=== PATIENT | female | born 1960 | race Caucasian/White ===

== ENCOUNTER → 2016-10-01 | Outpatient (CLI) | payer OTHER ==
[~2016-10-01] MED LIST: ACET500T13 PO; ADVI200T PO; ALPR-138 PO; ALPR0.25 PO; BACT800T5 PO; BUPR150CR PO; CHOL50008 PO; CLIN1CAP6 PO; COLL30T TOPICAL; EASY1MIS7; GLIP10TA6 PO; GLUC10TA3 PO; GLUCOSE METER; GLUCTAB PO; GLUCTES27; Glucometer; HYDR-3516 PO; HYDR1CRE TOP; IBUP200C PO; INSU100V2 SQ; LEVA750T9 PO; LEVEMIR SQ; LEVO100T4 PO; LEVO100T5 PO; LISI-363 PO; LISI-515 PO; LOVA20TA PO; METR-1 PO; MULTCAP3 PO; MULTTAB67 PO; NOVOLOGP2 SQ; NOVORP2 SQ; SENN1TAB PO; VITA500015 PO; WALKER; WELL150T PO; ZOFR4TAB PO; [UNRECOGNIZED DRUG - OTHER]; [UNRECOGNIZED DRUG - SUPPLY]; [UNRECOGNIZED DRUG - SUPPLY]; glucose test strips
[2016-10-01 13:38] LABS: ANION GAP 10 MEQ/L (5-15); BICARBONATE 26.1 MEQ/L (21.0-32.0); BLOOD UREA NITROGEN 23 MG/DL (7-18); CHLORIDE 100 MEQ/L (98-107); GLOMERULAR FILTRATION RATE 73 ML/MIN (>89); HDL CHOLESTEROL 51.3 MG/DL (40.0-60.0); LDL CHOLESTEROL 117 MG/DL (0-99); POTASSIUM 4.9 MEQ/L (3.5-5.1); SODIUM (NA) 136 MEQ/L (136-145)
[2016-10-01 16:03] LABS: HEMOGLOBIN A1a 1.1 %
[2016-10-01 17:20] LABS: HEMOGLOBIN A1b 3.7 %; HEMOGLOBIN P3 5.2 %
[2016-10-01 17:21] LABS: HEMOGLOBIN LA1C 3.2 %
== END ==
LOC: PLAB 11:06
PROVIDERS: ATTEND Family Medicine
DX: E78.5 Hyperlipidemia, unspecified (principal); I10 Essential (primary) hypertension; Z11.9 Encounter for screening for infectious and parasitic diseases, unspecified
CPT/HCPCS: 80048; 80061; 83036

== ENCOUNTER 2017-01-21 20:21 | Inpatient (IN) | payer OTHER ==
[~2017-01-21] VITALS: Ht 167.6 cm; Wt 98.6 kg
[~2017-01-21 20:21] MED LIST changes: -ACET500T13 PO; -ADVI200T PO; -ALPR-138 PO; -ALPR0.25 PO; -BACT800T5 PO; -BUPR150CR PO; -COLL30T TOPICAL; -EASY1MIS7; -GLUC10TA3 PO; -HYDR-3516 PO; -HYDR1CRE TOP; -INSU100V2 SQ; -LEVA750T9 PO; -LEVEMIR SQ; -LEVO100T4 PO; -LISI-363 PO; -METR-1 PO; -MULTCAP3 PO; -NOVOLOGP2 SQ; -NOVORP2 SQ; -SENN1TAB PO; -VITA500015 PO; -WALKER; -WELL150T PO; -ZOFR4TAB PO; -[UNRECOGNIZED DRUG - OTHER]
[2017-01-21 20:25] VITALS: BP 199/93; PULSE 113; RESP 16; TEMP 99.5; O2SAT 97
[2017-01-21] MEDS ORDERED: MORPHINE SULFATE 8 MG/ML INJ IV PUSH ONE (21:30)
[2017-01-21] MEDS ORDERED: CLINDAMYCIN INJ 900 MG in SODIUM CHLORIDE 0.9% INJ 100 ML IV ONE (21:30)
[2017-01-21] MEDS ORDERED: TETANUS/DIPHTHERIA TOXOID ADULT 0.5 ML VIAL IM ONE (21:30)
[2017-01-21] MEDS ORDERED: ONDANSETRON HCL 4 MG/2 ML VIAL IV PUSH ONE (21:30)
[2017-01-21] MEDS ORDERED: SODIUM CHLORIDE 0.9% FLUSH 10 ML FLUSH IVF PRN (21:30)
[2017-01-21] MEDS ORDERED: LIDOCAINE 1%/EPINEPHrine 1:100,000 SOLN 20 ML VIAL INFIL ONE (21:30)
--- NOTE | 2017-01-21 21:40 | PD ---
HPI . Right foot sore Chief Complaint: Laceration/Skin Injury Time Seen by Provider: 21:20 Travel History International Travel<30 days: No Contact w/Intl Traveler<30days: No Traveled to known affect area: No History of Present Illness HPI This is a diabetic patient who presents with the chief complaint of a sore on her right foot. She reports she's had a callus on her foot for a while and it came off yesterday. It is now painful and red and is draining some purulent material. She rates her pain as 6/10. She states that she has had a poor appetite as well as myalgias and nausea. There has been no known fever. No exacerbating or relieving factors. PFSH Social History Tobacco Use: No Allergies-Medications (Allergen,Severity, Reaction): Coded Allergies: No Known Allergies (Unverified , 01/21/17) Reported Meds & Prescriptions Reported Meds & Active Scripts Active Lisinopril 20 Mg Tab 20 Mg PO DAILY Jeffry Contour Next Blood Test Strips (Blood Glucose Test Strips) 1 Katelyn Katelyn 1 Strip BID Clindamycin (Clindamycin HCl) 300 Mg Cap 300 Mg PO QID Lovastatin 20 Mg Tab 20 Mg PO DAILY Levothyroxine (Levothyroxine Sodium) 100 Mcg Tab 100 Mcg PO DAILY Glipizide 10 Mg Tab 10 Mg PO BIDAC Take 30 minutes before a meal [contour next test] Strips BID [glucose test strips] 1 Strips BID [contour next lancets] 1 QID [glucose meter] QID Contour Next Blood Glucose Meter [Glucometer] 1 QID check glucose qid ac and hs, keep log. Include lancets, wipes. Reported Multiple Vitamin 1 Tab 1 Tab PO DAILY Ibuprofen 200 Mg Cap 200 Mg PO Q6H PRN Glucophage XR (Metformin HCl) 500 Mg Crissy 1,000 Mg PO TWICE A DAY With evening meal Vitamin D3 (Cholecalciferol) 5,000 Unit Tab 5,000 Units PO DAILY Review of Systems Except as stated in HPI: all other systems reviewed are Neg General / Constitutional: Positive: Other (malaise), No: Fever, Chills Gastrointestinal: Positive: Nausea, Loss of Appetite Musculoskeletal: Positive: Myalgias Skin: Positive Change in Pigmentation, Positive Lesions Physical Exam Narrative GENERAL: Awake and alert and in no acute distress. SKIN: Warm and dry. Erythema of the right foot at the first MTP joint. She has an ulcer on the plantar aspect with purulent drainage. HEAD: Atraumatic. Normocephalic. EYES: Pupils equal and round. NECK: Trachea midline. CARDIOVASCULAR: Regular rate and rhythm. RESPIRATORY: No accessory muscle use. MUSCULOSKELETAL: No obvious deformities. No edema. NEUROLOGICAL: Awake and alert. No obvious cranial nerve deficits. Motor grossly within normal limits. Normal speech. PSYCHIATRIC: Appropriate mood and affect; insight and judgment normal. Data Data Last Documented VS Vital Signs Date Time Temp Pulse Resp B/P Pulse Ox O2 Delivery O2 Flow Rate FiO2 01/21/17 20:25 99.5 113 16 199/93 97 Room Air Orders Basic Metabolic Panel (Bmp) (01/21/17 21:24) Complete Blood Count With Diff (01/21/17 21:24) Blood Culture (01/21/17 21:24) Wound Culture And Gram Stain (01/21/17 21:24) Iv Access Insert/Monitor (01/21/17 21:24) Sodium Chloride 0.9% Flush (Ns Flush) (01/21/17 21:30) Clindamycin Inj (Cleocin Inj) (01/21/17 21:30) Tetanus/Diphtheria Tox Adult (Tetanus/Di (01/21/17 21:30) Morphine Inj (Morphine Inj) (01/21/17 21:30) Ondansetron Inj (Zofran Inj) (01/21/17 21:30) Foot, Limited (2vws) (01/21/17 21:24) C-Reactive Protein (Crp) (01/21/17 21:24) Lidoca-Epi Pf 1%-1:200,000 Inj (Xylocain (01/21/17 22:45) Non-Formulary Drug (01/21/17 22:30) Labs Laboratory Tests Test 01/21/17 22:05 White Blood Count 17.9 TH/MM3 Red Blood Count 4.45 MIL/MM3 Hemoglobin 12.8 GM/DL Hematocrit 38.1 % Mean Corpuscular Volume 85.6 FL Mean Corpuscular Hemoglobin 28.7 PG Mean Corpuscular Hemoglobin 33.6 % Concent Red Cell Distribution Width 13.0 % Platelet Count 292 TH/MM3 Mean Platelet Volume 7.7 FL Neutrophils (%) (Auto) 79.2 % Lymphocytes (%) (Auto) 13.0 % Monocytes (%) (Auto) 6.6 % Eosinophils (%) (Auto) 0.4 % Basophils (%) (Auto) 0.8 % Neutrophils # (Auto) 14.2 TH/MM3 Lymphocytes # (Auto) 2.3 TH/MM3 Monocytes # (Auto) 1.2 TH/MM3 Eosinophils # (Auto) 0.1 TH/MM3 Basophils # (Auto) 0.1 TH/MM3 CBC Comment DIFF FINAL Differential Comment Sodium Level 131 MEQ/L Potassium Level 4.1 MEQ/L Chloride Level 95 MEQ/L Carbon Dioxide Level 27.6 MEQ/L Anion Gap 8 MEQ/L Blood Urea Nitrogen 14 MG/DL Creatinine 0.92 MG/DL Estimat Glomerular Filtration 63 ML/MIN Rate Random Glucose 345 MG/DL Calcium Level 8.9 MG/DL C-Reactive Protein 15.60 MG/DL MDM Medical Decision Making Medical Screen Exam Complete: Yes Emergency Medical Condition: Yes Medical Record Reviewed: Yes (patient was seen in urgent care on 11/05/16 for a wound on her left fifth toe. It was treated with clindamycin.) Differential Diagnosis Differential diagnosis of diabetic foot ulcer includes superficial wound, cellulitis, abscess, osteomyelitis, sepsis Narrative Course Patient presents with a diabetic foot ulcer on the right foot. She will be evaluated for possible osteomyelitis. I plan to debride the wound. Vital Signs Date Time Temp Pulse Resp B/P Pulse Ox O2 Delivery O2 Flow Rate FiO2 01/21/17 20:25 99.5 113 16 199/93 97 Room Air Last Impressions Foot X-Ray 01/21/172123 Signed Impressions: Service Date/Time: Saturday, January 21, 2017 21:37 - CONCLUSION: No radiographic evidence to suggest osteomyelitis. Kurt Geiger Jr., MD The x-ray was independently viewed by me. CBC Diagram 01/21/17 22:05 BMP Diagram 01/21/17 22:05 C-reactive protein is 15.6 The plan is to admit this patient for IV antibiotics. She will probably need to have an MRI of her foot and referral to podiatry. Procedures Procedure Narrative Her foot was prepped with Betadine. It was then anesthetized with about 6 cc of 1% lidocaine with epi. Necrotic tissue was then debrided from the area. I debrided it until I got to tissue that bled. I did get cultures from the wound. She tolerated the procedure well without complication. She had very little sensation. She didn't feel the lidocaine much at all. The ulceration extends into the muscular tissue but not to the bone. Sepsis Criteria SIRS Criteria (2 or more): Heart rate over 90, WBC > 97201, < 4000 or > 10% bands Sepsis Criteria (SIRS+source): Infect source susp/known Criteria Outcome: Meets SIRS criteria, Meets sepsis criteria Diagnosis Primary Impression: Diabetic foot ulcer Qualified Code: E11.621 - Diabetic ulcer of toe of right foot associated with type 2 diabetes mellitus, with necrosis of muscle Additional Impression: Sepsis affecting skin Admitting Information Admitting Physician Requests: Admit Patient Instructions: Diabetic Foot Ulcers (DC), General Instructions Condition: Stable Cecille Robison MD Jan 21, 2017 21:40
--- NOTE | 2017-01-21 21:51 | RADRPT ---
EXAM DATE/TIME: 01/21/2017 21:37 [facility] COMPARISON: No previous studies available for comparison. INDICATIONS : Pain and inflammation on pedal surface under first digit. MEDICAL HISTORY : None. SURGICAL HISTORY : None. ENCOUNTER: Initial ACUITY: 1 day PAIN SCORE: 5/10 LOCATION: Right pedal surface under first digit. FINDINGS: Two view examination of the right foot demonstrates no soft tissue swelling, dislocation, or fracture . No cortical destruction or lucency. Spurring of the calcaneus. Degenerative changes involving the m idfoot. The calcaneus is intact. Bony mineralization is normal. CONCLUSION: No radiographic evidence to suggest osteomyelitis. Kurt Geiger Jr., MD on January 21, 2017 at 21:48 Board Certified Radiologist. This report was verified electronically.
[2017-01-21] MEDS ORDERED: LIDOCAINE 1%/EPINEPHrine 1:100,000 SOLN 30 ML VIAL INFIL ONE (22:00)
[2017-01-21 22:22] LABS: AUTOMATED NEUTROPHIL # 14.2 TH/MM3 (1.8-7.7); BASOPHIL # 0.1 TH/MM3 (0-0.2); BASOPHIL % 0.8 % (0.0-2.0); EOSINOPHIL # 0.1 TH/MM3 (0-0.4); EOSINOPHIL % 0.4 % (0.0-4.0); HEMATOCRIT 38.1 % (35.0-46.0); HEMO FLAGS DIFF FINAL; LYMPHOCYTE # 2.3 TH/MM3 (1.0-4.8); MEAN CELL VOLUME 85.6 FL (80.0-100.0); MEAN CORPUSCULAR HEMOGLOBIN 28.7 PG (27.0-34.0); MEAN CORPUSCULAR HGB CONC 33.6 % (32.0-36.0); MONO % 6.6 % (0.0-8.0); NEUT % 79.2 % (16.0-70.0); PLATELET COUNT 292 TH/MM3 (150-450); RED BLOOD COUNT 4.45 MIL/MM3 (4.00-5.30); WHITE BLOOD COUNT 17.9 TH/MM3 (4.0-11.0)
[2017-01-21] MEDS ORDERED: NON-FORMULARY DRUG ONE (22:30)
[2017-01-21] MEDS ORDERED: LIDOCAINE 1%/EPINEPHrine 1:200,000 PF SOLN 10 ML VIAL INFIL ONE (22:45)
[2017-01-21 22:47] LABS: BICARBONATE 27.6 MEQ/L (21.0-32.0); POTASSIUM 4.1 MEQ/L (3.5-5.1)
--- NOTE | 2017-01-21 23:15 | HHI.HP ---
[facility] Service Family Medicine Primary Care Physician Steph Bowman MD Admission Diagnosis diabetic foot ulcer Diagnoses: International Travel<30 Days: No Contact w/Intl Traveler<30days: No Known Affected Area: No History of Present Illness Ms. Rosales is a 56 y/o F with a PMHx of T2DM, HTN, and depression/anxiety presenting with a R foot ulceration. She reports that this ulceration started 3 weeks ago under a callus formation on the ball of her foot. Last night she states that the wound "exploded" and changed colors from white to purple with the callus coming off. She has also noticed swelling of her R foot over the last 24 hours with some serosanguineous drainage prior to presenting to the ER. Her pain prior to presenting was an 8/10 on the plantar aspect of her R foot without radiation. She endorses anorexia, nausea, fevers, myalgias, and diaphoresis over the last 24 hours. She has neuropathy from her DM, but states that her overall felling in the RLE has not changed. Of note earlier this year she had large callus on her L foot, but also became ulcerated. She was seen by an urgent care for debridement and was prescribed Clindamycin. She was seen by her PCP, Dr. Milagros Bowman of the [facility], and was referred to ID for further management and Endocrinology for further management of DM. Her only other complaint is thigh cramps for which she is concerned about her statin medication. She is able to ambulate and rates the cramps as very mild. On ROS she reports multiple semi-formed yellow stools over the last 24 hours without any blood. She is unable to report any dietary changes or other precipitating factors that could be causing these changes in BMs. Otherwise she has no complaints and denies any SOB, chest pain, V/D, ABD pain, or calf tenderness. ( Hector Rodríguez MD R1) Review of Systems Constitutional: COMPLAINS OF: Fever, Chills Endocrine: COMPLAINS OF: Polydipsia, DENIES: Polyuria Eyes: DENIES: Blurred vision Ears, nose, mouth, throat: DENIES: Throat pain Respiratory: DENIES: Cough, Shortness of breath Cardiovascular: DENIES: Chest pain, Palpitations Gastrointestinal: COMPLAINS OF: Diarrhea (Yellow, partially formed stool over last 24 hours ), Nausea, DENIES: Abdominal pain, Vomiting Genitourinary: DENIES: Dysuria Musculoskeletal: DENIES: Joint pain, Back pain Integumentary: DENIES: Rash Hematologic/lymphatic: DENIES: Lymphadenopathy Neurologic: COMPLAINS OF: Headache Psychiatric: DENIES: Mood changes (Hector Rodríguez MD R1) Past Family Social History Past Medical History Hypertension Type 2 diabetes Hypothyroidism - has not been taking her medication HPLD Overdose in a suicide attempt at age 11 because of incest Left wrist fracture age 9 Frozen shoulder on the left resolved with physical therapy and swimming Past Surgical History Bilateral cataracts 2010 Cosmetic surgery left cheek. (Hector Rodríguez MD R1) Allergies: Coded Allergies: No Known Allergies (Unverified , 01/21/17) Family History Father at age 83 of emphysema, he also had type 2 diabetes and multiple cardiac caths. He was on hospice Mother living at 85 with elevated cholesterol and depression Brother age 57 with bipolar disorder from whom she is estranged Brother age 51 with hypertension, probably alcoholic Family history is positive for diabetes in her paternal grandmother, heart disease in her paternal aunt and uncle, paternal aunt of sudden CT. Hypertension in her mother, paternal great-grandfather committed suicide. Alcohol is in her brother, depression on both sides of the family. Paternal grandmother had colon cancer and paternal aunt had breast cancer bilaterally. Denies TB or kidney disease Social History She is . 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 She travels annually overseas, usually to [place]. Occasional alcohol Smoked socially in college over 30 years ago Denies illicit drug use 2-3 caffeine drinks daily Exercise walking and swimming which she has suspended since she experienced these symptoms. (Hector Rodríguez MD R1) Physical Exam Vital Signs Vital Signs Date Time Temp Pulse Resp B/P Pulse Ox O2 Delivery O2 Flow Rate FiO2 01/21/17 20:25 99.5 113 16 199/93 97 Room Air Physical Exam GENERAL: Well-nourished, well-developed 56-year-old female lying in bed in no acute distress SKIN: Warm and dry. No rash. HEENT: Atraumatic, normocephalic with EOMI. Pupils myotic s/p morphine administration. MMM with clear oropharynx. No LAD. No rhinorrhea. CARDIOVASCULAR: Regular rate and rhythm without obvious murmurs, gallops, or rubs. RESPIRATORY: Clear to auscultation bilaterally with no CRW. No increased work of breathing. GASTROINTESTINAL: Abdomen soft, non-tender, nondistended with positive bowel sounds. No masses or hepatosplenomegaly appreciated. MUSCULOSKELETAL: No cyanosis or edema. Strength grossly WNL. RLE: 3.5-4.5 cm circular ulceration of the plantar aspect of the right foot near the head of the first metatarsal. Granulation tissue oozing serosanguineous fluid S/P debridement by ER physician. No purulence or schuyler hemorrhage appreciated. Range of motion of the ankle and all digits intact. Sensation throughout the right lower extremity intact. Mild edema of the right foot to the ankle. 2+ DP/PT and popliteal pulses intact. No lymphadenopathy appreciated. NEURO/PSYCH: Afocal. Awake, alert, and oriented x3. Mildly anxious, but has appropriate interactions with examiners with normal insight and speech. Laboratory Laboratory Tests Test 01/21/17 22:05 White Blood Count 17.9 Red Blood Count 4.45 Hemoglobin 12.8 Hematocrit 38.1 Mean Corpuscular Volume 85.6 Mean Corpuscular Hemoglobin 28.7 Mean Corpuscular Hemoglobin 33.6 Concent Red Cell Distribution Width 13.0 Platelet Count 292 Mean Platelet Volume 7.7 Neutrophils (%) (Auto) 79.2 Lymphocytes (%) (Auto) 13.0 Monocytes (%) (Auto) 6.6 Eosinophils (%) (Auto) 0.4 Basophils (%) (Auto) 0.8 Neutrophils # (Auto) 14.2 Lymphocytes # (Auto) 2.3 Monocytes # (Auto) 1.2 Eosinophils # (Auto) 0.1 Basophils # (Auto) 0.1 CBC Comment DIFF FINAL Differential Comment Sodium Level 131 Potassium Level 4.1 Chloride Level 95 Carbon Dioxide Level 27.6 Anion Gap 8 Blood Urea Nitrogen 14 Creatinine 0.92 Estimat Glomerular Filtration 63 Rate Random Glucose 345 Calcium Level 8.9 C-Reactive Protein 15.60 Date/Time Procedure Status Source Growth 01/21/17 22:05 Aerobic Blood Culture Received Blood Peripheral Pending 01/21/17 22:05 Anaerobic Blood Culture Received Blood Peripheral Pending (Hector Rodríguez MD R1) Result Diagram: 01/21/17220401/21/172204 Assessment and Plan Assessment and Plan Ms. Rosales is a 56 y/o F with a PMHx of T2DM, HTN, and depression/anxiety presenting with a R foot ulceration to be admitted for antibiotic treatment and wound care. Code Status Full Discussed Condition With Dr. Robison, ER Physician Dr. Gabe Tanner (Hector Rodríguez MD R1) Attending Attestation Patient seen and examined. Case reviewed and discussed with the resident team. Agree with plan of care as discussed with me and documented in the resident note. (Steph Bowman MD) Problem List: (1) Diabetic foot ulcer Status: Acute Plan: Patient presenting with right foot ulceration at the head of the first metatarsal. ER physician, Dr. Robison, has debrided the wound of necrotic tissue down to good granulation tissue including the muscle, but not into the bone. Wound cultures were sent. She will be admitted for IV ABX and further wound management. Foot x-ray: No radiographic evidence of osteomyelitis CBC: WBC 17.9 with 79.2% neutrophils BMP: Sodium 131, glucose 345 CRP 15.6 ESR: 64 Lactic acid: 1.1 Blood cultures 2: Pending Consult podiatry, appreciate recommendations Procedures: Bedside wound debridement performed by Dr. Robison, ER physician, on 01/21/17 ( lidocaine and morphine used during procedure) Wound culture: Pending Medications: Clindamycin 600 mg IV every 8 hours Levofloxacin 750 mg by mouth daily Hydrocodone 5 mg for pain 1-5 every 4 hours, hydrocodone 7.5 mg for pain 6-10 every 4 hours, Toradol 30 mg every 6 hours when necessary for breakthrough pain Acetaminophen 500 mg every 4 hours when necessary for fever Tetanus/Diphtheria Booster Shot (2) Sepsis affecting skin Status: Acute Plan: Patient presenting with right foot ulceration meeting sepsis criteria with tachycardia and leukocytosis. Please see plan as above (3) Diabetes mellitus type 2 in obese Status: Acute Plan: Patient with uncontrolled type 2 diabetes and unsure of home glucose log. Currently on glipizide 10 mg twice a day and metformin 1000 mg twice a day. Hold home glipizide and metformin Sliding scale insulin per protocol Consult diabetic education (4) Hypertension Status: Acute Plan: Patient with history hypertension currently controlled on lisinopril. Continue lisinopril 20 mg daily Clonidine 0.1 mg every 6 hours when necessary for SBP greater than 180 or DBP greater than 100 (5) Hypothyroidism (acquired) Status: Chronic Plan: Patient with reported hypothyroidism. Currently on 100 g of levothyroxine daily, however does report noncompliance. TSH: Pending Continue levothyroxine 100 g daily (6) Dyslipidemia Status: Chronic Plan: Patient with history of dyslipidemia. Reports that she is currently on lovastatin 20 mg daily, however has recently had cramping episodes which she believes could be related to her medication. Hold lovastatin Lipid panel: Pending CK: Pending (7) Depression Status: Chronic Plan: Patient with reported depression. Currently on bupropion 150 mg twice a day. Continue bupropion 150 mg twice a day. (8) Vitamin D insufficiency Status: Chronic Plan: Continue home with vitamin D supplementation (9) Nutrition, metabolism, and development symptoms Status: Chronic Plan: Fluids: None as patient is tolerating fluids by mouth Diet: Diabetic diet as tolerated Electrolytes: WNL, continue to monitor Pain: Hydrocodone 5 mg for pain 1-5 every 4 hours, hydrocodone 7.5 mg for pain 6-10 every 4 hours, Toradol 30 mg every 6 hours when necessary for breakthrough pain Prophylaxis: Zofran 4 mg every 6 hours when necessary for nausea or vomiting, Acetaminophen 500 mg every 4 hours when necessary for fever (10) Surgical contraindication to deep vein thrombosis (DVT) prophylaxis Status: Acute Plan: Medical team will hold pharmacological DVT prophylaxis as patient may require further debridement of right foot ulcer SCD/TEDs ordered (Hector Rodríguez MD R1) Physician Certification 2 Midnight Certification Type: Admission for Inpatient Services Order for Inpatient Services The services are ordered in accordance with Medicare regulations or non- Medicare payer requirements, as applicable. In the case of services not specified as inpatient-only, they are appropriately provided as inpatient services in accordance with the 2-midnight benchmark. Estimated LOS (days): 3 3 days is the estimated time the patient will need to remain in the hospital, assuming treatment plan goals are met and no additional complications. Post-Hospital Plan: Home (Hector Rodríguez MD R1) Problem Qualifiers (1) Diabetic foot ulcer: Qualified Code: E11.621 - Diabetic ulcer of toe of right foot associated with type 2 diabetes mellitus, with necrosis of muscle (2) Hypertension: Qualified Code: I10 - Essential hypertension Hector Rodríguez MD R1 Jan 21, 2017 23:15 Steph Bowman MD Jan 22, 2017 09:54
[2017-01-21 23:44] VITALS: BP 165/72; PULSE 88; RESP 18; O2SAT 97
[2017-01-22] VITALS (7 sets, daily range): BP systolic 116–162; BP diastolic 65–87; PULSE 82–99; RESP 16–19; TEMP 96.5–99; O2SAT 95–100
[2017-01-22] MEDS ORDERED: ACETAMINOPHEN 500 MG CPLT PO PRN
[2017-01-22] MEDS ORDERED: ACETAMINOPHEN/HYDROcodone 325 MG/5 MG TAB PO PRN
[2017-01-22] MEDS ORDERED: KETOROLAC TROMETHAMINE 30 MG/ML (IVP) VIAL IVP PRN
[2017-01-22] MEDS ORDERED: SODIUM CHLORIDE 0.9% FLUSH 10 ML FLUSH IV FLUSH PRN
[2017-01-22] MEDS ORDERED: cloNIDine HCL 0.1 MG TAB PO PRN (00:30)
[2017-01-22] MEDS ORDERED: GLUCAGON 1 MG/ML VIAL OTHER PRN (00:30)
[2017-01-22] MEDS ORDERED: DEXTROSE 50% IN WATER 50 ML VIAL(D50) IV PRN (00:30)
[2017-01-22] MEDS ORDERED: ONDANSETRON HCL 4 MG/2 ML VIAL IV PUSH PRN (02:15)
[2017-01-22] MEDS: ACETAMINOPHEN/HYDROcodone 325 MG/7.5 MG TAB PO PRN (03:55)
[2017-01-22] MEDS: LEVOTHYROXINE SODIUM 100 MCG TAB PO SCH (06:28)
[2017-01-22] MEDS: CLINDAMYCIN INJ 600 MG in SODIUM CHLORIDE 0.9% INJ 100 ML IV SCH ×3 (06:28→22:53)
[2017-01-22] MEDS: INSULIN ASPART SUPPLEMENTAL SCALE SQ SCH ×4 (06:36→21:00)
[2017-01-22] MEDS: buPROPion HCL 150 MG SUSTAINED RELEASE TAB PO SCH ×2 (08:12→22:52)
[2017-01-22] MEDS: LISINOPRIL 20 MG TAB PO SCH (08:13)
[2017-01-22] MEDS: LEVOFLOXACIN 750 MG TAB PO SCH (08:13)
[2017-01-22] MEDS: MULTIVITAMIN TAB PO SCH (08:13)
[2017-01-22] MEDS: SODIUM CHLORIDE 0.9% FLUSH 10 ML FLUSH IV FLUSH SCH ×2 (08:13→22:52)
--- NOTE | 2017-01-22 09:12 | HHI.FPPN ---
Subjective Remarks Pt. seen, examined and discussed with Drs. Valverde and Zach. This is a 56 yo female known to me with poorly controlled diabetes, hypothyroidism, who noted approximately 2 weeks ago three calluses on her right foot distally, at the base of the great toe and also on the 5th toe side. These calluses developed blisters beneath them and when the callus came off, pt. noted tunneling of the wound deeper into the foot. She has been soaking her feet to try to resolve this. Yesterday she noted swelling of the distal right foot as well as a bruised appearance at the medial base of the great toe, associated with fever. She came to the emergency department for care. She has not taken her levothyroxine for 1-2 weeks. Also reports bilateral thigh discomfort which she attributed to her statin, which she has been taking for several years. Thus, she stopped the statin. See H&P for this admission for additional historical detail as well as past, family and social history. Objective Vitals Vital Signs Date Time Temp Pulse Resp B/P Pulse Ox O2 Delivery O2 Flow Rate FiO2 01/22/17 04:00 97.1 95 18 136/70 96 01/22/17 00:40 97.9 96 19 116/69 97 01/22/17 00:02 125/70 01/21/17 23:44 88 18 165/72 97 Room Air 01/21/17 20:25 99.5 113 16 199/93 97 Room Air I/O 01/21/17 01/21/17 01/21/17 01/22/17 01/22/17 01/22/17 07:00 15:00 23:00 07:00 15:00 23:00 Intake Total 480 ml Balance 480 ml Intake Oral 480 ml # Voids 1 Result Diagram: 01/21/17220401/21/175 Other Results Microbiology Date/Time Procedure Status Source Growth 01/21/17 22:05 Gram Stain - Final Resulted Wound Foot 01/21/17 22:05 Wound Culture Resulted Wound Foot Pending 01/21/17 22:05 Aerobic Blood Culture Received Blood Peripheral Pending 01/21/17 22:05 Anaerobic Blood Culture Received Blood Peripheral Pending Imaging Last Impressions Foot X-Ray 01/21/172123 Signed Impressions: Service Date/Time: Saturday, January 21, 2017 21:37 - CONCLUSION: No radiographic evidence to suggest osteomyelitis. Kurt Geiger Jr., MD Objective Remarks O. CONSTITUTIONAL/GEN: normally nourished, in NAD. EYES: conjunctiva normal, PERRLA, EOMI. NECK: supple LUNGS: clear A-P, respiratory effort is normal. CARDIOVASCULAR: RR without murmur or gallop. No significant edema. GI/ABD: soft without masses, without organomegaly. BS + NEURO: No focal deficits. SKIN: color normal, no rashes noted. HEME/LYMPH: no bruising, petechia or significant adenopathy MUSC: back is normal in appearance. Extremities are normal in appearance with the exception of swelling, erythema distal right foot with a large ulcer draining on the plantar surface of the base of the great toe with an area of bruising over the medial MP joint of the great toe which is fluctuant. Also noted some erythema and eschar formation at the lateral base of the left 5th toe. PSYCH/MENTAL STATUS: Alert and oriented x 3. A/P Assessment and Plan Ms. Rosales is a 56 y/o F with a PMHx of T2DM, HTN, and depression/anxiety presenting with a R foot ulceration to be admitted for antibiotic treatment and wound care. Problem List: (1) Diabetic foot ulcer Status: Acute Plan: Patient presenting with right foot ulceration at the head of the first metatarsal. ER physician, Dr. Robison, has debrided the wound of necrotic tissue down to good granulation tissue including the muscle, but not into the bone. Wound cultures were sent. She will be admitted for IV ABX and further wound management. Foot x-ray: No radiographic evidence of osteomyelitis CBC: WBC 17.9 with 79.2% neutrophils BMP: Sodium 131, glucose 345 CRP 15.6 ESR: 64 Lactic acid: 1.1 Blood cultures 2: Pending Consult podiatry, appreciate recommendations Procedures: Bedside wound debridement performed by Dr. Robison, ER physician, on 01/21/17 ( lidocaine and morphine used during procedure) Wound culture: Pending Medications: Clindamycin 600 mg IV every 8 hours Levofloxacin 750 mg by mouth daily Hydrocodone 5 mg for pain 1-5 every 4 hours, hydrocodone 7.5 mg for pain 6-10 every 4 hours, Toradol 30 mg every 6 hours when necessary for breakthrough pain Acetaminophen 500 mg every 4 hours when necessary for fever Tetanus/Diphtheria Booster Shot (2) Sepsis affecting skin Status: Acute Plan: Patient presenting with right foot ulceration meeting sepsis criteria with tachycardia and leukocytosis. Please see plan as above (3) Diabetes mellitus type 2 in obese Status: Acute Plan: Patient with uncontrolled type 2 diabetes and unsure of home glucose log. Currently on glipizide 10 mg twice a day and metformin 1000 mg twice a day. Hold home glipizide and metformin Sliding scale insulin per protocol Consult diabetic education (4) Hypertension Status: Acute Plan: Patient with history hypertension currently controlled on lisinopril. Continue lisinopril 20 mg daily Clonidine 0.1 mg every 6 hours when necessary for SBP greater than 180 or DBP greater than 100 (5) Hypothyroidism (acquired) Status: Chronic Plan: Patient with reported hypothyroidism. Currently on 100 g of levothyroxine daily, however does report noncompliance. TSH: Pending Continue levothyroxine 100 g daily (6) Dyslipidemia Status: Chronic Plan: Patient with history of dyslipidemia. Reports that she is currently on lovastatin 20 mg daily, however has recently had cramping episodes which she believes could be related to her medication. Hold lovastatin Lipid panel: Pending CK: Pending (7) Depression Status: Chronic Plan: Patient with reported depression. Currently on bupropion 150 mg twice a day. Continue bupropion 150 mg twice a day. (8) Vitamin D insufficiency Status: Chronic Plan: Continue home with vitamin D supplementation (9) Nutrition, metabolism, and development symptoms Status: Chronic Plan: Fluids: None as patient is tolerating fluids by mouth Diet: Diabetic diet as tolerated Electrolytes: WNL, continue to monitor Pain: Hydrocodone 5 mg for pain 1-5 every 4 hours, hydrocodone 7.5 mg for pain 6-10 every 4 hours, Toradol 30 mg every 6 hours when necessary for breakthrough pain Prophylaxis: Zofran 4 mg every 6 hours when necessary for nausea or vomiting, Acetaminophen 500 mg every 4 hours when necessary for fever (10) Surgical contraindication to deep vein thrombosis (DVT) prophylaxis Status: Acute Plan: Medical team will hold pharmacological DVT prophylaxis as patient may require further debridement of right foot ulcer SCD/TEDs ordered Problem Qualifiers (1) Diabetic foot ulcer: Qualified Code: E11.621 - Diabetic ulcer of toe of right foot associated with type 2 diabetes mellitus, with necrosis of muscle (2) Hypertension: Qualified Code: I10 - Essential hypertension Steph Bowman MD Jan 22, 2017 09:12
[2017-01-22 10:09] LABS: AUTOMATED NEUTROPHIL # 9.1 TH/MM3 (1.8-7.7); BASOPHIL # 0.1 TH/MM3 (0-0.2); BASOPHIL % 0.5 % (0.0-2.0); EOSINOPHIL # 0.1 TH/MM3 (0-0.4); EOSINOPHIL % 0.6 % (0.0-4.0); HEMATOCRIT 35.3 % (35.0-46.0); HEMO FLAGS DIFF FINAL; LYMPH % 14.9 % (9.0-44.0); LYMPHOCYTE # 1.8 TH/MM3 (1.0-4.8); MEAN CELL VOLUME 84.5 FL (80.0-100.0); MEAN CORPUSCULAR HEMOGLOBIN 28.8 PG (27.0-34.0); MEAN CORPUSCULAR HGB CONC 34.1 % (32.0-36.0); MONO % 8.2 % (0.0-8.0); NEUT % 75.8 % (16.0-70.0); PLATELET COUNT 282 TH/MM3 (150-450); RED BLOOD COUNT 4.18 MIL/MM3 (4.00-5.30); RED CELL DISTRIBUTION WIDTH 13.1 % (11.6-17.2)
[2017-01-22 10:28] LABS: WESTERGREN SEDIMENTATION RATE 51 mm/hr (0-30)
[2017-01-22 10:34] LABS: ANION GAP 7 MEQ/L (5-15); AST (GOT) 7 U/L (15-37); BICARBONATE 29.1 MEQ/L (21.0-32.0); BLOOD UREA NITROGEN 12 MG/DL (7-18); CHLORIDE 99 MEQ/L (98-107); GLOMERULAR FILTRATION RATE 89 ML/MIN (>89); POTASSIUM 4.2 MEQ/L (3.5-5.1); SODIUM (NA) 135 MEQ/L (136-145)
[2017-01-22 10:38] LABS: ALKALINE PHOSPHATASE 64 U/L (45-117); ALT (GPT) 22 U/L (10-53); TOTAL BILIRUBIN ADULT 0.3 MG/DL (0.2-1.0)
[2017-01-22] MEDS ORDERED: GADODIAMIDE PF 287 MG/ML 20 ML VIAL (for RAD MRI) IV ONE (12:52)
[2017-01-22] MEDS ORDERED: LORazepam 0.5 MG TAB PO ONE (13:00)
--- NOTE | 2017-01-22 14:01 | RADRPT ---
EXAM DATE/TIME: 01/22/2017 12:25 [facility] COMPARISON: No previous studies available for comparison. INDICATIONS : Osteomyelitis. CONTRAST: 20 cc Omniscan (gadodiamide) IV MEDICAL HISTORY : Hypertension. Diabetes mellitus type 2. SURGICAL HISTORY : None. ENCOUNTER: Initial ACUITY: 1 day PAIN SCORE: 2/10 LOCATION: Right foot. TECHNIQUE: Multiplanar, multisequence MRI examination was performed without contrast and after the intravenous a dministration of gadolinium. FINDINGS: Cutaneous ulceration at the medial and plantar aspects of the great toe. Subcutaneous sinus tract/non enhancing devitalized tissue extends between the areas of ulceration. Severe surrounding ill-defined edema and enhancement indicating cellulitis. No defined drainable abscess in the soft tissues. The ab normal soft tissue enhancement extends to the medial and plantar margins of the great toe metatarsoph alangeal joint and to the plantar surface of the medial sesamoid. Bipartite medial sesamoid. Bone mar row signal in this region is otherwise within normal limits. No bone erosion. No evidence of osteomye litis. All of the visualized tendons are intact. Plantar neurosis intact. CONCLUSION: 1. Cutaneous ulceration of the great toe with severe surrounding cellulitis and central sinus tract o r devitalized tissue. 2. No evidence of defined abscess or osteomyelitis. Favian Shabazz MD on January 22, 2017 at 13:44 Board Certified Radiologist. This report was verified electronically.
[2017-01-22] MEDS: CHOLECALCIFEROL (VIT D3) 5000 UNIT CAP PO SCH (17:42)
--- NOTE | 2017-01-22 21:55 | PD.CONS ---
History of Present Illness Service Podiatry Consult Requested By Reason for Consult R foot infection Primary Care Physician Steph Bowman MD Diagnoses: History of Present Illness 56 y/o F with a PMHx of T2DM, HTN, and depression/anxiety presented to ED with a R foot ulceration. She states it started as a callus that ulcerated, then began to change colors a few days ago and had drainage and redness that concerned her enough to come to ED. Past Family Social History Allergies: Coded Allergies: No Known Allergies (Unverified , 01/21/17) Past Medical History Hypertension Type 2 diabetes Hypothyroidism Hyperlipidemia Overdose in a suicide attempt at age 11 because of incest Left wrist fracture age 9 Frozen shoulder Past Surgical History Bilateral cataracts 2010 Cosmetic surgery left cheek Active Ordered Medications Current Medications Medications (Trade) Dose Ordered Sig/Agry Route Start Time Stop Time Status Last Admin (Vitamin D3) 5,000 units DAILY PO 01/22/17 09:00 01/22/17 17:42 (Synthroid) 100 mcg DAILY@0600 PO 01/22/17 06:00 01/22/17 06:28 (Prinivil) 20 mg DAILY PO 01/22/17 09:00 01/22/17 08:13 (Theragran) 1 tab DAILY PO 01/22/17 09:00 01/22/17 08:13 (NS Flush) 2 ml BID IV FLUSH 01/22/17 09:00 (NS Flush) 2 ml UNSCH PRN IV FLUSH 01/22/17 00:00 (Tylenol) 500 mg Q4H PRN PO 01/22/17 00:00 (Eakly 5-325 Mg) 1 tab Q4H PRN PO 01/22/17 00:00 (Eakly 7.5-325 Mg) 1 tab Q4H PRN PO 01/22/17 00:00 01/22/17 03:55 Ketorolac Tromethamine 30 mg 30 mg Q6H PRN IVP 01/22/17 00:00 01/27/17 00:00 (Cleocin Inj/NS Inj) 104 ml @ 208 mls/hr Q8H IV 01/22/17 06:00 01/22/17 14:00 (Levaquin) 750 mg DAILY PO 01/22/17 09:00 01/22/17 08:13 (Wellbutrin Sr) 150 mg BID PO 01/22/17 09:00 01/22/17 08:12 (D50w (Vial) Inj) 50 ml UNSCH PRN IV 01/22/17 00:30 (Glucagon Inj) 1 mg UNSCH PRN OTHER 01/22/17 00:30 (Catapres) 0.1 mg Q6H PRN PO 01/22/17 00:30 (Zofran Inj) 4 mg Q6HR PRN IV PUSH 01/22/17 02:15 01/22/17 09:50 Family History Father: emphysema, type 2 diabetes, heart issues Mother: elevated cholesterol, depression Brother: bipolar disorder Brother: hypertension, alcoholism Colon cancer, breast cancer Social History She is . 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 Occasional alcohol Smoked socially in college over 30 years ago Denies illicit drug use 2-3 caffeine drinks daily Physical Exam Vital Signs Vital Signs Date Time Temp Pulse Resp B/P Pulse Ox O2 Delivery O2 Flow Rate FiO2 01/22/17 20:00 99.0 99 18 161/74 98 01/22/17 16:00 96.8 97 16 162/87 100 01/22/17 12:00 97.0 90 16 137/68 97 01/22/17 08:00 96.5 82 16 126/65 95 01/22/17 04:00 97.1 95 18 136/70 96 01/22/17 00:40 97.9 96 19 116/69 97 01/22/17 00:02 125/70 01/21/17 23:44 88 18 165/72 97 Room Air Physical Exam Neurovascularly intact. Palpable pulses. Plantar R hallux/1st MTP area with necrotic bullous area, fluctuant, with erythema extending dorsally to midshaft 1st metatarsal area. Purulence expressed. Not painful. Suspect degree of neuropathy. Laboratory Laboratory Tests Test 01/21/17 01/22/17 01/22/17 22:05 01:30 09:52 White Blood Count 17.9 12.0 Red Blood Count 4.45 4.18 Hemoglobin 12.8 12.0 Hematocrit 38.1 35.3 Mean Corpuscular Volume 85.6 84.5 Mean Corpuscular Hemoglobin 28.7 28.8 Mean Corpuscular Hemoglobin 33.6 34.1 Concent Red Cell Distribution Width 13.0 13.1 Platelet Count 292 282 Mean Platelet Volume 7.7 7.3 Neutrophils (%) (Auto) 79.2 75.8 Lymphocytes (%) (Auto) 13.0 14.9 Monocytes (%) (Auto) 6.6 8.2 Eosinophils (%) (Auto) 0.4 0.6 Basophils (%) (Auto) 0.8 0.5 Neutrophils # (Auto) 14.2 9.1 Lymphocytes # (Auto) 2.3 1.8 Monocytes # (Auto) 1.2 1.0 Eosinophils # (Auto) 0.1 0.1 Basophils # (Auto) 0.1 0.1 CBC Comment DIFF FINAL DIFF FINAL Differential Comment Sodium Level 131 135 Potassium Level 4.1 4.2 Chloride Level 95 99 Carbon Dioxide Level 27.6 29.1 Anion Gap 8 7 Blood Urea Nitrogen 14 12 Creatinine 0.92 0.68 Estimat Glomerular Filtration 63 89 Rate Random Glucose 345 261 Calcium Level 8.9 8.9 C-Reactive Protein 15.60 Erythrocyte Sedimentation Rate 64 51 Total Creatine Kinase 68 Lactic Acid Level 1.1 Total Bilirubin 0.3 Aspartate Amino Transf 7 (AST/SGOT) Alanine Aminotransferase 22 (ALT/SGPT) Alkaline Phosphatase 64 Total Protein 7.7 Albumin 3.0 Triglycerides Level 141 Cholesterol Level 170 LDL Cholesterol 95 HDL Cholesterol 47.0 Cholesterol/HDL Ratio 3.61 Thyroid Stimulating Hormone 1.230 3rd Gen Date/Time Procedure Status Source Growth 01/21/17 22:05 Gram Stain - Final Resulted Wound Foot 01/21/17 22:05 Wound Culture - Preliminary Resulted Wound Foot HEAVY GROWTH NORMAL SKIN JANETH AT 24HRS 01/21/17 22:05 Aerobic Blood Culture - Preliminary Resulted Blood Peripheral NO GROWTH IN 1 DAY 01/21/17 22:05 Anaerobic Blood Culture - Preliminary Resulted Blood Peripheral NO GROWTH IN 1 DAY Result Diagram: 01/22/17 0952 01/22/17 0952 Imaging Last Impressions Foot MRI 01/22/17 0000 Signed Impressions: Service Date/Time: Sunday, January 22, 2017 12:25 - CONCLUSION: 1. Cutaneous ulceration of the great toe with severe surrounding cellulitis and central sinus tract or devitalized tissue. 2. No evidence of defined abscess or osteomyelitis. Favian Shabazz MD Foot X-Ray 01/21/172123 Signed Impressions: Service Date/Time: Saturday, January 21, 2017 21:37 - CONCLUSION: No radiographic evidence to suggest osteomyelitis. Kurt Geiger Jr., MD Assessment and Plan Assessment and Plan Abscess R foot To OR for I&D abscess R foot tomorrow morning NPO after midnight Likely will have wound vac postoperatively Susu Sahu DPM Jan 22, 2017 21:55
[2017-01-23] VITALS (7 sets, daily range): BP systolic 100–158; BP diastolic 58–75; PULSE 83–107; RESP 16–19; TEMP 97.6–100.4; O2SAT 94–98
[2017-01-23] MEDS: ACETAMINOPHEN/HYDROcodone 325 MG/7.5 MG TAB PO PRN ×2 (00:31→23:01)
[2017-01-23] MEDS: LEVOTHYROXINE SODIUM 100 MCG TAB PO SCH (05:56)
[2017-01-23] MEDS: CLINDAMYCIN INJ 600 MG in SODIUM CHLORIDE 0.9% INJ 100 ML IV SCH ×3 (05:57→23:00)
[2017-01-23] MEDS: INSULIN ASPART SUPPLEMENTAL SCALE SQ SCH ×4 (06:50→20:12)
[2017-01-23 07:01] LABS: BICARBONATE 25.5 MEQ/L (21.0-32.0); POTASSIUM 4.1 MEQ/L (3.5-5.1)
[2017-01-23] MEDS ORDERED: NEOMYCIN/POLYMYXIN 1 ML G.U. IRRIGANT IR ONE (08:07)
[2017-01-23] MEDS ORDERED: BUPIVACAINE HCL PF 0.5% 30 ML VIAL ONE (08:21)
[2017-01-23] MEDS ORDERED: MIDAZOLAM HCL 2 MG/2 ML VIAL ONE (08:53)
--- NOTE | 2017-01-23 08:56 | HHI.PR ---
Immediate Post Op Note Procedure Date: Jan 23, 2017 Pre Op Diagnosis: Abscess R foot Post Op Diagnosis: Same Surgeon: Susu Sahu DPM Toy Assembler(s): Staff Procedure: I&D abscess R foot, with wound vac Findings: Consistent with diagnosis. Necrotic tissue noted to plantar hallux/1st MTP joint area communicating to medial aspect of 1st MTP joint necrotic area. Culture taken of drainage. Once necrotic tissue removed, healthy bleeding base noted to residual wound. Wound approx. 6cm x 4cm x 0.7cm depth to plantar and medial 1st MTP joint area R foot. Wound vac applied and set at 125 mmHg medium continuous setting. Tues/Thurs/Sat vac changes ordered per nursing while in-house. Will need vac changes set up for home upon dc and recommend 4 weeks IV antibiotics Additional Information: n/a Complications: none Specimen(s) removed: culture R foot Estimated blood loss: 15mL Anesthesia: General, Local (20mL 0.5% marcaine plain) Drains: None IVF Tourniquet time (min at mmHg) n/a Patient to: PACU Patient Condition: Good Date/Time of Procedure: SEE SURGICAL CARE RECORD Susu Sahu DPM Jan 23, 2017 08:56
[2017-01-23] MEDS ORDERED: *morphine SULFATE 8 MG/ML PERIprocedure ONLY ONE (08:58)
[2017-01-23] MEDS: SODIUM CHLORIDE 0.9% FLUSH 10 ML FLUSH IV FLUSH SCH ×2 (09:00→19:57)
[2017-01-23] MEDS: buPROPion HCL 150 MG SUSTAINED RELEASE TAB PO SCH ×2 (09:39→19:55)
[2017-01-23] MEDS: LEVOFLOXACIN 750 MG TAB PO SCH (09:39)
[2017-01-23] MEDS: MULTIVITAMIN TAB PO SCH (09:39)
[2017-01-23] MEDS: LISINOPRIL 20 MG TAB PO SCH (09:39)
[2017-01-23] MEDS: CHOLECALCIFEROL (VIT D3) 5000 UNIT CAP PO SCH (09:45)
[2017-01-23] MEDS ORDERED: DO NOT ADM ANY ANTICOAGULANT DRUGS PRN (09:45)
--- NOTE | 2017-01-23 10:41 | HHI.FPPN ---
Subjective Remarks Patient seen and examined. Has just returned from OR with Podiatry this am. She is in good spirits. Glucose has been ranging 250-300 over last 24 hours per nursing. Has been afebrile Patient has just had morphine in OR and says pain is controlled currently. Denies chest pain, shortness of breath or nausea or vomiting. (Pooja Jalloh MD) Objective Vitals Vital Signs Date Time Temp Pulse Resp B/P Pulse Ox O2 Delivery O2 Flow Rate FiO2 01/23/17 09:48 97.7 83 16 110/69 95 01/23/17 09:15 80 14 101/62 98 Room Air 01/23/17 09:00 82 14 104/57 98 Room Air 01/23/17 08:47 98.0 86 14 96/51 96 01/23/17 07:05 98.6 87 16 158/69 97 01/23/17 04:00 98.7 97 19 142/67 98 01/23/17 01:33 18 01/23/17 00:00 98.8 98 18 140/75 97 01/22/17 20:00 99.0 99 18 161/74 98 01/22/17 16:00 96.8 97 16 162/87 100 01/22/17 12:00 97.0 90 16 137/68 97 I/O 01/22/17 01/22/17 01/22/17 01/23/17 01/23/17 01/23/17 07:00 15:00 23:00 07:00 15:00 23:00 Intake Total 480 ml 120 ml 240 ml 0 ml 450 ml Output Total 20 ml Balance 480 ml 120 ml 240 ml 0 ml 430 ml Intake Oral 480 ml 120 ml 240 ml 0 ml IV Total 150 ml Other 300 ml Output Estimated Blood Loss 20 ml # Voids 1 2 2 2 # Bowel Movements 0 0 0 (Pooja Jalloh MD) Result Diagram: 01/22/17 0952 01/23/17 0558 Imaging Last Impressions Foot MRI 01/22/17 0000 Signed Impressions: Service Date/Time: Sunday, January 22, 2017 12:25 - CONCLUSION: 1. Cutaneous ulceration of the great toe with severe surrounding cellulitis and central sinus tract or devitalized tissue. 2. No evidence of defined abscess or osteomyelitis. Favian Shabazz MD Foot X-Ray 01/21/172123 Signed Impressions: Service Date/Time: Saturday, January 21, 2017 21:37 - CONCLUSION: No radiographic evidence to suggest osteomyelitis. Kurt Geiger Jr., MD Objective Remarks GENERAL: Well-nourished, well-developed lying in bed in no acute distress SKIN: Warm and dry. CARDIOVASCULAR: Regular rate and rhythm without obvious murmurs, gallops, or rubs. RESPIRATORY: Clear to auscultation bilaterally with no wheezing, rhonchi or crackles. No increased work of breathing. GASTROINTESTINAL: Abdomen soft, non-tender, nondistended with positive bowel sounds. MUSCULOSKELETAL: No cyanosis or edema. Right foot is wrapped completely and with wound vac in place. NEURO/PSYCH: Awake and alert. Pleasant mood and affect. Does not appear anxious. (Pooja Jalloh MD) A/P Assessment and Plan Ms. Rosales is a 56 y/o F with a PMHx of T2DM, HTN, and depression/anxiety presenting with a R foot ulceration now s/p I & D abscess of foot with wound vac by with Podiatry on 01/23/17. Discharge Planning Unclear at this time. Per podiatry, will require arrangement for terminologist IV antibiotics for 4 weeks and wound vac changes (Pooja Jalloh MD) Attending Attestation Patient seen and examined. Case reviewed and discussed with the resident team. Agree with plan of care as discussed with me and documented in the resident note. (Steph Bowman MD) Problem List: (1) Diabetic foot ulcer Status: Acute Plan: Right foot ulceration at the head of the first metatarsal. CBC: WBC 17.9 with 79.2% neutrophils on admission, now resolved with white blood cell count of 10.3 CRP 15.6. ESR: 64. Lactic acid: 1.1 Osteomyelitis not present on x-ray ordered during podiatry evaluation during surgery today. Has been afebrile over past 24hrs Plan: * Podiatry consulted, appreciate assistance * Drainage of abscess with wound VAC placement on 01/23/17 by podiatry. Patient will require long-term antibiotics IV for 4 weeks, as well as wound VAC changes. * Wound cultures growing MRSA, gram-negative rods and anaerobic gram-negative rods * Consulted infectious disease, appreciate assistance * Currently with wound VAC. Per podiatry: Set at 125 mmHg medium continuous setting and Tues/Thurs/Sat vac changes ordered per nursing while in-house * Consulted case management, appreciate assistance. Patient will likely require home health care. * Blood cultures 2: No growth in 2 days * Tetanus/Diphtheria Booster given on 01/21 Antibiotics: * Clindamycin 600 mg IV every 8 hours (01/21- ) * Levofloxacin 750 mg by mouth daily (01/22- ) Pain control * Hydrocodone 5 mg for pain 1-5 every 4 hours, hydrocodone 7.5 mg for pain 6-10 every 4 hours, Toradol 30 mg every 6 hours when necessary for breakthrough pain * Acetaminophen 500 mg every 4 hours when necessary for fever * Mckenna-Colace 2 tabs daily at bedtime scheduled to prevent constipation (2) Diabetes mellitus type 2 in obese Status: Acute Plan: Patient with uncontrolled type 2 diabetes and without good control of glucose at home. Currently on glipizide 10 mg twice a day and metformin 1000 mg twice a day. Blood glucose running to [id number] overnight despite despite being nothing by mouth for procedure today. Required 15 units of sliding scale insulin over the last 24 hours. Plan: * Held home glipizide and metformin * Low dose Sliding scale insulin * Started Levemir 10 units daily at bedtime on 01/23. Anticipate increasing to Levemir 10 units twice a day tomorrow, and adding prandial insulin as well within the next 1-2 days * Consulted diabetic education (3) Hypertension Status: Acute Plan: Blood pressure 101/62 this a.m. Patient with history hypertension currently controlled on lisinopril. Plan: * Continue lisinopril 20 mg daily * Clonidine 0.1 mg every 6 hours when necessary for SBP greater than 180 or DBP greater than 100 (4) Hypothyroidism (acquired) Status: Chronic Plan: Currently on 100 g of levothyroxine daily. TSH normal at 1.23 Plan: * Continue levothyroxine 100 g daily (5) Dyslipidemia Status: Chronic Plan: Patient with history of dyslipidemia. Currently on lovastatin 20 mg daily, however has recently had cramping episodes which she believes could be related to her medication. Lipid panel normal: Triglycerides 141, cholesterol 170, LDL 95, HDL 47. Creatinine kinase normal at 68 Plan: * Holding home lovastatin (6) Depression Status: Chronic Plan: Patient with reported depression. Currently on bupropion 150 mg twice a day. Plan: * Continue bupropion 150 mg twice a day (7) Vitamin D insufficiency Status: Chronic Plan: Plan: * Continue home with vitamin D supplementation 5000 units daily (8) Nutrition, metabolism, and development symptoms Status: Acute Plan: * Fluids: SLIV, tolerating PO well * Diet: Diabetic heart healthy diet * Electrolytes: WNL, continue to monitor * Prophylaxis: (9) Surgical contraindication to deep vein thrombosis (DVT) prophylaxis Status: Acute Plan: * Held pharmacological therapy as patient was going to OR * Will start Lovenox 40 mg subcutaneous tomorrow, 24 hours after surgery * SCDs for now (Pooja Jalloh MD) Problem List: (1) Diabetic foot ulcer Status: Acute Plan: Right foot ulceration at the head of the first metatarsal. CBC: WBC 17.9 with 79.2% neutrophils on admission, now resolved with white blood cell count of 10.3 CRP 15.6. ESR: 64. Lactic acid: 1.1 Osteomyelitis not present on x-ray ordered during podiatry evaluation during surgery today. Has been afebrile over past 24hrs Plan: * Podiatry consulted, appreciate assistance * Drainage of abscess with wound VAC placement on 01/23/17 by podiatry. Patient will require long-term antibiotics IV for 4 weeks, as well as wound VAC changes. * Wound cultures growing MRSA, gram-negative rods and anaerobic gram-negative rods * Consulted infectious disease, appreciate assistance * Currently with wound VAC. Per podiatry: Set at 125 mmHg medium continuous setting and Tues/Thurs/Sat vac changes ordered per nursing while in-house * Consulted case management, appreciate assistance. Patient will likely require home health care. * Blood cultures 2: No growth in 2 days * Tetanus/Diphtheria Booster given on 01/21 Antibiotics: * Clindamycin 600 mg IV every 8 hours (01/21- ) * Levofloxacin 750 mg by mouth daily (01/22- ) Pain control * Hydrocodone 5 mg for pain 1-5 every 4 hours, hydrocodone 7.5 mg for pain 6-10 every 4 hours, Toradol 30 mg every 6 hours when necessary for breakthrough pain * Acetaminophen 500 mg every 4 hours when necessary for fever * Mckenna-Colace 2 tabs daily at bedtime scheduled to prevent constipation (2) Diabetes mellitus type 2 in obese Status: Acute Plan: Patient with uncontrolled type 2 diabetes and without good control of glucose at home. Currently on glipizide 10 mg twice a day and metformin 1000 mg twice a day. Blood glucose running to [id number] overnight despite despite being nothing by mouth for procedure today. Required 15 units of sliding scale insulin over the last 24 hours. Plan: * Held home glipizide and metformin * Low dose Sliding scale insulin * Started Levemir 10 units daily at bedtime on 01/23. Anticipate increasing to Levemir 10 units twice a day tomorrow, and adding prandial insulin as well within the next 1-2 days * Consulted diabetic education (3) Hypertension Status: Acute Plan: Blood pressure 101/62 this a.m. Patient with history hypertension currently controlled on lisinopril. Plan: * Continue lisinopril 20 mg daily * Clonidine 0.1 mg every 6 hours when necessary for SBP greater than 180 or DBP greater than 100 (4) Hypothyroidism (acquired) Status: Chronic Plan: Currently on 100 g of levothyroxine daily. TSH normal at 1.23 Plan: * Continue levothyroxine 100 g daily (5) Dyslipidemia Status: Chronic Plan: Patient with history of dyslipidemia. Currently on lovastatin 20 mg daily, however has recently had cramping episodes which she believes could be related to her medication. Lipid panel normal: Triglycerides 141, cholesterol 170, LDL 95, HDL 47. Creatinine kinase normal at 68 Plan: * Holding home lovastatin (6) Depression Status: Chronic Plan: Patient with reported depression. Currently on bupropion 150 mg twice a day. Plan: * Continue bupropion 150 mg twice a day (7) Vitamin D insufficiency Status: Chronic Plan: Plan: * Continue home with vitamin D supplementation 5000 units daily (8) Nutrition, metabolism, and development symptoms Status: Acute Plan: * Fluids: SLIV, tolerating PO well * Diet: Diabetic heart healthy diet * Electrolytes: WNL, continue to monitor * Prophylaxis: (9) Surgical contraindication to deep vein thrombosis (DVT) prophylaxis Status: Acute Plan: * Held pharmacological therapy as patient was going to OR * Will start Lovenox 40 mg subcutaneous tomorrow, 24 hours after surgery * SCDs for now (Steph Bowman MD) Problem Qualifiers (1) Diabetic foot ulcer: Qualified Code: E11.621 - Diabetic ulcer of toe of right foot associated with type 2 diabetes mellitus, with necrosis of muscle (2) Hypertension: Qualified Code: I10 - Essential hypertension (3) Depression: Qualified Code: F32.9 - Depression, unspecified depression type Pooja Jalloh MD Jan 23, 2017 10:41 Steph Bowmna MD Jan 23, 2017 15:19
[2017-01-23 11:12] LABS: AUTOMATED NEUTROPHIL # 7.5 TH/MM3 (1.8-7.7); BASOPHIL % 0.3 % (0.0-2.0); EOSINOPHIL # 0.1 TH/MM3 (0-0.4); EOSINOPHIL % 1.1 % (0.0-4.0); HEMATOCRIT 35.5 % (35.0-46.0); HEMO FLAGS DIFF FINAL; LYMPH % 19.1 % (9.0-44.0); MEAN CORPUSCULAR HEMOGLOBIN 28.9 PG (27.0-34.0); MEAN CORPUSCULAR HGB CONC 33.6 % (32.0-36.0); MONO % 6.5 % (0.0-8.0); PLATELET COUNT 281 TH/MM3 (150-450); RED BLOOD COUNT 4.13 MIL/MM3 (4.00-5.30); RED CELL DISTRIBUTION WIDTH 13.3 % (11.6-17.2); WHITE BLOOD COUNT 10.3 TH/MM3 (4.0-11.0)
[2017-01-23] MEDS ORDERED: ONDANSETRON HCL 4 MG/2 ML VIAL IV PUSH ONE (12:00)
[2017-01-23] MEDS ORDERED: PROPOFOL 200 MG/20 ML AMP IV ONE (12:00)
[2017-01-23] MEDS ORDERED: LACTATED RINGER'S 1000 ML INJ 1,000 ML IV ONE (12:00)
[2017-01-23] MEDS ORDERED: diphenhydrAMINE HCL 25 MG CAP PO PRN (15:00)
[2017-01-23] MEDS: DOCUSATE SODIUM 50 MG/SENNA 8.6 MG TAB PO SCH (19:55)
[2017-01-23] MEDS ORDERED: INSULIN DETEMIR 100 UNITS/ML VIAL SQ SCH (21:00)
[2017-01-24] VITALS: BP 139/64; PULSE 94; RESP 18; TEMP 97.6; O2SAT 96
[2017-01-24 06:00] VITALS: BP 127/72; PULSE 82; RESP 16; TEMP 97.2; O2SAT 100
[2017-01-24] MEDS: LEVOTHYROXINE SODIUM 100 MCG TAB PO SCH (06:10)
[2017-01-24] MEDS: CLINDAMYCIN INJ 600 MG in SODIUM CHLORIDE 0.9% INJ 100 ML IV SCH ×3 (06:10→21:52)
[2017-01-24] MEDS: INSULIN ASPART SUPPLEMENTAL SCALE SQ SCH ×4 (06:22→21:48)
[2017-01-24 06:50] LABS: HEMATOCRIT 37.7 % (35.0-46.0); MEAN CORPUSCULAR HEMOGLOBIN 29.1 PG (27.0-34.0); MEAN CORPUSCULAR HGB CONC 33.8 % (32.0-36.0); PLATELET COUNT 318 TH/MM3 (150-450); RED BLOOD COUNT 4.38 MIL/MM3 (4.00-5.30); RED CELL DISTRIBUTION WIDTH 13.2 % (11.6-17.2); REVIEW FLAG FINAL; WHITE BLOOD COUNT 10.3 TH/MM3 (4.0-11.0)
[2017-01-24 07:15] LABS: BICARBONATE 27.9 MEQ/L (21.0-32.0)
[2017-01-24 08:05] VITALS: BP 128/82; PULSE 84; RESP 18; TEMP 99.2; O2SAT 98
[2017-01-24] MEDS: buPROPion HCL 150 MG SUSTAINED RELEASE TAB PO SCH ×2 (08:42→21:51)
[2017-01-24] MEDS: CHOLECALCIFEROL (VIT D3) 5000 UNIT CAP PO SCH (08:42)
[2017-01-24] MEDS: LEVOFLOXACIN 750 MG TAB PO SCH (08:42)
[2017-01-24] MEDS: LISINOPRIL 20 MG TAB PO SCH (08:42)
[2017-01-24] MEDS: MULTIVITAMIN TAB PO SCH (08:42)
[2017-01-24] MEDS: SODIUM CHLORIDE 0.9% FLUSH 10 ML FLUSH IV FLUSH SCH ×2 (08:43→21:52)
[2017-01-24] MEDS: ACETAMINOPHEN/HYDROcodone 325 MG/7.5 MG TAB PO PRN ×3 (08:45→21:51)
--- NOTE | 2017-01-24 09:28 | PD.ID.CON ---
History of Present Illness Consult Requested By Primary Care Physician Stpeh Bowman MD Diagnoses: Past Family Social History Allergies: Coded Allergies: *MDRO Multi-Drug Resistant Organism (Verified Adverse Reaction, Unknown, MRSA, 01/24/17) MRSA (wound) - 01/21/17 Physical Exam Vital Signs Vital Signs Date Time Temp Pulse Resp B/P Pulse Ox O2 Delivery O2 Flow Rate FiO2 01/24/17 06:00 97.2 82 16 127/72 100 01/24/17 00:00 97.6 94 18 139/64 96 01/23/17 20:00 100.4 100 18 134/74 96 01/23/17 16:00 98.3 107 16 125/67 96 01/23/17 12:00 97.6 84 16 100/58 94 01/23/17 09:48 97.7 83 16 110/69 95 Physical Exam GENERAL: This is a well-nourished, well-developed patient, in no apparent distress. SKIN: No rashes, ecchymoses or lesions. Cool and dry. HEAD: Atraumatic. Normocephalic. No temporal or scalp tenderness. EYES: Pupils equal round and reactive. Extraocular motions intact. No scleral icterus. No injection or drainage. ENT: Nose without bleeding, purulent drainage or septal hematoma. Throat without erythema, tonsillar hypertrophy or exudate. Uvula midline. Airway patent. NECK: Trachea midline. No JVD or lymphadenopathy. Supple, nontender, no meningeal signs. CARDIOVASCULAR: Regular rate and rhythm without murmurs, gallops, or rubs. RESPIRATORY: Clear to auscultation. Breath sounds equal bilaterally. No wheezes , rales, or rhonchi. GASTROINTESTINAL: Abdomen soft, non-tender, nondistended. No hepato-splenomegaly , or palpable masses. No guarding. MUSCULOSKELETAL: Extremities without clubbing, cyanosis, or edema. No joint tenderness, effusion, or edema noted. No calf tenderness. Negative Homans sign bilaterally. NEUROLOGICAL: Awake and alert. Cranial nerves II through XII intact. Motor and sensory grossly within normal limits. Five out of 5 muscle strength in all muscle groups. Normal speech. Laboratory Laboratory Tests Test 01/23/17 01/24/17 10:52 05:40 White Blood Count 10.3 10.3 Red Blood Count 4.13 4.38 Hemoglobin 11.9 12.7 Hematocrit 35.5 37.7 Mean Corpuscular Volume 86.0 86.0 Mean Corpuscular Hemoglobin 28.9 29.1 Mean Corpuscular Hemoglobin 33.6 33.8 Concent Red Cell Distribution Width 13.3 13.2 Platelet Count 281 318 Mean Platelet Volume 7.3 7.9 Neutrophils (%) (Auto) 73.0 Lymphocytes (%) (Auto) 19.1 Monocytes (%) (Auto) 6.5 Eosinophils (%) (Auto) 1.1 Basophils (%) (Auto) 0.3 Neutrophils # (Auto) 7.5 Lymphocytes # (Auto) 2.0 Monocytes # (Auto) 0.7 Eosinophils # (Auto) 0.1 Basophils # (Auto) 0.0 CBC Comment DIFF FINAL Differential Comment Sodium Level 134 Potassium Level 4.0 Chloride Level 97 Carbon Dioxide Level 27.9 Anion Gap 9 Blood Urea Nitrogen 15 Creatinine 0.79 Estimat Glomerular Filtration 75 Rate Random Glucose 249 Calcium Level 9.1 Date/Time Procedure Status Source Growth 01/23/17 08:22 Gram Stain - Final Resulted Wound Foot 01/23/17 08:22 Wound Culture Resulted Wound Foot Pending 01/23/17 08:22 Fungal Smear - Final Resulted Wound Foot NO FUNGAL ELEMENTS SEEN. 01/23/17 08:22 Fungal Culture Resulted Wound Foot Pending 01/23/17 08:22 Acid Fast Stain Received Wound Foot Pending 01/23/17 08:22 Mycobacterial Culture Received Wound Foot Pending 01/21/17 22:05 Aerobic Blood Culture - Preliminary Resulted Blood Peripheral NO GROWTH IN 2 DAYS 01/21/17 22:05 Anaerobic Blood Culture - Preliminary Resulted Blood Peripheral NO GROWTH IN 2 DAYS Result Diagram: 01/24/17 0540 01/24/17 0540 Joseline Jimenez MD Jan 24, 2017 09:28
--- NOTE | 2017-01-24 09:45 | PD.ID.CON ---
History of Present Illness Service ID Consult Requested By residents/. Reason for Consult Evaluation and Mment of Infected diabetic foot abscess/ulcer. Primary Care Physician Steph Bowman MD Diagnoses: History of Present Illness Ms. Rosales is a 56 y/o F with a PMHx of DM2 uncontrolled with neuropathy (does not reports nephropathy or any visual problems), HTN, and depression/anxiety presenting with a R foot ulceration. Her PMhx is also significant for left foot 5th toe blister treated as MRSA with Clindamycin oral. She reports she has had calluses that she has been "nursing by herself" at home and has not seen any MD or propulsion systems engineer for any foot problems so far. She also reports having some skin eruptions on her face area and scalp and she thinks clinda has helped her with those issues as well. 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 She has been having pain at the callus site but has been toughing it out and working despite the pain. With this background patient She reports that this ulceration started 3 weeks ago under a callus formation on the ball of her foot. When the callus bust open and she could see a track she decided to come to ED. She endorses anorexia, nausea, fevers, myalgias, and diaphoresis over the last 24 hours. She now agrees to go to see a propulsion systems engineer on a regular basis. ID is consulted for evaluation and Mment of Infected Diabetic foot abscess/ ulcer. Review of Systems Constitutional: DENIES: Diaphoretic episodes, Fatigue, Fever, Weight gain, Weight loss, Chills, Dizziness, Change in appetite, Night Sweats Endocrine: DENIES: Abnorml menstrual pattern, Heat/cold intolerance, Polydipsia , Polyuria, Polyphagia Eyes: DENIES: Blurred vision, Diplopia, Eye inflammation, Eye pain, Vision loss , Photosensitivity, Double Vision Ears, nose, mouth, throat: DENIES: Tinnitus, Hearing loss, Vertigo, Nasal discharge, Oral lesions, Throat pain, Hoarseness, Ear Pain, Running Nose, Epistaxis, Sinus Pain, Toothache, Odynophagia Respiratory: DENIES: Apneas, Cough, Snoring, Wheezing, Hemoptysis, Sputum production, Shortness of breath Cardiovascular: DENIES: Chest pain, Palpitations, Syncope, Dyspnea on Exertion , PND, Lower Extremity Edema, Orthopnea, Claudication Gastrointestinal: DENIES: Abdominal pain, Black stools, Bloody stools, Constipation, Diarrhea, Nausea, Vomiting, Difficulty Swallowing, Anorexia Genitourinary: DENIES: Abnormal vaginal bleeding, Dysmenorrhea, Dyspareunia, Sexual dysfunction, Urinary frequency, Urinary incontinence, Urgency, Hematuria , Dysuria, Nocturia, Vaginal discharge Musculoskeletal: COMPLAINS OF: Joint pain, Joint Swelling, DENIES: Muscle aches, Stiffness, Back pain, Neck pain Integumentary: COMPLAINS OF: Abnormal pigmentation, DENIES: Pruritus, Rash, Nail changes, Breast masses, Breast skin changes, Nipple discharge Hematologic/lymphatic: DENIES: Bruising, Lymphadenopathy Immunologic/allergic: DENIES: Eczema, Urticaria Neurologic: COMPLAINS OF: Paresthesias, DENIES: Abnormal gait, Headache, Localized weakness, Seizures, Speech Problems, Tremor, Poor Balance Psychiatric: DENIES: Anxiety, Confusion, Mood changes, Depression, Hallucinations, Agitation, Suicidal Ideation, Homicidal Ideation, Delusions Except as stated in HPI: all other systems reviewed are Neg Past Family Social History Allergies: Coded Allergies: *MDRO Multi-Drug Resistant Organism (Verified Adverse Reaction, Unknown, MRSA, 01/24/17) MRSA (wound) - 01/21/17 Past Medical History Hypertension Type 2 diabetes Hypothyroidism - has not been taking her medication Hyperlipidemia. Overdose in a suicide attempt at age 11 because of incest Left wrist fracture age 9 Frozen shoulder on the left resolved with physical therapy and swimming Past Surgical History Bilateral cataracts 2010 Cosmetic surgery left cheek. I&D of abscess 01/23/2017. Reported Medications Reported Meds & Active Scripts Active Lisinopril 20 Mg Tab 20 Mg PO DAILY Jeffry Contour Next Blood Test Strips (Blood Glucose Test Strips) 1 Katelyn Katelyn 1 Strip BID Lovastatin 20 Mg Tab 20 Mg PO DAILY Levothyroxine (Levothyroxine Sodium) 100 Mcg Tab 100 Mcg PO DAILY Glipizide 10 Mg Tab 10 Mg PO BIDAC Take 30 minutes before a meal [contour next test] Strips BID [glucose test strips] 1 Strips BID [contour next lancets] 1 QID [glucose meter] QID Contour Next Blood Glucose Meter [Glucometer] 1 QID check glucose qid ac and hs, keep log. Include lancets, wipes. Reported Multiple Vitamin 1 Tab 1 Tab PO DAILY Ibuprofen 200 Mg Cap 200 Mg PO Q6H PRN Glucophage XR (Metformin HCl) 500 Mg Crissy 1,000 Mg PO TWICE A DAY With evening meal Vitamin D3 (Cholecalciferol) 5,000 Unit Tab 5,000 Units PO DAILY Active Ordered Medications Current Medications Medications (Trade) Dose Ordered Sig/Gary Route Start Time Stop Time Status Last Admin (Vitamin D3) 5,000 units DAILY PO 01/22/17 09:00 01/24/17 08:42 (Synthroid) 100 mcg DAILY@0600 PO 01/22/17 06:00 01/24/17 06:10 (Prinivil) 20 mg DAILY PO 01/22/17 09:00 01/24/17 08:42 (Theragran) 1 tab DAILY PO 01/22/17 09:00 01/24/17 08:42 (NS Flush) 2 ml BID IV FLUSH 01/22/17 09:00 01/24/17 08:43 (NS Flush) 2 ml UNSCH PRN IV FLUSH 01/22/17 00:00 (Tylenol) 500 mg Q4H PRN PO 01/22/17 00:00 (Alger 5-325 Mg) 1 tab Q4H PRN PO 01/22/17 00:00 (Alger 7.5-325 Mg) 1 tab Q4H PRN PO 01/22/17 00:00 01/24/17 08:45 Ketorolac Tromethamine 30 mg 30 mg Q6H PRN IVP 01/22/17 00:00 01/27/17 00:00 (Cleocin Inj/NS Inj) 104 ml @ 208 mls/hr Q8H IV 01/22/17 06:00 01/24/17 06:10 (Levaquin) 750 mg DAILY PO 01/22/17 09:00 01/24/17 08:42 (Wellbutrin Sr) 150 mg BID PO 01/22/17 09:00 01/24/17 08:42 (D50w (Vial) Inj) 50 ml UNSCH PRN IV 01/22/17 00:30 (Glucagon Inj) 1 mg UNSCH PRN OTHER 01/22/17 00:30 (Catapres) 0.1 mg Q6H PRN PO 01/22/17 00:30 (Zofran Inj) 4 mg Q6HR PRN IV PUSH 01/22/17 02:15 01/22/17 09:50 (Mckenna-Colace) 2 tab HS PO 01/23/17 21:00 01/23/17 19:55 (Levemir Inj) 10 units HS SQ 01/23/17 21:00 01/23/17 20:00 Miscellaneous Information ALL NURSING DEPARTME... UNSCH PRN .XX 01/23/17 09:45 01/24/17 09:44 (Lovenox Inj) 40 mg Q24H SQ 01/24/17 16:00 (Benadryl) 25 mg Q4H PRN PO 01/23/17 15:00 01/23/17 15:40 Family History Father at age 83 of emphysema, he also had type 2 diabetes and multiple cardiac caths. He was on hospice Mother living at 85 with elevated cholesterol and depression Brother age 57 with bipolar disorder from whom she is estranged Brother age 51 with hypertension, probably alcoholic Social History She is . 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 Occasional alcohol Smoked socially in college over 30 years ago Denies illicit drug use Physical Exam Vital Signs Vital Signs Date Time Temp Pulse Resp B/P Pulse Ox O2 Delivery O2 Flow Rate FiO2 01/24/17 06:00 97.2 82 16 127/72 100 01/24/17 00:00 97.6 94 18 139/64 96 01/23/17 20:00 100.4 100 18 134/74 96 01/23/17 16:00 98.3 107 16 125/67 96 01/23/17 12:00 97.6 84 16 100/58 94 01/23/17 09:48 97.7 83 16 110/69 95 Physical Exam GENERAL: Obese, well-developed patient, in no apparent distress. SKIN: No rashes, ecchymoses or lesions. Cool and dry. HEAD: Atraumatic. Normocephalic. No temporal or scalp tenderness. EYES: Pupils equal round and reactive. Extraocular motions intact. No scleral icterus. No injection or drainage. ENT: Nose without bleeding, purulent drainage or septal hematoma. Throat without erythema, tonsillar hypertrophy or exudate. Uvula midline. Airway patent. NECK: Trachea midline. Supple, nontender, no meningeal signs. CARDIOVASCULAR: RRR. RESPIRATORY: Clear to auscultation. Breath sounds equal bilaterally. No wheezes , rales, or rhonchi. GASTROINTESTINAL: Abdomen soft, non-tender, nondistended. MUSCULOSKELETAL: Right foot wound vac. NEUROLOGICAL: Awake and alert. Grossly non focal Psych: cooperative IV line sites with no e/o infection. Laboratory Laboratory Tests Test 01/23/17 01/24/17 10:52 05:40 White Blood Count 10.3 10.3 Red Blood Count 4.13 4.38 Hemoglobin 11.9 12.7 Hematocrit 35.5 37.7 Mean Corpuscular Volume 86.0 86.0 Mean Corpuscular Hemoglobin 28.9 29.1 Mean Corpuscular Hemoglobin 33.6 33.8 Concent Red Cell Distribution Width 13.3 13.2 Platelet Count 281 318 Mean Platelet Volume 7.3 7.9 Neutrophils (%) (Auto) 73.0 Lymphocytes (%) (Auto) 19.1 Monocytes (%) (Auto) 6.5 Eosinophils (%) (Auto) 1.1 Basophils (%) (Auto) 0.3 Neutrophils # (Auto) 7.5 Lymphocytes # (Auto) 2.0 Monocytes # (Auto) 0.7 Eosinophils # (Auto) 0.1 Basophils # (Auto) 0.0 CBC Comment DIFF FINAL Differential Comment Sodium Level 134 Potassium Level 4.0 Chloride Level 97 Carbon Dioxide Level 27.9 Anion Gap 9 Blood Urea Nitrogen 15 Creatinine 0.79 Estimat Glomerular Filtration 75 Rate Random Glucose 249 Calcium Level 9.1 Date/Time Procedure Status Source Growth 01/23/17 08:22 Gram Stain - Final Resulted Wound Foot 01/23/17 08:22 Wound Culture Resulted Wound Foot Pending 01/23/17 08:22 Fungal Smear - Final Resulted Wound Foot NO FUNGAL ELEMENTS SEEN. 01/23/17 08:22 Fungal Culture Resulted Wound Foot Pending 01/23/17 08:22 Acid Fast Stain Received Wound Foot Pending 01/23/17 08:22 Mycobacterial Culture Received Wound Foot Pending 01/21/17 22:05 Aerobic Blood Culture - Preliminary Resulted Blood Peripheral NO GROWTH IN 2 DAYS 01/21/17 22:05 Anaerobic Blood Culture - Preliminary Resulted Blood Peripheral NO GROWTH IN 2 DAYS Result Diagram: 01/24/17 0540 01/24/17 0540 Imaging Last Impressions Foot MRI 01/22/17 0000 Signed Impressions: Service Date/Time: Sunday, January 22, 2017 12:25 - CONCLUSION: 1. Cutaneous ulceration of the great toe with severe surrounding cellulitis and central sinus tract or devitalized tissue. 2. No evidence of defined abscess or osteomyelitis. Favian Shabazz MD Foot X-Ray 01/21/174 Signed Impressions: Service Date/Time: Saturday, January 21, 2017 21:37 - CONCLUSION: No radiographic evidence to suggest osteomyelitis. Kurt Geiger Jr., MD Assessment and Plan Assessment and Plan Sepsis present on admission (leucocytosis, tachycardia, source of infection: foot) Right foot abscess/ulcer s/p I&D MRSA, gram negative anaerobic bacteria infection (preop cultures) DM2 uncontrolled DM with neuropathy. Recs: Continue Clinda IV for now. Based on review of intraoperative note: this appears to be an abscess. Will solomon Walker extent/depth of infection Also will follow intraoperative cultures to help guide final choice of antibiotics. Prior Clinda use in recent past. At risk for Cdiff. Would like to construct a regimen without clindamycin if possible. Follow cultures Follow clinically. d/w pt and RN for pt. Joseline Jimenez MD Jan 24, 2017 09:45 Joseline Jimenez MD Jan 24, 2017 09:45
[2017-01-24 12:00] VITALS: BP 129/94; PULSE 82; RESP 18; TEMP 97.6; O2SAT 98
[2017-01-24] MEDS: INSULIN DETEMIR 100 UNITS/ML VIAL SQ SCH ×2 (14:20→21:49)
--- NOTE | 2017-01-24 15:00 | HHI.FPPN ---
Subjective Remarks No acute events. She is POD #1 after I&D and wound vac placement on right foot. The wound vac container has sanguineous fluid about 100-200 ml. Pain is well controlled with medications. No nausea or vomiting. No bowel movement. Getting 2 tabs mckenna-colace at night. No abdominal pain. (Félix Buenrostro MD R2) Objective Vitals Vital Signs Date Time Temp Pulse Resp B/P Pulse Ox O2 Delivery O2 Flow Rate FiO2 01/24/17 08:05 99.2 84 18 128/82 98 01/24/17 06:00 97.2 82 16 127/72 100 01/24/17 00:00 97.6 94 18 139/64 96 01/23/17 20:00 100.4 100 18 134/74 96 01/23/17 16:00 98.3 107 16 125/67 96 I/O 01/23/17 01/23/17 01/23/17 01/24/17 01/24/17 01/24/17 07:00 15:00 23:00 07:00 15:00 23:00 Intake Total 0 ml 1050 ml 150 ml 480 ml Output Total 20 ml Balance 0 ml 1030 ml 150 ml 480 ml Intake Oral 0 ml 600 ml 480 ml IV Total 150 ml 150 ml Other 300 ml Output Estimated Blood Loss 20 ml # Voids 2 2 3 # Bowel Movements 0 0 (Félix Buenrostro MD R2) Result Diagram: 01/24/17 0540 01/24/17 0540 Imaging Last 72 hours Impressions Foot MRI 01/22/17 0000 Signed Impressions: Service Date/Time: Sunday, January 22, 2017 12:25 - CONCLUSION: 1. Cutaneous ulceration of the great toe with severe surrounding cellulitis and central sinus tract or devitalized tissue. 2. No evidence of defined abscess or osteomyelitis. Favian Shabazz MD Foot X-Ray 01/21/172123 Signed Impressions: Service Date/Time: Saturday, January 21, 2017 21:37 - CONCLUSION: No radiographic evidence to suggest osteomyelitis. Kurt Geiger Jr., MD Objective Remarks GENERAL: No distress, lying in bed, wound vac in place SKIN: Affected area is wrapped with wound-vac in place, sanguineous fluid drainage small amount CARDIOVASCULAR: Regular rate and rhythm without obvious murmurs, gallops, or rubs. RESPIRATORY: Clear to auscultation bilaterally with no wheezing, rhonchi or crackles. No increased work of breathing. GASTROINTESTINAL: Abdomen soft, non-tender, nondistended with positive bowel sounds. MUSCULOSKELETAL: No cyanosis or edema. NEURO/PSYCH: Awake and alert. Pleasant mood and affect. Does not appear anxious. Normal sensation to light touch in toes. (Félix Buenrostro MD R2) A/P Assessment and Plan Ms. Rosales is a 56 y/o F with a PMHx of T2DM, HTN, and depression/anxiety presenting with a R foot ulceration now s/p I & D abscess of foot with wound vac by Podiatry on 01/23/17. Discharge Planning Unclear at this time. Per podiatry, will require arrangement for snf IV antibiotics for 4 weeks and wound vac changes (Félix Buenrostro MD R2) Attending Attestation Patient seen and examined. Case reviewed and discussed with the resident team. Agree with plan of care as discussed with me and documented in the resident note. (Steph Bowman MD) Problem List: (1) Diabetic foot ulcer Status: Acute Plan: Right foot ulceration at the head of the first metatarsal. Leukocytosis resolved. 100.4 temperature overnight, now normal temperatures. Osteomyelitis not present on MRI. * Podiatry consulted, appreciate assistance * Drainage of abscess with wound VAC placement on 01/23/17 by podiatry. Patient will require long-term antibiotics IV for 4 weeks, as well as wound VAC changes. * Wound cultures growing MRSA, gram-negative rods and anaerobic gram-negative rods. Definitive culture from surgical specimen pending. * Consulted infectious disease, appreciate assistance. * Currently with wound VAC. Per podiatry: Set at 125 mmHg medium continuous setting and Tues/Thurs/Sat vac changes ordered per nursing while in-house * Consulted case management, appreciate assistance. Patient will likely require home health care. * Blood cultures 2: No growth in 3 days * Tetanus/Diphtheria Booster given on 01/21 Antibiotics: * Clindamycin 600 mg IV every 8 hours (01/21- ) * Levofloxacin 750 mg by mouth daily (01/22- ) * Adjust according to surgical specimen and ID recs Pain control * Hydrocodone 5 mg for pain 1-5 every 4 hours, hydrocodone 7.5 mg for pain 6-10 every 4 hours, Toradol 30 mg every 6 hours when necessary for breakthrough pain * Acetaminophen 500 mg every 4 hours when necessary for fever * Mckenna-Colace 2 tabs daily at bedtime scheduled to prevent constipation (2) Diabetes mellitus type 2 in obese Status: Acute Plan: Elevated blood glucoses likely due to infectious process. * Held home glipizide and metformin * Low dose Sliding scale insulin * Increased Levemir to 10 units bid * Consulted diabetic education (3) Hypertension Status: Acute Plan: * Continue lisinopril 20 mg daily * Clonidine 0.1 mg every 6 hours when necessary for SBP greater than 180 or DBP greater than 100 (4) Hypothyroidism (acquired) Status: Chronic Plan: Currently on 100 g of levothyroxine daily. TSH normal at 1.23 Plan: * Continue levothyroxine 100 g daily (5) Dyslipidemia Status: Chronic Plan: Patient with history of dyslipidemia. Currently on lovastatin 20 mg daily, however has recently had cramping episodes which she believes could be related to her medication. Lipid panel normal: Triglycerides 141, cholesterol 170, LDL 95, HDL 47. Creatinine kinase normal at 68 Plan: * Holding home lovastatin (6) Depression Status: Chronic Plan: Patient with reported depression. Currently on bupropion 150 mg twice a day. Plan: * Continue bupropion 150 mg twice a day (7) Vitamin D insufficiency Status: Chronic Plan: Plan: * Continue home with vitamin D supplementation 5000 units daily (8) Nutrition, metabolism, and development symptoms Status: Acute Plan: * Fluids: SLIV, tolerating PO well * Diet: Diabetic heart healthy diet * Electrolytes: WNL, continue to monitor * Prophylaxis: (9) No contraindication to deep vein thrombosis (DVT) prophylaxis Status: Acute Plan: * Resumed Lovenox post-op (Félix Buenrostro MD R2) Problem Qualifiers (1) Diabetic foot ulcer: Qualified Code: E11.621 - Diabetic ulcer of toe of right foot associated with type 2 diabetes mellitus, with necrosis of muscle (2) Hypertension: Qualified Code: I10 - Essential hypertension (3) Depression: Qualified Code: F32.9 - Depression, unspecified depression type Félix Buenrostro MD R2 Jan 24, 2017 15:00 Steph Bowman MD Jan 24, 2017 15:10
[2017-01-24 16:00] VITALS: BP 133/82; PULSE 82; RESP 18; TEMP 98.2; O2SAT 98
[2017-01-24] MEDS: ENOXAPARIN SODIUM 40 MG/0.4 ML SYRINGE SQ SCH (16:06)
[2017-01-24 21:08] VITALS: BP 136/81; PULSE 82; RESP 20; TEMP 97.6; O2SAT 98
[2017-01-24] MEDS: DOCUSATE SODIUM 50 MG/SENNA 8.6 MG TAB PO SCH (21:51)
[2017-01-25 05:25] VITALS: BP 119/62; PULSE 78; RESP 18; TEMP 96.4; O2SAT 96
[2017-01-25] MEDS: CLINDAMYCIN INJ 600 MG in SODIUM CHLORIDE 0.9% INJ 100 ML IV SCH ×3 (05:41→21:15)
[2017-01-25] MEDS: LEVOTHYROXINE SODIUM 100 MCG TAB PO SCH (05:41)
[2017-01-25] MEDS: INSULIN ASPART SUPPLEMENTAL SCALE SQ SCH ×4 (05:44→21:13)
[2017-01-25 07:06] LABS: AUTOMATED NEUTROPHIL # 3.9 TH/MM3 (1.8-7.7); BASOPHIL # 0.1 TH/MM3 (0-0.2); EOSINOPHIL # 0.2 TH/MM3 (0-0.4); EOSINOPHIL % 2.5 % (0.0-4.0); HEMATOCRIT 36.7 % (35.0-46.0); HEMO FLAGS DIFF FINAL; LYMPHOCYTE # 2.8 TH/MM3 (1.0-4.8); MEAN CELL VOLUME 85.7 FL (80.0-100.0); MEAN CORPUSCULAR HEMOGLOBIN 28.3 PG (27.0-34.0); MONO % 9.4 % (0.0-8.0); NEUT % 51.1 % (16.0-70.0); PLATELET COUNT 327 TH/MM3 (150-450); RED BLOOD COUNT 4.28 MIL/MM3 (4.00-5.30); RED CELL DISTRIBUTION WIDTH 13.2 % (11.6-17.2); WHITE BLOOD COUNT 7.7 TH/MM3 (4.0-11.0)
[2017-01-25 07:35] LABS: BICARBONATE 28.7 MEQ/L (21.0-32.0); POTASSIUM 3.5 MEQ/L (3.5-5.1)
[2017-01-25 08:05] VITALS: BP 129/72; PULSE 89; RESP 16; TEMP 97; O2SAT 97
[2017-01-25] MEDS ORDERED: POTASSIUM CHLORIDE 20 MEQ CONTROLLED RELEASE TAB PO ONE (09:00)
--- NOTE | 2017-01-25 09:08 | HHI.FPPN ---
Subjective Remarks Patient seen and examined this morning. No acute events overnight with vital signs WNL. (Hector Rodríguez MD R1) Objective Vitals Vital Signs Date Time Temp Pulse Resp B/P Pulse Ox O2 Delivery O2 Flow Rate FiO2 01/25/17 08:05 97.0 89 16 129/72 97 01/25/17 05:25 96.4 78 18 119/62 96 01/24/17 23:07 16 01/24/17 21:08 97.6 82 20 136/81 98 01/24/17 16:00 98.2 82 18 133/82 98 01/24/17 12:00 97.6 82 18 129/94 98 I/O 01/24/17 01/24/17 01/24/17 01/25/17 01/25/17 01/25/17 07:00 15:00 23:00 07:00 15:00 23:00 Intake Total 480 ml 960 ml Balance 480 ml 960 ml Intake Oral 480 ml 960 ml # Voids 3 4 (Hector Rodríguez MD R1) Result Diagram: 01/25/17 0604 01/25/17 0604 Objective Remarks GENERAL: No distress, lying in bed, wound vac in place SKIN: Affected area is wrapped with wound-vac in place, sanguineous fluid drainage small amount CARDIOVASCULAR: Regular rate and rhythm without obvious murmurs, gallops, or rubs. RESPIRATORY: Clear to auscultation bilaterally with no wheezing, rhonchi or crackles. No increased work of breathing. GASTROINTESTINAL: Abdomen soft, non-tender, nondistended with positive bowel sounds. MUSCULOSKELETAL: No cyanosis or edema. NEURO/PSYCH: Awake and alert. Pleasant mood and affect. Does not appear anxious. Normal sensation to light touch in toes. (Hector Rodríguez MD R1) A/P Assessment and Plan Ms. Rosales is a 56 y/o F with a PMHx of T2DM, HTN, and depression/anxiety presenting with a R foot ulceration now s/p I & D abscess of foot with wound vac by Podiatry on 01/23/17. Discharge Planning Unclear at this time. Per podiatry, will require arrangement for tank terminal gauger IV antibiotics for 4 weeks and wound vac changes (Hector Rodríguez MD R1) Attending Attestation Patient seen and examined. Case reviewed and discussed with the resident team. Agree with plan of care as discussed with me and documented in the resident note. (Steph Bowman MD) Problem List: (1) Diabetic foot ulcer Status: Acute Plan: Right foot ulceration at the head of the first metatarsal. Leukocytosis resolved. 100.4 temperature overnight, now normal temperatures. Osteomyelitis not present on MRI. * Podiatry consulted, appreciate assistance * Drainage of abscess with wound VAC placement on 01/23/17 by podiatry. Patient will require long-term antibiotics IV for 4 weeks, as well as wound VAC changes. * Initial Wound cultures growing MRSA, gram-negative rods and anaerobic gram- negative rods. * Definitive culture from surgical specimen growing gram positive cocci with final culture pending. * Consulted infectious disease, appreciate assistance. * Currently with wound VAC. Per podiatry: Set at 125 mmHg medium continuous setting and Tues/Thurs/Sat vac changes ordered per nursing while in-house * Consulted case management, appreciate assistance. Patient will likely require home health care. * Blood cultures 2: No growth in 3 days * Tetanus/Diphtheria Booster given on 01/21 Antibiotics: * Clindamycin 600 mg IV every 8 hours (01/21- ) * Levofloxacin 750 mg by mouth daily (01/22- ) * Adjust according to surgical specimen and ID recs Pain control * Hydrocodone 5 mg for pain 1-5 every 4 hours, hydrocodone 7.5 mg for pain 6-10 every 4 hours, Toradol 30 mg every 6 hours when necessary for breakthrough pain * Acetaminophen 500 mg every 4 hours when necessary for fever * Mckenna-Colace 2 tabs daily at bedtime scheduled to prevent constipation (2) Diabetes mellitus type 2 in obese Status: Acute Plan: Elevated blood glucoses likely due to infectious process. * Held home glipizide and metformin * Low dose Sliding scale insulin * Increased Levemir to 10 units bid * Consulted diabetic education (3) Hypertension Status: Acute Plan: * Continue lisinopril 20 mg daily * Clonidine 0.1 mg every 6 hours when necessary for SBP greater than 180 or DBP greater than 100 (4) Hypothyroidism (acquired) Status: Chronic Plan: Currently on 100 g of levothyroxine daily. TSH normal at 1.23 Plan: * Continue levothyroxine 100 g daily (5) Dyslipidemia Status: Chronic Plan: Patient with history of dyslipidemia. Currently on lovastatin 20 mg daily, however has recently had cramping episodes which she believes could be related to her medication. Lipid panel normal: Triglycerides 141, cholesterol 170, LDL 95, HDL 47. Creatinine kinase normal at 68 Plan: * Holding home lovastatin (6) Depression Status: Chronic Plan: Patient with reported depression. Currently on bupropion 150 mg twice a day. Plan: * Continue bupropion 150 mg twice a day (7) Vitamin D insufficiency Status: Chronic Plan: Plan: * Continue home with vitamin D supplementation 5000 units daily (8) Nutrition, metabolism, and development symptoms Status: Acute Plan: * Fluids: SLIV, tolerating PO well * Diet: Diabetic heart healthy diet * Electrolytes: WNL, continue to monitor * Prophylaxis: (9) No contraindication to deep vein thrombosis (DVT) prophylaxis Status: Acute Plan: * Resumed Lovenox post-op (Hector Rodríguez MD R1) Problem Qualifiers (1) Diabetic foot ulcer: Qualified Code: E11.621 - Diabetic ulcer of toe of right foot associated with type 2 diabetes mellitus, with necrosis of muscle (2) Hypertension: Qualified Code: I10 - Essential hypertension (3) Depression: Qualified Code: F32.9 - Depression, unspecified depression type Hector Rodríguez MD R1 Jan 25, 2017 09:08 Steph Bowman MD Jan 25, 2017 15:53
[2017-01-25] MEDS: CHOLECALCIFEROL (VIT D3) 5000 UNIT CAP PO SCH (09:37)
[2017-01-25] MEDS: MULTIVITAMIN TAB PO SCH (09:37)
[2017-01-25] MEDS: LISINOPRIL 20 MG TAB PO SCH (09:37)
[2017-01-25] MEDS: buPROPion HCL 150 MG SUSTAINED RELEASE TAB PO SCH ×2 (09:37→21:09)
[2017-01-25] MEDS: LEVOFLOXACIN 750 MG TAB PO SCH (09:37)
[2017-01-25] MEDS: INSULIN DETEMIR 100 UNITS/ML VIAL SQ SCH ×2 (09:40→21:14)
[2017-01-25] MEDS: SODIUM CHLORIDE 0.9% FLUSH 10 ML FLUSH IV FLUSH SCH ×2 (09:42→21:10)
[2017-01-25] MEDS ORDERED: MAGNESIUM HYDROXIDE SUSP 30 ML CUP PO PRN (09:45)
[2017-01-25 12:05] VITALS: BP 133/83; PULSE 86; RESP 18; TEMP 97.7; O2SAT 98
[2017-01-25 16:05] VITALS: BP 117/70; PULSE 100; RESP 18; TEMP 96.6; O2SAT 98
--- NOTE | 2017-01-25 17:20 | PD.POD ---
Subjective Podiatric Problems Patient resting comfortably at bedside. S/P Right foot extensive wound debridement with 01/23/17. Patient states the foot is having less pain then days prior she denies any n/v/f/h/c/sob. She does have concerns about her elevated glucose levels though. Pain score: 3 Past Med/Surg/Social History Past Medical History Endocrine: REPORTS HX OF: Diabetes mellitus Cardiovascular: REPORTS HX OF: Hyperlipidemia, Hypertension Past Surgical History Gynecologic: DENIES HX OF: Hysterectomy Breast: DENIES HX OF: Mastectomy, bilateral, Mastectomy, left, Mastectomy, right Social History Smoking Status: Never Smoker Objective Vital Signs Vital Signs Date Time Temp Pulse Resp B/P Pulse Ox O2 Delivery O2 Flow Rate FiO2 01/25/17 16:05 96.6 100 18 117/70 98 01/25/17 12:05 97.7 86 18 133/83 98 01/25/17 08:05 97.0 89 16 129/72 97 01/25/17 05:25 96.4 78 18 119/62 96 01/24/17 23:07 16 01/24/17 21:08 97.6 82 20 136/81 98 Coded Allergies: *MDRO Multi-Drug Resistant Organism (Verified Adverse Reaction, Unknown, MRSA, 01/24/17) MRSA (wound) - 01/21/17 Physical Exam Remarks Right foot derm: medial first met head ulcer 5cm x 5cm x 0.8cm, small amount of exposed capsule, small amount of necrotic tissue proximally, majority of the tissue is granular, mild sanginous drainage, no malodor, no purulence, mild edema, slightl periwound erythema dorsally and plantar laterally 1cm no streaking Assessment & Plan A/P 1) right foot stage III ulcer s/p I&D with on 01/23/17 -pt is ok for d/c from podiatry standpoint once all outpt arrangment made -I have spoken with ID they are planning to d/c on oral abx -Pt will need wound VAC, walker, and HHC at d/c -Next VAC change on with wound care nurse (hopefully able to apply home VAC) -Keep WBing minimal, wear surgical shoe, favor the heel and use rolling walker -f/u with Dr.Milliron 5 days after d/c Lizzy Blevins DPM Jan 25, 2017 17:20
[2017-01-25] MEDS: ENOXAPARIN SODIUM 40 MG/0.4 ML SYRINGE SQ SCH (17:49)
[2017-01-25 20:00] VITALS: BP 131/63; PULSE 93; RESP 20; TEMP 97.1; O2SAT 96
[2017-01-25] MEDS: ACETAMINOPHEN/HYDROcodone 325 MG/7.5 MG TAB PO PRN (21:10)
--- NOTE | 2017-01-25 21:22 | HHI.FF ---
Face to Face Verification Diagnosis: (1) Diabetic foot ulcer Home Health Nursing Order: Wound care and dressing changes (Tues/Thurs/Sat VAC changes with santyl to necrotic portion) Home Health Aide Order: To Assist In: Bathing and personal care I have seen patient Isha Rosales on 01/25/17. My clinical findings support the need for the requested home health care services because: Limited ability to care for self High risk of falls Infection w/ risk of complications I certify that my clinical findings support that this patient is homebound because: Post-op weakness Unsteady gait/balance Lizzy Blevins DPM Jan 25, 2017 21:22
[2017-01-25] MEDS: DOCUSATE SODIUM 50 MG/SENNA 8.6 MG TAB PO PRN (21:23)
[2017-01-26] VITALS (7 sets, daily range): BP systolic 112–176; BP diastolic 61–87; PULSE 78–96; RESP 16–22; TEMP 96.5–97.9; O2SAT 97–99
[2017-01-26] MEDS: LEVOTHYROXINE SODIUM 100 MCG TAB PO SCH (06:00)
[2017-01-26] MEDS: CLINDAMYCIN INJ 600 MG in SODIUM CHLORIDE 0.9% INJ 100 ML IV SCH ×2 (06:27→13:52)
[2017-01-26] MEDS: INSULIN ASPART SUPPLEMENTAL SCALE SQ SCH ×4 (06:27→21:41)
[2017-01-26 07:03] LABS: HEMATOCRIT 35.7 % (35.0-46.0); MEAN CELL VOLUME 85.2 FL (80.0-100.0); MEAN CORPUSCULAR HEMOGLOBIN 28.8 PG (27.0-34.0); MEAN CORPUSCULAR HGB CONC 33.8 % (32.0-36.0); PLATELET COUNT 339 TH/MM3 (150-450); RED BLOOD COUNT 4.19 MIL/MM3 (4.00-5.30); RED CELL DISTRIBUTION WIDTH 13.2 % (11.6-17.2); REVIEW FLAG FINAL; WHITE BLOOD COUNT 7.4 TH/MM3 (4.0-11.0)
[2017-01-26 07:21] LABS: BICARBONATE 28.6 MEQ/L (21.0-32.0); POTASSIUM 3.8 MEQ/L (3.5-5.1)
[2017-01-26] MEDS: LISINOPRIL 20 MG TAB PO SCH (09:30)
[2017-01-26] MEDS: LEVOFLOXACIN 750 MG TAB PO SCH (09:30)
[2017-01-26] MEDS: buPROPion HCL 150 MG SUSTAINED RELEASE TAB PO SCH ×2 (09:30→21:28)
[2017-01-26] MEDS: MULTIVITAMIN TAB PO SCH (09:31)
[2017-01-26] MEDS: CHOLECALCIFEROL (VIT D3) 5000 UNIT CAP PO SCH (09:31)
[2017-01-26] MEDS: SODIUM CHLORIDE 0.9% FLUSH 10 ML FLUSH IV FLUSH SCH ×2 (09:31→21:44)
[2017-01-26] MEDS: COLLAGENASE OINT 30 GM TUBE TOPICAL SCH (09:31)
[2017-01-26] MEDS: INSULIN DETEMIR 100 UNITS/ML VIAL SQ SCH ×2 (09:36→21:31)
--- NOTE | 2017-01-26 14:30 | HHI.FPPN ---
Subjective Remarks Patient seen and examined this morning. No acute events overnight with vital signs WNL. She is encouraged this morning with her lowering WBC and BG levels. She has no complaints this morning and denies any fevers, chills, SOB, chest pain, NVD, or calf tenderness. (Hector Rodríguez MD R1) Objective Vitals Vital Signs Date Time Temp Pulse Resp B/P Pulse Ox O2 Delivery O2 Flow Rate FiO2 01/26/17 13:00 112/70 01/26/17 12:00 96.7 94 16 176/87 98 01/26/17 08:00 96.5 83 16 145/75 99 01/26/17 04:00 97.0 78 20 127/61 97 01/26/17 00:00 96.7 84 20 126/66 97 01/25/17 20:00 97.1 93 20 131/63 96 01/25/17 16:05 96.6 100 18 117/70 98 I/O 01/25/17 01/25/17 01/25/17 01/26/17 01/26/17 01/26/17 07:00 15:00 23:00 07:00 15:00 23:00 Intake Total 280 ml 720 ml Balance 280 ml 720 ml Intake Oral 280 ml 720 ml # Voids 3 0 2 # Bowel Movements 0 0 1 (Hector Rodríguez MD R1) Result Diagram: 01/26/17 0543 01/26/17 0543 Objective Remarks GENERAL: No distress, lying in bed. Wound vac in place with minimal drainage. SKIN: Affected area is KEEGAN wrapped with wound-vac in place and elevated, sanguineous fluid drainage small amount CARDIOVASCULAR: Regular rate and rhythm without obvious murmurs, gallops, or rubs. RESPIRATORY: Clear to auscultation bilaterally with no wheezing, rhonchi or crackles. No increased work of breathing. GASTROINTESTINAL: Abdomen soft, non-tender, nondistended with positive bowel sounds. MUSCULOSKELETAL: No cyanosis or edema. NEURO/PSYCH: Awake and alert. Pleasant mood and affect. Does not appear anxious. Normal sensation to light touch in toes. (Hector Rodríguez MD R1) A/P Assessment and Plan Ms. Rosales is a 56 y/o F with a PMHx of T2DM, HTN, and depression/anxiety presenting with a R foot ulceration now s/p I & D abscess of foot with wound vac by Podiatry on 01/23/17. Discharge Planning Cleared for discharge by Podiatry with wound vac changed planned for tomorrow, . Awaiting ID recommendations for outpatient ABX. Likely discharge tomorrow after wound vac change. (Hector Rodríguez MD R1) Discharge Planning Anticipate discharge home tomorrow with home health after wound vac change. Home health for PT and wound vac changes TTSa. Order for wheeled walker with a seat. Attending Attestation Patient seen and examined. Case reviewed and discussed with the resident team. Agree with plan of care as discussed with me and documented in the resident note. (Steph Bowman MD) Problem List: (1) Diabetic foot ulcer Status: Acute Plan: Right foot ulceration at the head of the first metatarsal. Leukocytosis resolved. 100.4 temperature overnight, now normal temperatures. Osteomyelitis not present on MRI. * Podiatry consulted, appreciate assistance * Drainage of abscess with wound VAC placement on 01/23/17 by podiatry. Patient will require long-term antibiotics IV for 4 weeks, as well as wound VAC changes. * Initial Wound cultures growing MRSA, gram-negative rods and anaerobic gram- negative rods. * Definitive culture from surgical specimen growing MRSA and gram negative mary. Identification and sensitivities to follow. * Consulted infectious disease, appreciate assistance. * Currently with wound VAC. Per podiatry: Set at 125 mmHg medium continuous setting and Tues/Thurs/Sat vac changes ordered per nursing while in-house * Consulted case management, appreciate assistance. Patient will require home health care. * Blood cultures 2: No growth in 3 days * Tetanus/Diphtheria Booster given on 01/21 Antibiotics: * Clindamycin 600 mg IV every 8 hours (01/21- ) * Levofloxacin 750 mg by mouth daily (01/22- ) * Adjust according to surgical specimen and ID recs Pain control * Hydrocodone 5 mg for pain 1-5 every 4 hours, hydrocodone 7.5 mg for pain 6-10 every 4 hours, Toradol 30 mg every 6 hours when necessary for breakthrough pain * Acetaminophen 500 mg every 4 hours when necessary for fever * Mckenna-Colace 2 tabs daily at bedtime scheduled to prevent constipation (2) Diabetes mellitus type 2 in obese Status: Acute Plan: Elevated blood glucoses likely due to infectious process. * Held home glipizide and metformin * Low dose Sliding scale insulin * Increased Levemir to 15 units bid * Started Metformin 500 BID * Consulted diabetic education * Team will plan on discharging patient home on Levemir 15 units BID, Metformin 500 BID, and Novolog 5 units before meals. She will also be discharged home with a glucometer to check her BG each morning and at approximately 1600. (3) Hypertension Status: Acute Plan: * Continue lisinopril 20 mg daily * Clonidine 0.1 mg every 6 hours when necessary for SBP greater than 180 or DBP greater than 100 (4) Hypothyroidism (acquired) Status: Chronic Plan: Currently on 100 g of levothyroxine daily. TSH normal at 1.23 Plan: * Continue levothyroxine 100 g daily (5) Dyslipidemia Status: Chronic Plan: Patient with history of dyslipidemia. Currently on lovastatin 20 mg daily, however has recently had cramping episodes which she believes could be related to her medication. Lipid panel normal: Triglycerides 141, cholesterol 170, LDL 95, HDL 47. Creatinine kinase normal at 68 Plan: * Holding home lovastatin (6) Depression Status: Chronic Plan: Patient with reported depression. Currently on bupropion 150 mg twice a day. Plan: * Continue bupropion 150 mg twice a day (7) Vitamin D insufficiency Status: Chronic Plan: Plan: * Continue home with vitamin D supplementation 5000 units daily (8) Nutrition, metabolism, and development symptoms Status: Acute Plan: * Fluids: SLIV, tolerating PO well * Diet: Diabetic heart healthy diet * Electrolytes: WNL, continue to monitor * Prophylaxis: (9) No contraindication to deep vein thrombosis (DVT) prophylaxis Status: Acute Plan: * Resumed Lovenox post-op (Hector Rodríguez MD R1) Problem Qualifiers (1) Diabetic foot ulcer: Qualified Code: E11.621 - Diabetic ulcer of toe of right foot associated with type 2 diabetes mellitus, with necrosis of muscle (2) Hypertension: Qualified Code: I10 - Essential hypertension (3) Depression: Qualified Code: F32.9 - Depression, unspecified depression type Hector Rodríguez MD R1 Jan 26, 2017 14:30 Steph Bowman MD Jan 26, 2017 15:54
--- NOTE | 2017-01-26 16:41 | HHI.IDPN ---
Subjective Subjective Remarks Ms. Rosales is a 56 y/o F with a PMHx of DM2 uncontrolled with neuropathy (does not reports nephropathy or any visual problems), HTN, and depression/anxiety presenting with a R foot ulceration. Her PMhx is also significant for left foot 5th toe blister treated as MRSA with Clindamycin oral. She reports she has had calluses that she has been "nursing by herself" at home and has not seen any MD or certified prosthetist for any foot problems so far. She also reports having some skin eruptions on her face area and scalp and she thinks clinda has helped her with those issues as well. 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 She has been having pain at the callus site but has been toughing it out and working despite the pain. With this background patient She reports that this ulceration started 3 weeks ago under a callus formation on the ball of her foot. When the callus bust open and she could see a track she decided to come to ED. She endorses anorexia, nausea, fevers, myalgias, and diaphoresis over the last 24 hours. She now agrees to go to see a certified prosthetist on a regular basis. ID is consulted for evaluation and Mment of Infected Diabetic foot abscess/ ulcer. Antibiotics Clinda IV Lines Line sites with no e.o infection Past Medical History reviewed Allergies: Coded Allergies: *MDRO Multi-Drug Resistant Organism (Verified Adverse Reaction, Unknown, MRSA, 01/24/17) MRSA (wound) - 01/21/17 Objective . Vital Signs Date Time Temp Pulse Resp B/P Pulse Ox O2 Delivery O2 Flow Rate FiO2 01/26/17 13:00 112/70 01/26/17 12:00 96.7 94 16 176/87 98 01/26/17 08:00 96.5 83 16 145/75 99 01/26/17 04:00 97.0 78 20 127/61 97 01/26/17 00:00 96.7 84 20 126/66 97 01/25/17 20:00 97.1 93 20 131/63 96 01/25/17 01/25/17 01/26/17 15:00 23:00 07:00 Intake Total 280 ml Balance 280 ml Intake Oral 280 ml # Voids 3 0 # Bowel Movements 0 0 . Laboratory Tests Test 01/25/17 01/26/17 06:04 05:43 White Blood Count 7.7 TH/MM3 7.4 TH/MM3 Red Blood Count 4.28 MIL/MM3 4.19 MIL/MM3 Hemoglobin 12.1 GM/DL 12.1 GM/DL Hematocrit 36.7 % 35.7 % Mean Corpuscular Volume 85.7 FL 85.2 FL Mean Corpuscular Hemoglobin 28.3 PG 28.8 PG Mean Corpuscular Hemoglobin 33.0 % 33.8 % Concent Red Cell Distribution Width 13.2 % 13.2 % Platelet Count 327 TH/MM3 339 TH/MM3 Mean Platelet Volume 7.2 FL 7.1 FL Neutrophils (%) (Auto) 51.1 % Lymphocytes (%) (Auto) 36.0 % Monocytes (%) (Auto) 9.4 % Eosinophils (%) (Auto) 2.5 % Basophils (%) (Auto) 1.0 % Neutrophils # (Auto) 3.9 TH/MM3 Lymphocytes # (Auto) 2.8 TH/MM3 Monocytes # (Auto) 0.7 TH/MM3 Eosinophils # (Auto) 0.2 TH/MM3 Basophils # (Auto) 0.1 TH/MM3 CBC Comment DIFF FINAL Differential Comment Laboratory Tests Test 01/25/17 01/26/17 06:04 05:43 Sodium Level 136 MEQ/L 139 MEQ/L Potassium Level 3.5 MEQ/L 3.8 MEQ/L Chloride Level 99 MEQ/L 101 MEQ/L Carbon Dioxide Level 28.7 MEQ/L 28.6 MEQ/L Anion Gap 8 MEQ/L 9 MEQ/L Blood Urea Nitrogen 16 MG/DL 14 MG/DL Creatinine 0.71 MG/DL 0.72 MG/DL Estimat Glomerular Filtration 85 ML/MIN 83 ML/MIN Rate Random Glucose 248 MG/DL 187 MG/DL Calcium Level 9.3 MG/DL 9.2 MG/DL Imaging Last Impressions Foot MRI 01/22/17 0000 Signed Impressions: Service Date/Time: Sunday, January 22, 2017 12:25 - CONCLUSION: 1. Cutaneous ulceration of the great toe with severe surrounding cellulitis and central sinus tract or devitalized tissue. 2. No evidence of defined abscess or osteomyelitis. Favian Shabazz MD Foot X-Ray 01/21/[id number] Signed Impressions: Service Date/Time: Saturday, January 21, 2017 21:37 - CONCLUSION: No radiographic evidence to suggest osteomyelitis. Kurt Geiger Jr., MD Physical Exam GENERAL: Obese, well-developed patient, in no apparent distress. SKIN: No rashes, ecchymoses or lesions. Cool and dry. HEAD: Atraumatic. Normocephalic. No temporal or scalp tenderness. EYES: Pupils equal round and reactive. Extraocular motions intact. No scleral icterus. No injection or drainage. ENT: Nose without bleeding, purulent drainage or septal hematoma. Throat without erythema, tonsillar hypertrophy or exudate. Uvula midline. Airway patent. NECK: Trachea midline. Supple, nontender, no meningeal signs. CARDIOVASCULAR: RRR. RESPIRATORY: Clear to auscultation. Breath sounds equal bilaterally. No wheezes , rales, or rhonchi. GASTROINTESTINAL: Abdomen soft, non-tender, nondistended. MUSCULOSKELETAL: Right foot wound vac. Patient showed me a picture on her smart phone taken yday by to show me. Wound base appears clean, good bleeding noted. NEUROLOGICAL: Awake and alert. Grossly non focal Psych: cooperative IV line sites with no e/o infection. Assessment & Plan Remarks Sepsis present on admission (leucocytosis, tachycardia, source of infection: foot) Right foot abscess/ulcer s/p I&D MRSA, gram negative anaerobic bacteria infection (preop cultures) DM2 uncontrolled DM with neuropathy. Recs: DC Clinda IV for now. d/w podiatry: no bone infection. Will treat as abscess for 2 weeks. Start oral levaquin 500 mg po daily for 2 weeks Start Oral flagyl 500 mg po q8hrs for 2 weeks Follow cultures Follow clinically. d/w pt and RN for pt. Outpt follow up with and Podiatry. Counseled about foot care and infection prevention. Will sign off please call back if any change in clinical condition or questions. Joseline Jimenez MD Jan 26, 2017 16:41
[2017-01-26] MEDS: metFORMIN HCL 500 MG TAB PO SCH (17:50)
[2017-01-26] MEDS: ENOXAPARIN SODIUM 40 MG/0.4 ML SYRINGE SQ SCH (17:50)
--- NOTE | 2017-01-26 20:18 | HHI.DCPOC ---
Discharge Care Plan Diagnosis: (1) Diabetic foot ulcer Goals to Promote Your Health * To prevent worsening of your condition and complications * To maintain your health at the optimal level Directions to Meet Your Goals Take your medications as prescribed Follow your dietary instruction Follow activity as directed Keep your appointments as scheduled Take your immunizations and boosters as scheduled If your symptoms worsen call your PCP, if no PCP go to Urgent Care Center or Emergency Room Smoking is Dangerous to Your Health. Avoid second hand smoke Call the 24-hour hour crisis hotline for domestic abuse at Hector Rodríguez MD R1 Jan 26, 2017 20:18
[2017-01-26] MEDS: ACETAMINOPHEN/HYDROcodone 325 MG/7.5 MG TAB PO PRN (21:29)
[2017-01-26] MEDS: metroNIDAZOLE 500 MG TAB PO SCH (21:29)
[2017-01-26] MEDS: DOCUSATE SODIUM 50 MG/SENNA 8.6 MG TAB PO PRN (21:43)
[2017-01-27] VITALS: BP 113/58; PULSE 86; RESP 20; TEMP 98.1; O2SAT 98
[2017-01-27 04:00] VITALS: BP 112/58; PULSE 83; RESP 20; TEMP 97.8; O2SAT 97
[2017-01-27] MEDS: metroNIDAZOLE 500 MG TAB PO SCH ×3 (05:51→21:57)
[2017-01-27] MEDS: LEVOTHYROXINE SODIUM 100 MCG TAB PO SCH (05:51)
[2017-01-27] MEDS: INSULIN ASPART SUPPLEMENTAL SCALE SQ SCH ×4 (05:58→22:04)
[2017-01-27 08:00] VITALS: BP 130/88; PULSE 95; RESP 16; TEMP 96.5; O2SAT 98
[2017-01-27] MEDS ORDERED: EASY1MIS7 (08:24)
[2017-01-27] MEDS ORDERED: LEVEMIR SQ (08:24)
[2017-01-27] MEDS ORDERED: SENN1TAB PO (08:24)
[2017-01-27] MEDS ORDERED: HYDR-3516 PO (08:24)
[2017-01-27] MEDS ORDERED: LEVA750T9 PO (08:24)
[2017-01-27] MEDS ORDERED: METR-1 PO (08:24)
[2017-01-27] MEDS: COLLAGENASE OINT 30 GM TUBE TOPICAL SCH (09:00)
[2017-01-27] MEDS: buPROPion HCL 150 MG SUSTAINED RELEASE TAB PO SCH ×2 (09:55→21:55)
[2017-01-27] MEDS: MULTIVITAMIN TAB PO SCH (09:55)
[2017-01-27] MEDS: LEVOFLOXACIN 750 MG TAB PO SCH (09:55)
[2017-01-27] MEDS: metFORMIN HCL 500 MG TAB PO SCH ×2 (09:55→18:01)
[2017-01-27] MEDS: SODIUM CHLORIDE 0.9% FLUSH 10 ML FLUSH IV FLUSH SCH ×2 (09:55→21:54)
[2017-01-27] MEDS: LISINOPRIL 20 MG TAB PO SCH (09:55)
[2017-01-27] MEDS: CHOLECALCIFEROL (VIT D3) 5000 UNIT CAP PO SCH (09:55)
[2017-01-27] MEDS: INSULIN DETEMIR 100 UNITS/ML VIAL SQ SCH ×2 (10:06→22:04)
[2017-01-27] MEDS ORDERED: [UNRECOGNIZED DRUG - OTHER] (12:10)
[2017-01-27] MEDS ORDERED: INSU100V2 SQ ×2 (12:10→16:08)
[2017-01-27] MEDS ORDERED: ACET500T13 PO (12:12)
[2017-01-27 12:50] VITALS: BP 125/63; PULSE 91; RESP 16; TEMP 96.5; O2SAT 97
--- NOTE | 2017-01-27 14:27 | HHI.FF ---
Face to Face Verification Diagnosis: (1) Diabetic foot ulcer Physical Therapy Order: Evaluate and Treat I have seen patient Isha Rosales on 01/27/17. My clinical findings support the need for the requested home health care services because: Ltd mobility - disease progression Deconditioned w/ increased weakness Limited ability to care for self High risk of falls Infection w/ risk of complications I certify that my clinical findings support that this patient is homebound because: Post-op weakness Unsteady gait/balance Hector Rodríguez MD R1 Jan 27, 2017 14:27
[2017-01-27 16:00] VITALS: BP 163/90; PULSE 105; RESP 16; TEMP 97.8; O2SAT 99
--- NOTE | 2017-01-27 16:05 | HHI.FPPN ---
Subjective Remarks Patient seen and examined this morning by medical team. No acute events overnight with vital signs stable. Patient states she is feeling well and is looking forward to being discharged after her wound VAC change today. She is concerned about her blood sugar control and appropriate follow-up after discharge. She currently has no complaints and denies any fevers, chills, shortness of breath, chest pain, NVD, abdominal pain, or calf tenderness. ( Hector Rodríguez MD R1) Objective Vitals Vital Signs Date Time Temp Pulse Resp B/P Pulse Ox O2 Delivery O2 Flow Rate FiO2 01/27/17 12:50 96.5 91 16 125/63 97 01/27/17 08:00 96.5 95 16 130/88 98 01/27/17 04:00 97.8 83 20 112/58 97 01/27/17 00:00 98.1 86 20 113/58 98 01/26/17 22:29 16 01/26/17 20:00 97.9 94 22 157/ 99 01/26/17 16:00 96.5 96 16 124/77 97 I/O 01/26/17 01/26/17 01/26/17 01/27/17 01/27/17 01/27/17 07:00 15:00 23:00 07:00 15:00 23:00 Intake Total 280 ml 720 ml 340 ml 240 ml Output Total 650 ml Balance 280 ml 720 ml -310 ml 240 ml Intake Oral 280 ml 720 ml 340 ml 240 ml Output Urine Total 650 ml # Voids 0 2 2 # Bowel Movements 0 1 (Hector Rodríguez MD R1) Result Diagram: 01/26/17 0543 01/26/17 0543 Objective Remarks GENERAL: No distress, lying in bed. Wound vac in place with minimal drainage. SKIN: Affected area is KEEGAN wrapped with wound-vac in place and elevated, sanguineous fluid drainage small amount in wound vac container. CARDIOVASCULAR: Regular rate and rhythm without obvious murmurs, gallops, or rubs. RESPIRATORY: Clear to auscultation bilaterally with no wheezing, rhonchi or crackles. No increased work of breathing. GASTROINTESTINAL: Abdomen soft, non-tender, nondistended with positive bowel sounds. MUSCULOSKELETAL: No cyanosis or edema. NEURO/PSYCH: Awake and alert. Pleasant mood and affect. Does not appear anxious. Normal sensation to light touch in toes. (Hector Rodríguez MD R1) A/P Assessment and Plan Ms. Rosales is a 56 y/o F with a PMHx of T2DM, HTN, and depression/anxiety presenting with a R foot ulceration now s/p I & D abscess of foot with wound vac by Podiatry on 01/23/17. Discharge Planning Discharge home today pending wound vac change. Home health for PT and wound vac changes TTSa. Order for wheeled walker with a seat. (Hector Rodríguez MD R1) Attending Attestation Patient seen and examined. Case reviewed and discussed with the resident team. Agree with plan of care as discussed with me and documented in the resident note. (Steph Bowman MD) Problem List: (1) Diabetic foot ulcer Status: Acute Plan: Right foot ulceration at the head of the first metatarsal. Leukocytosis resolved. 100.4 temperature overnight, now normal temperatures. Osteomyelitis not present on MRI. * Podiatry consulted, appreciate assistance * Drainage of abscess with wound VAC placement on 01/23/17 by podiatry. Patient will require long-term antibiotics IV for 4 weeks, as well as wound VAC changes. * Initial Wound cultures growing MRSA, gram-negative rods and anaerobic gram- negative rods. * Definitive culture from surgical specimen growing MRSA and gram negative mary. Identification and sensitivities to follow. * Consulted infectious disease, appreciate assistance. * Currently with wound VAC. Per podiatry: Set at 125 mmHg medium continuous setting and Tues/Thurs/Sat vac changes ordered per nursing while in-house * Consulted case management, appreciate assistance. Patient will require home health care. * Blood cultures 2: No growth in 3 days * Tetanus/Diphtheria Booster given on 01/21 Antibiotics: * Clindamycin 600 mg IV every 8 hours (01/21-01/27) * Levofloxacin 750 mg by mouth daily (01/22- ) * Flagyl 500mg Q8H by mouth daily (01/27- ) * Patient to be discharged home with 2 weeks of Levofloxacin and Flagyl PO Pain control * Hydrocodone 5 mg for pain 1-5 every 4 hours, hydrocodone 7.5 mg for pain 6-10 every 4 hours, Toradol 30 mg every 6 hours when necessary for breakthrough pain * Acetaminophen 500 mg every 4 hours when necessary for fever * Patient to be discharged home on Acetaminophen 500 mg every 4 hours PRN for pain * Mckenna-Colace 2 tabs daily at bedtime scheduled to prevent constipation (2) Diabetes mellitus type 2 in obese Status: Acute Plan: Elevated blood glucoses likely due to infectious process. * DC home glipizide * Low dose Sliding scale insulin while in hospital * Patient to be discharged home on: * Levemir to 15 units twice a day * Metformin 1000 BID * Novolog R 3 units AC plus 1 unit for every 50 mg/dl >180 mg/dl * Follow up with diabetic education within 1 week (3) Hypertension Status: Acute Plan: * Continue lisinopril 20 mg daily * Clonidine 0.1 mg every 6 hours when necessary for SBP greater than 180 or DBP greater than 100 (4) Hypothyroidism (acquired) Status: Chronic Plan: Currently on 100 g of levothyroxine daily. TSH normal at 1.23 Plan: * Continue levothyroxine 100 g daily (5) Dyslipidemia Status: Chronic Plan: Patient with history of dyslipidemia. Currently on lovastatin 20 mg daily, however has recently had cramping episodes which she believes could be related to her medication. Lipid panel normal: Triglycerides 141, cholesterol 170, LDL 95, HDL 47. Creatinine kinase normal at 68 Plan: * Holding home lovastatin (6) Depression Status: Chronic Plan: Patient with reported depression. Currently on bupropion 150 mg twice a day. Plan: * Continue bupropion 150 mg twice a day (7) Vitamin D insufficiency Status: Chronic Plan: Plan: * Continue home with vitamin D supplementation 5000 units daily (8) Nutrition, metabolism, and development symptoms Status: Acute Plan: * Fluids: SLIV, tolerating PO well * Diet: Diabetic heart healthy diet * Electrolytes: WNL, continue to monitor (9) No contraindication to deep vein thrombosis (DVT) prophylaxis Status: Acute Plan: * Resumed Lovenox post-op * Discontinued upon discharge (Hector Rodríguez MD R1) Problem Qualifiers (1) Diabetic foot ulcer: Qualified Code: E11.621 - Diabetic ulcer of toe of right foot associated with type 2 diabetes mellitus, with necrosis of muscle (2) Hypertension: Qualified Code: I10 - Essential hypertension (3) Depression: Qualified Code: F32.9 - Depression, unspecified depression type Hector Rodríguez MD R1 Jan 27, 2017 16:05 Steph Bowman MD Jan 27, 2017 17:56
[2017-01-27] MEDS ORDERED: GLUCTES27 (17:49)
[2017-01-27] MEDS: ENOXAPARIN SODIUM 40 MG/0.4 ML SYRINGE SQ SCH (18:00)
[2017-01-27 20:00] VITALS: BP 126/81; PULSE 98; RESP 21; TEMP 98.5; O2SAT 98
[2017-01-27] MEDS: ACETAMINOPHEN/HYDROcodone 325 MG/7.5 MG TAB PO PRN (21:59)
[2017-01-28] VITALS: BP 120/56; PULSE 89; RESP 20; TEMP 96.7; O2SAT 99
[2017-01-28 04:00] VITALS: BP 135/83; PULSE 83; RESP 20; TEMP 96.4; O2SAT 98
[2017-01-28] MEDS: metroNIDAZOLE 500 MG TAB PO SCH ×2 (04:24→12:07)
[2017-01-28] MEDS: LEVOTHYROXINE SODIUM 100 MCG TAB PO SCH (04:24)
[2017-01-28 08:16] VITALS: BP 127/60; PULSE 86; RESP 16; TEMP 97.1; O2SAT 96
[2017-01-28] MEDS: CHOLECALCIFEROL (VIT D3) 5000 UNIT CAP PO SCH (08:26)
[2017-01-28] MEDS: buPROPion HCL 150 MG SUSTAINED RELEASE TAB PO SCH (08:26)
[2017-01-28] MEDS: MULTIVITAMIN TAB PO SCH (08:26)
[2017-01-28] MEDS: LEVOFLOXACIN 750 MG TAB PO SCH (08:26)
[2017-01-28] MEDS: LISINOPRIL 20 MG TAB PO SCH (08:26)
[2017-01-28] MEDS: metFORMIN HCL 500 MG TAB PO SCH ×2 (08:26→17:40)
[2017-01-28] MEDS: INSULIN DETEMIR 100 UNITS/ML VIAL SQ SCH (08:34)
[2017-01-28] MEDS: INSULIN ASPART SUPPLEMENTAL SCALE SQ SCH ×3 (08:34→16:00)
[2017-01-28] MEDS: SODIUM CHLORIDE 0.9% FLUSH 10 ML FLUSH IV FLUSH SCH (08:35)
[2017-01-28] MEDS: COLLAGENASE OINT 30 GM TUBE TOPICAL SCH (08:35)
[2017-01-28] MEDS ORDERED: NOVORP2 SQ ×4 (09:29→09:40)
[2017-01-28] MEDS ORDERED: WALKER (09:32)
[2017-01-28 12:00] VITALS: BP 143/76; PULSE 98; RESP 16; TEMP 96; O2SAT 100
--- NOTE | 2017-01-28 14:03 | HHI.FPPN ---
Subjective Remarks No acute events. Sitting up in chair, no distress. No acute events overnight. Plan is for wound vac to be changed today followed by discharge home with home health care. No fevers, chills, shortness of breath, chest pain, abdominal pain , nausea, vomiting, or calf tenderness. Reviewed plan for insulin regimen as an outpatient. (Félix Buenrostro MD R2) Objective Vitals Vital Signs Date Time Temp Pulse Resp B/P Pulse Ox O2 Delivery O2 Flow Rate FiO2 01/28/17 12:00 96.0 98 16 143/76 100 01/28/17 08:16 97.1 86 16 127/60 96 01/28/17 04:00 96.4 83 20 135/83 98 01/28/17 00:00 96.7 89 20 120/56 99 01/27/17 23:11 16 01/27/17 20:00 98.5 98 21 126/81 98 01/27/17 16:00 97.8 105 16 163/90 99 I/O 01/27/17 01/27/17 01/27/17 01/28/17 01/28/17 01/28/17 07:00 15:00 23:00 07:00 15:00 23:00 Intake Total 240 ml 600 ml 480 ml 240 ml Balance 240 ml 600 ml 480 ml 240 ml Intake Oral 240 ml 600 ml 480 ml 240 ml # Voids 2 3 2 1 # Bowel Movements 1 (Félix Buenrostro MD R2) Result Diagram: 01/26/17 0543 01/26/17 0543 Objective Remarks GENERAL: No distress, sitting up in chair. Wound vac in place with minimal drainage. SKIN: Affected area is KEEGAN wrapped with wound-vac in place, fluid drainage small amount in wound vac container. CARDIOVASCULAR: Regular rate and rhythm without obvious murmurs, gallops, or rubs. RESPIRATORY: Clear to auscultation bilaterally with no wheezing, rhonchi or crackles. No increased work of breathing. GASTROINTESTINAL: Abdomen soft, non-tender, nondistended with positive bowel sounds. MUSCULOSKELETAL: No cyanosis or edema. NEURO/PSYCH: Awake and alert. Pleasant mood and affect. Does not appear anxious. Normal sensation to light touch in toes. Procedures I&D, wound vac placement (Félix Buenrostro MD R2) A/P Assessment and Plan 56 y/o F with a PMHx of T2DM, HTN, and depression/anxiety presenting with a R foot ulceration now s/p I & D abscess of foot with wound vac by Podiatry on . Discharge Planning Discharge home today pending wound vac change. Home health for PT and wound vac changes TTSa. Order for wheeled walker with a seat, with knee walker for mobility. Minimal weight bearing. (Félix Buenrostro MD R2) Attending Attestation Patient seen and examined. Case reviewed and discussed with the resident team. Agree with plan of care as discussed with me and documented in the resident note. (Steph Bowman MD) Problem List: (1) Diabetic foot ulcer Status: Acute Plan: Right foot ulceration at the head of the first metatarsal. Leukocytosis resolved. Afebrile. Osteomyelitis not present on MRI. * Podiatry consulted, appreciate assistance * Drainage of abscess with wound VAC placement on 01/23/17 by podiatry. She will require wound vac changes three times weekly as an outpatient. * Initial wound cultures growing MRSA, gram-negative rods and anaerobic gram- negative rods. * Definitive culture from surgical specimen growing MRSA and gram negative mary. * Consulted infectious disease, appreciate assistance. * Currently with wound VAC. Per podiatry: Set at 125 mmHg medium continuous setting and //Tue vac changes ordered per nursing while in-house. May require change to Tuesday, Tuesday, Tuesday wound vac changes if wound vac changed today. * Consulted case management, appreciate assistance. Patient will require home health care. * Blood cultures 2: No growth in 3 days * Tetanus/Diphtheria Booster given on 01/21 * Knee walker for help with mobility. Antibiotics: * Clindamycin 600 mg IV every 8 hours (01/21-01/27) * Levofloxacin 750 mg by mouth daily (01/22- ) * Flagyl 500mg Q8H by mouth daily (01/27- ) * Patient to be discharged home with 2 weeks of Levofloxacin and Flagyl PO Pain control * Hydrocodone 5 mg for pain 1-5 every 4 hours, hydrocodone 7.5 mg for pain 6-10 every 4 hours, Toradol 30 mg every 6 hours when necessary for breakthrough pain * Acetaminophen 500 mg every 4 hours when necessary for fever * Patient to be discharged home on Acetaminophen 500 mg every 4 hours PRN for pain * Mckenna-Colace 2 tabs daily at bedtime scheduled to prevent constipation (2) Diabetes mellitus type 2 in obese Status: Acute Plan: Elevated blood glucoses likely due to infectious process. * DC home glipizide * Low dose Sliding scale insulin while in hospital * Patient to be discharged home on: * Levemir to 15 units twice a day * Metformin 1000 BID * Novolog R 3 units AC plus 1 unit for every 50 mg/dl >180 mg/dl. Instructions written and given to patient. * Follow up with diabetic education within 1 week (3) Hypertension Status: Acute Plan: * Continue lisinopril 20 mg daily * Clonidine 0.1 mg every 6 hours when necessary for SBP greater than 180 or DBP greater than 100 (4) Hypothyroidism (acquired) Status: Chronic Plan: Currently on 100 g of levothyroxine daily. TSH normal at 1.23 Plan: * Continue levothyroxine 100 g daily (5) Dyslipidemia Status: Chronic Plan: Patient with history of dyslipidemia. Currently on lovastatin 20 mg daily, however has recently had cramping episodes which she believes could be related to her medication. Lipid panel normal: Triglycerides 141, cholesterol 170, LDL 95, HDL 47. Creatinine kinase normal at 68 Plan: * Holding home lovastatin (6) Depression Status: Chronic Plan: Patient with reported depression. Currently on bupropion 150 mg twice a day. Plan: * Continue bupropion 150 mg twice a day (7) Vitamin D insufficiency Status: Chronic Plan: Plan: * Continue home with vitamin D supplementation 5000 units daily (8) Nutrition, metabolism, and development symptoms Status: Acute Plan: * Fluids: SLIV, tolerating PO well * Diet: Diabetic heart healthy diet * Electrolytes: WNL, continue to monitor (9) No contraindication to deep vein thrombosis (DVT) prophylaxis Status: Acute Plan: * Resumed Lovenox post-op * Discontinued upon discharge (Félix Buenrostro MD R2) Problem Qualifiers (1) Diabetic foot ulcer: Qualified Code: E11.621 - Diabetic ulcer of toe of right foot associated with type 2 diabetes mellitus, with necrosis of muscle (2) Hypertension: Qualified Code: I10 - Essential hypertension (3) Depression: Qualified Code: F32.9 - Depression, unspecified depression type Félix Buenrostro MD R2 Jan 28, 2017 14:03 Steph Bowman MD Jan 28, 2017 15:47
--- NOTE | 2017-01-28 15:14 | HHI.DS ---
Discharge Summary Admission Date Jan 21, 2017 at 11:09 pm Discharge Date: Jan 28, 2017 Admitting Diagnosis diabetic foot ulcer (1) Diabetic foot ulcer Diagnosis: Principal Plan: Right foot ulceration at the head of the first metatarsal. Leukocytosis resolved. Afebrile. Osteomyelitis not present on MRI. * Podiatry consulted, appreciate assistance * Drainage of abscess with wound VAC placement on 01/23/17 by podiatry. Patient will require long-term antibiotics IV for 4 weeks, as well as wound VAC changes. * Initial wound cultures growing MRSA, gram-negative rods and anaerobic gram- negative rods. * Definitive culture from surgical specimen growing MRSA and gram negative mary. * Consulted infectious disease, appreciate assistance. * Currently with wound VAC. Per podiatry: Set at 125 mmHg medium continuous setting and //Tue vac changes ordered per nursing while in-house. May require change to Tuesday, Tuesday, Tuesday wound vac changes if wound vac changed today. * Consulted case management, appreciate assistance. Patient will require home health care. * Blood cultures 2: No growth in 3 days * Tetanus/Diphtheria Booster given on 01/21 * Knee walker for help with mobility. Antibiotics: * Clindamycin 600 mg IV every 8 hours (01/21-01/27) * Levofloxacin 750 mg by mouth daily (01/22- ) * Flagyl 500mg Q8H by mouth daily (01/27- ) * Patient to be discharged home with 2 weeks of Levofloxacin and Flagyl PO Pain control * Hydrocodone 5 mg for pain 1-5 every 4 hours, hydrocodone 7.5 mg for pain 6-10 every 4 hours, Toradol 30 mg every 6 hours when necessary for breakthrough pain * Acetaminophen 500 mg every 4 hours when necessary for fever * Patient to be discharged home on Acetaminophen 500 mg every 4 hours PRN for pain * Mckenna-Colace 2 tabs daily at bedtime scheduled to prevent constipation (2) Diabetes mellitus type 2 in obese Diagnosis: Principal Plan: Elevated blood glucoses likely due to infectious process. * DC home glipizide * Low dose Sliding scale insulin while in hospital * Patient to be discharged home on: * Levemir to 15 units twice a day * Metformin 1000 BID * Novolog R 3 units AC plus 1 unit for every 50 mg/dl >180 mg/dl. Instructions written and given to patient. * Follow up with diabetic education within 1 week (3) Hypertension Diagnosis: Secondary Plan: * Continue lisinopril 20 mg daily * Clonidine 0.1 mg every 6 hours when necessary for SBP greater than 180 or DBP greater than 100 (4) Hypothyroidism (acquired) Diagnosis: Secondary Plan: Currently on 100 g of levothyroxine daily. TSH normal at 1.23 Plan: * Continue levothyroxine 100 g daily (5) Dyslipidemia Diagnosis: Secondary Plan: Patient with history of dyslipidemia. Currently on lovastatin 20 mg daily, however has recently had cramping episodes which she believes could be related to her medication. Lipid panel normal: Triglycerides 141, cholesterol 170, LDL 95, HDL 47. Creatinine kinase normal at 68 Plan: * Holding home lovastatin (6) Depression Diagnosis: Secondary Plan: Patient with reported depression. Currently on bupropion 150 mg twice a day. Plan: * Continue bupropion 150 mg twice a day (7) Vitamin D insufficiency Diagnosis: Secondary Plan: Plan: * Continue home with vitamin D supplementation 5000 units daily (8) Nutrition, metabolism, and development symptoms Diagnosis: Secondary Plan: * Fluids: SLIV, tolerating PO well * Diet: Diabetic heart healthy diet * Electrolytes: WNL, continue to monitor (9) No contraindication to deep vein thrombosis (DVT) prophylaxis Diagnosis: Secondary Plan: * Resumed Lovenox post-op * Discontinued upon discharge Procedures I&D, wound vac placement Brief History Ms. Rosales is a 56 y/o F with a PMHx of T2DM, HTN, and depression/anxiety presenting with a R foot ulceration. She reports that this ulceration started 3 weeks ago under a callus formation on the ball of her foot. Last night she states that the wound "exploded" and changed colors from white to purple with the callus coming off. She has also noticed swelling of her R foot over the last 24 hours with some serosanguineous drainage prior to presenting to the ER. Her pain prior to presenting was an 8/10 on the plantar aspect of her R foot without radiation. She endorses anorexia, nausea, fevers, myalgias, and diaphoresis over the last 24 hours. She has neuropathy from her DM, but states that her overall felling in the RLE has not changed. Of note earlier this year she had large callus on her L foot, but also became ulcerated. She was seen by an urgent care for debridement and was prescribed Clindamycin. She was seen by her PCP, Dr. Milagros Bowman of the [facility], and was referred to ID for further management and Endocrinology for further management of DM. Her only other complaint is thigh cramps for which she is concerned about her statin medication. She is able to ambulate and rates the cramps as very mild. On ROS she reports multiple semi-formed yellow stools over the last 24 hours without any blood. She is unable to report any dietary changes or other precipitating factors that could be causing these changes in BMs. Otherwise she has no complaints and denies any SOB, chest pain, V/D, ABD pain, or calf tenderness. CBC/BMP: 01/26/17 0543 01/26/17 0543 Significant Findings Laboratory Tests Test 01/26/17 05:43 Estimat Glomerular Filtration 83 ML/MIN (>89) Rate Random Glucose 187 MG/DL (74-106) PE at Discharge GENERAL: No distress, sitting up in chair. Wound vac in place with minimal drainage. SKIN: Affected area is KEEGAN wrapped with wound-vac in place, fluid drainage small amount in wound vac container. CARDIOVASCULAR: Regular rate and rhythm without obvious murmurs, gallops, or rubs. RESPIRATORY: Clear to auscultation bilaterally with no wheezing, rhonchi or crackles. No increased work of breathing. GASTROINTESTINAL: Abdomen soft, non-tender, nondistended with positive bowel sounds. MUSCULOSKELETAL: No cyanosis or edema. NEURO/PSYCH: Awake and alert. Pleasant mood and affect. Does not appear anxious. Normal sensation to light touch in toes. Hospital Course 56 year old female with a history of type II diabetes presented with right foot ulceration. She received incision and drainage with wound vac placement by podiatry on 01/23/17. Culture from surgical specimen showed MRSA and gram negative rods. Blood cultures remained negative. She was treated with clindamycin IV ffor 7 days. She was switched to Levaquin and Flagyl, and will continue these at discharge for 2 more weeks. Tetanus booster was given. She will be provided a knee walker for help with mobility. She will take Tylenol for pain control. We discussed her diabetes extensively. dosimetrist also met with her. She will be discharged on Levemir 15 units twice daily, metformin 1000 bid, Novolin R 3 units AC plus 1 unit extra for every 50 mg/dl >180. Instructions written out for patient. She will also see intensive care unit registered nurse in one week. She has appt to follow up with podiatry and with her PCP. She will need wound vac changes 3 times a week and this will be set up for her at discharge. Pt Condition on Discharge: Good Discharge Disposition: Discharge Home Discharge Instructions DIET: Follow Instructions for: Diabetic Diet Activities you can perform: Toe Touch Weight Bearing Follow up Referrals: PCP Follow-up - 4 Weeks Podiatry - 3-5 Days with Susu Sahu DPM New Orders: Diabetic Education - 2-3 Days New Medications: Glucose Blood Test Strips (Jeffry Contour Next Blood Test Strips) 1 Katelyn Katelyn 1 STRIP .ROUTE DIRECTED #120 Ref 11 STRIP Insulin Human Regular Inj (Novolin R Inj) 1,000 Unit/10 Ml Vial 0 SQ DIRECTED sliding scale as directed Blood Sugar Management #10 Ref 0 ML Insulin Human Regular Inj (Novolin R Inj) 1,000 Unit/10 Ml Vial 3 UNITS SQ TIDAC Blood Sugar Management #1 Ref 0 INJECTION Syringe and Needle,Insulin,1Ml (Easy Touch Insulin Syringe) 1 Each Disp.syrin UNIT #60 Ref 3 ([knee walker]) UNIT #1 ([Wheel Walker w. Seat]) UNIT #1 Acetaminophen (APAP Extra Strength) 500 Mg Tab 500 MG PO Q6HR PRN FEVER >101F #90 TAB Insulin Detemir Inj (Levemir Inj) 1,000 unit/ 10 ML Vial 15 UNITS SQ Q12HR #1 VIAL Levofloxacin (Levaquin) 750 Mg Tablet 750 MG PO DAILY #13 TAB Metronidazole (Flagyl) 500 Mg Tab 500 MG PO Q8HR #41 TAB Sennosides-Docusate Sodium (Senna Plus 8.6-50 mg) 1 Tab Tab 2 TAB PO BID PRN CONSTIPATION #60 TAB Continued Medications: Cholecalciferol (Vitamin D3) 5,000 Unit Tab 5000 UNITS PO DAILY Nutritional Supplement #1 Ref 0 BOTTLE Glucose Blood Test Strips (Jeffry Contour Next Blood Test Strips) 1 Katelyn Katelyn 1 STRIP BID #60 Ref 11 STRIP Ibuprofen (Ibuprofen) 200 Mg Cap 200 MG PO Q6H PRN PAIN SCALE 1 TO 2 Ref 0 CAP Levothyroxine (Levothyroxine) 100 Mcg Tab 100 MCG PO DAILY Thyroid #90 Ref 3 TAB Lisinopril (Lisinopril) 20 Mg Tab 20 MG PO DAILY #90 Ref 0 TAB Lovastatin (Lovastatin) 20 Mg Tab 20 MG PO DAILY Cholesterol Management #90 Ref 3 TAB Metformin ER (Glucophage XR) 500 Mg Crissy 1000 MG PO twice a day With evening meal Blood Sugar Management #60 Ref 0 TAB Multiple Vitamin (Multiple Vitamin) 1 Tab 1 TAB PO DAILY Nutritional Supplement Ref 0 TAB ([contour next lancets]) 1 QID #120 Ref 11 ([contour next test]) STRIPS BID #50 Ref 15 ([Glucometer]) 1 QID check glucose qid ac and hs, keep log. Include lancets, wipes. Ref 3 ([glucose meter]) QID Contour Next Blood Glucose Meter METER ([glucose test strips]) 1 STRIPS BID #180 Ref 3 Discontinued Medications: Glipizide (Glipizide) 10 Mg Tab 10 MG PO BIDAC Take 30 minutes before a meal Blood Sugar Management #180 Ref 3 TAB Félix Buenrostro MD R2 Jan 28, 2017 3:14 pm
[2017-01-28] MEDS: ENOXAPARIN SODIUM 40 MG/0.4 ML SYRINGE SQ SCH (16:00)
[2017-01-28] MEDS ORDERED: COLL30T TOPICAL (16:57)
--- NOTE | 2017-01-28 20:26 | PD.WCN.NOT ---
Neg Pressure Wound Therapy Wound Location Wound Location: Right 1st met head Wound Description Length: 4cm Width: 4cm Depth: 0.4 Wound bed appearance: Bone visualized, ~20%granulation tissue and ~20%yellow brown slough Periwound appearance: Other (macerated) Settings Suction: 125 mmHg, Continuous Intensity: Low Other Information: Bridged, Windowpaned Foam type: Black Number of pieces: 1 Additonal Information Patient seen on for wound VAC change to home VAC prior to DC. Patient wound was measured and described above and Santyl was applied to necrotic tissue as ordered prior to black granufoam placed into wound bed [facility] Jan 28, 2017 20:26
[2017-01-31] MEDS ORDERED: NOVOLOGP2 SQ (12:23)
[2017-01-31] MEDS ORDERED: BACT800T5 PO (15:02)
[2017-02-01] MEDS ORDERED: ZOFR4TAB PO (08:26)
[2017-02-03] MEDS ORDERED: ZOFR4TAB PO (14:29)
--- NOTE | 2017-02-05 19:19 | MP ---
cc: SUSU NORWOOD DPM DATE OF SURGERY: 01/23/2017 PREOPERATIVE DIAGNOSIS: Abscess, right foot. POSTOPERATIVE DIAGNOSIS: Abscess, right foot. OPERATION: Incision and drainage of abscess right foot with wound VAC. SURGEON: Susu Norwood DPM. ADDICTION MEDICINE PHYSICIAN: Staff. PATHOLOGY: Culture, right foot. ANESTHESIA: General endotracheal anesthesia plus local consisting of 20 mL of 0.5% Marcaine plain. ESTIMATED BLOOD LOSS: 15 mL. COMPLICATIONS: None. CONDITION: Stable to post-anesthesia care unit. DISPOSITION: Non-weightbearing right foot with wound VAC changes set up. The wound will be examined again in the coming days to determine if further surgery is required versus discharge. INDICATIONS FOR THE PROCEDURE: This patient is a 56-year-old female who presented to the emergency department with a right foot ulceration. She stated that it began as a callus that ulcerated and then inserted changing colors a few days prior to admission and that she had had drainage and redness that concerned her secondary to her being diabetic and concern for infection. I discussed with the patient after ordering an MRI that showed no evidence of osteomyelitis at the time and discussed with her that we would attempt wound debridement of necrotic tissue as well as incision and drainage of the abscess in that area with wound VAC placement for limb salvage of the area, and I discussed with her that there is still a chance that she may loose the toe to inadequate soft tissue coverage and/or poor wound healing long-term. She understood the risks, benefits and indications of surgery and wanted to proceed with incision and drainage of abscess right foot with wound VAC. DESCRIPTION OF THE PROCEDURE IN DETAIL: She was seen in preop holding by myself, nursing staff and anesthesia where the correct patient, side and site were all confirmed to be correct in the right foot. She was taken back to the surgical suite, placed in supine position where attention was directed the right foot and it was prepped and draped in normal sterile fashion followed by attention directed to the right plantar hallux / first metatarsophalangeal joint area where there two areas with a bridge of questionable tissue that were necrotic to both of those areas it communicated. It was noted that the tissue bridge between the two areas was nonviable and was removed. The wound measured approximately 6 cm x 4 cm x 0.7 cm in depth to that plantar and medial first metatarsophalangeal joint area of the right foot. Following removal of necrotic tissue with a #15 blade a rongeur and a curette, a culture was taken of the right foot followed by irrigation with 3 liters of normal sterile saline followed by a wound VAC application to the area with a small Granufoam wound VAC set at 125 mmHg medium continuous. The patient tolerated procedure and anesthesia well without complications and was returned to the post-anesthesia care unit with vital signs stable and vascular status intact to the remainder of the right foot. She will be non-weightbearing to the right foot and will need wound VAC changes set up for home and IV antibiotics per infectious diseases. The patient may need further surgery in the future pending wound healing and will be followed as an outpatient upon discharge. Susu CHAN/CHRIS /3:03 PM /7:07 PM
--- NOTE | 2017-02-08 06:50 | MP ---
cc: SUSU NORWOOD DPM DATE OF SURGERY January 23, 2017 INDICATIONS FOR PROCEDURE The patient presented to the emergency department with worsening infection to the plantar medial aspect of the right foot. She developed a blister that was dark and redness around the area. MRI was performed that showed no evidence of osteomyelitis. I discussed with the patient that she needed to undergo incision and drainage of the area and she agreed to move forward with I&D of abscess right foot with a possible wound VAC. She was seen in preop holding by myself, nursing staff and Anesthesia where the correct patient, side and site were all confirmed to be correct in the right foot. He was taken back to the surgical suite, placed in supine position where the right foot was prepped and draped in normal sterile fashion. PROCEDURE After timeouts were performed as per hospital protocol, attention was directed to the right plantar medial aspect of the first metatarsophalangeal joint area. There were two areas of necrotic tissue noted to the plantar hallux and first MTP joint area that communicated with necrotic tissue. A culture was taken of the drainage necrotic tissue was all removed after an incision was made with a #15 blade to relieve all of the purulent, loculated fluid. Curettage, rongeur and #15 blade were used to excise all necrotic tissue. The residual wound measured approximately 6 cm x 4 cm x 0.7 cm in depth to the plantar and medial first MTP joint area. The wound VAC was applied and set at 125 mmHg medium continuous setting. She tolerated the procedure and anesthesia well without complications and was returned to the PACU with vital signs stable and vascular status intact to the remainder of the right foot. She will need wound VAC changes set up for home upon discharge and IV antibiotics SHORT OPERATIVE NOTE SURGEON Susu Norwood DPM [employer] Staff. PREOPERATIVE DIAGNOSIS Abscess right foot. POSTOPERATIVE DIAGNOSIS Abscess right foot. PROCEDURE I&D, abscess right foot with wound VAC. PATHOLOGY Culture right foot. ANESTHESIA General endotracheal anesthesia plus 20 mL of 0.5% Marcaine plain. ESTIMATED BLOOD LOSS 15 mL. COMPLICATIONS None. DISPOSITION Non-weightbearing right foot with wound VAC changes, set at 125 mmHg medium continuous. She will need discharge with VAC changes and IV antibiotics. Susu LAUREN /8:49 AM /6:47 AM
[2017-02-15] MEDS ORDERED: EASY1MIS7 (10:22)
[2017-02-15] MEDS ORDERED: glucose test strips (10:22)
[2017-02-15] MEDS ORDERED: NOVOLOGP2 SQ (14:33)
[2017-02-24] MEDS ORDERED: LEVEMIR SQ (12:33)
== END 2017-01-28 19:19 | disposition home or self-care (01) | DRG 872 ==
LOC: NEPC 20:21 → NEDA 23:09 → HOCB 01-22 00:23 → HOCA 01-22 12:21 → HOCB 01-22 13:20 → HOCA 01-22 13:26
PROVIDERS: ADMIT Family Medicine; ATTEND Family Medicine
PROC: 0H9MXZX Drainage of Right Foot Skin, External Approach, Diagnostic (ICD-10-PCS; principal; 2017-01-23 08:02)
DX: A41.9 Sepsis, unspecified organism (principal); E11.42 Type 2 diabetes mellitus with diabetic polyneuropathy; E11.621 Type 2 diabetes mellitus with foot ulcer; L02.611 Cutaneous abscess of right foot; L97.519 Non-pressure chronic ulcer of other part of right foot with unspecified severity; E11.65 Type 2 diabetes mellitus with hyperglycemia; I10 Essential (primary) hypertension; F32.9 Major depressive disorder, single episode, unspecified; F41.9 Anxiety disorder, unspecified; E03.9 Hypothyroidism, unspecified; E78.5 Hyperlipidemia, unspecified; Z16.24 Resistance to multiple antibiotics; E55.9 Vitamin D deficiency, unspecified; E66.9 Obesity, unspecified; L03.031 Cellulitis of right toe; B95.62 Methicillin resistant Staphylococcus aureus infection as the cause of diseases classified elsewhere; E11.628 Type 2 diabetes mellitus with other skin complications; Z79.84 Long term (current) use of oral hypoglycemic drugs; Z91.14 Patient's other noncompliance with medication regimen; Z79.4 Long term (current) use of insulin
CPT/HCPCS: 73620; 73720; 80048; 80053; 80061; 82550; 82948; 83605; 84443; 85025; 85027; 85652; 86140; 86403; 87015; 87040; 87070; 87077; 87102; 87116; 87147; 87185; 87186; 87205; 87206; 90471; 90714; 96374; 96375; A9579; J1650; J1815; J2250; J2270; J2405; J3010; J7120; L3260

== ENCOUNTER 2017-03-01 16:38 | Inpatient (IN) | payer OTHER ==
[~2017-03-01] VITALS: Ht 167.6 cm; Wt 97.5 kg
[~2017-03-01 16:38] MED LIST changes: +ACET500T13 PO; +BACT800T5 PO; -CLIN1CAP6 PO; +COLL30T TOPICAL; +EASY1MIS7; -GLIP10TA6 PO; +LEVA750T9 PO; +LEVEMIR SQ; +METR-1 PO; +NOVOLOGP2 SQ; +SENN1TAB PO; +WALKER; +ZOFR4TAB PO; +[UNRECOGNIZED DRUG - OTHER]
[2017-03-01 16:40] VITALS: BP 144/78; PULSE 105; RESP 20; TEMP 98.5; O2SAT 96
--- NOTE | 2017-03-01 17:13 | PD ---
Physical Exam Date Seen by Provider: Mar 01, 2017 Time Seen by Provider: 17:11 Narrative 56 yo female here for evaluation of right foot check up. Patient has a history of surgical wound followed by instrumentation and controls designer with wound vac in place as well. She was told today to come here to get evaluated for possible infection. States it is worst. Has not actually seen the doctor today and was called to come here because of her symptoms and possible MRI. Here in triage wound is covered with splint in place. Vitals are stable in triage. Awaiting Bed placement. Data Data Last Documented VS Vital Signs Date Time Temp Pulse Resp B/P Pulse Ox O2 Delivery O2 Flow Rate FiO2 03/01/17 16:40 98.5 105 20 144/78 96 MDM Medical Record Reviewed: Yes Supervised Visit with ROGER: Chace Baxter Mar 01, 2017 17:13
--- NOTE | 2017-03-01 18:49 | RADRPT ---
EXAM DATE/TIME: 03/01/2017 18:06 [facility] COMPARISON: No previous studies available for comparison. INDICATIONS : Right foot swelling. Patient states she had right foot surgery last month and it has started swelling . MEDICAL HISTORY : Diabetes mellitus type II. SURGICAL HISTORY : None. ENCOUNTER: Initial ACUITY: 1 day PAIN SCORE: 0/10 LOCATION: Right foot. FINDINGS: 3 views of the right foot reveal a linear density projecting over the lateral proximal forefoot soft tissues. This projects just lateral to the mid tarsal level of the fifth metatarsal on the frontal pr ojection. It is not discernible on the remaining 2 projections. This measures less than 1 mm in thick ness and approximately 6 mm in length. Surrounding soft tissues are unremarkable. There is postsurgic al changes seen involving the soft tissues just medial to the first metatarsal phalangeal joint. Dege nerative changes involving the first metatarsophalangeal joint. Spurring of the calcaneus. No fractur e or dislocation. CONCLUSION: 1. Tiny radiopaque density seen on a single projection as detailed above. I'm uncertain if this relat es to a true foreign body or if this is artifactual in nature. CT could be utilized to differentiate if clinically needed. 2. Degenerative changes without acute abnormality. 3. Postsurgical changes involve the soft tissues just medial to the first metatarsal phalangeal joint . Kurt Geiger Jr., MD on March 01, 2017 at 18:43 Board Certified Radiologist. This report was verified electronically.
--- NOTE | 2017-03-01 18:54 | PD ---
HPI Chief Complaint: Laceration/Skin Injury Time Seen by Provider: 18:00 Travel History International Travel<30 days: No Contact w/Intl Traveler<30days: No Traveled to known affect area: No History of Present Illness HPI Patient is a 56-year-old female presenting to the emergency department for evaluation of the wound her right foot. Patient had an ulceration that required incision and drainage on January [address] Sahu, since that time she completed a course of antibiotics and has a wound VAC on it. She has dressing changes 3 times a week and has been compliant with this. She presents concerned because there is redness to the right first toe and discoloration to the base of the right first toe on the plantar aspect. Patient also reports a foul odor. She denies any fevers, chills, increased pain. She states that she has been walking on it more than normal. PFSH Past Medical History Anxiety: Yes Depression: Yes Cancer: No Cardiovascular Problems: Yes Diabetes: Yes Diminished Hearing: No Endocrine: Yes Genitourinary: No Hypertension: Yes Immune Disorder: No Musculoskeletal: No Neurologic: No Psychiatric: Yes Reproductive: No Respiratory: No Immunizations Current: No Thyroid Disease: Yes ?: Not Past Surgical History Eye Surgery: Yes (BILATERAL CATARACTS ) Other Surgery: Yes Social History Alcohol Use: No Tobacco Use: No Substance Use: No Allergies-Medications (Allergen,Severity, Reaction): Coded Allergies: *MDRO Multi-Drug Resistant Organism (Verified Adverse Reaction, Unknown, MRSA, 03/01/17) MRSA (wound) - 01/21/17 Reported Meds & Prescriptions Reported Meds & Active Scripts Active Levemir Inj (Insulin Detemir) 1,000 unit/ 10 ML Vial 15 Units SQ Q12HR Novolog Inj (Insulin Aspart) 1,000 Unit/10 Ml Vial 5 Units SQ TIDAC Sliding scale dose added to prandial dose: 150 - 200 1 unit 201 - 250 2 units 251 - 300 3 units 301 - 350 4 units Santyl Topical (Collagenase) 250 Unit/Gm Oint 1 Applic TOPICAL DAILY As instructed. APAP Extra Strength (Acetaminophen) 500 Mg Tab 500 Mg PO Q6HR PRN Lisinopril 20 Mg Tab 20 Mg PO DAILY Lovastatin 20 Mg Tab 20 Mg PO DAILY Levothyroxine (Levothyroxine Sodium) 100 Mcg Tab 100 Mcg PO DAILY Reported Vitamin D3 (Cholecalciferol) 5,000 Unit Cap 5,000 Units PO DAILY Multiple Vitamin 1 Tab 1 Tab PO DAILY Ibuprofen 200 Mg Cap 200 Mg PO Q6H PRN Glucophage XR (Metformin HCl) 500 Mg Crissy 1,000 Mg PO TWICE A DAY With evening meal Review of Systems Except as stated in HPI: all other systems reviewed are Neg Musculoskeletal: Positive: Edema Skin: Positive Change in Pigmentation Physical Exam Narrative GENERAL: Well-developed, well-nourished, alert female. Resting comfortably in no acute distress. SKIN: Warm and dry. HEAD: Atraumatic. Normocephalic. EYES: Pupils equal and round. No scleral icterus. No injection or drainage. ENT: No nasal bleeding or discharge. Mucous membranes pink and moist. NECK: Trachea midline. No JVD. CARDIOVASCULAR: Regular rate and rhythm. RESPIRATORY: No accessory muscle use. Clear to auscultation. Breath sounds equal bilaterally. GASTROINTESTINAL: Abdomen soft, non-tender, nondistended. Hepatic and splenic margins not palpable. MUSCULOSKELETAL: Extremities without clubbing, cyanosis. Mild edema noted to the right first toe, wound VAC in place, days of right first toe on the plantar aspect is white, odor noted. Positive pedal pulse, brisk capillary refill NEUROLOGICAL: Awake and alert. No obvious cranial nerve deficits. Motor grossly within normal limits. Five out of 5 muscle strength in the arms and legs. Normal speech. PSYCHIATRIC: Appropriate mood and affect; insight and judgment normal. Data Data Last Documented VS Vital Signs Date Time Temp Pulse Resp B/P Pulse Ox O2 Delivery O2 Flow Rate FiO2 03/01/17 22:09 95 16 145/71 99 Room Air 03/01/17 16:40 98.5 Orders Basic Metabolic Panel (Bmp) (03/01/17 18:07) Complete Blood Count With Diff (03/01/17 18:07) Wound Culture And Gram Stain (03/01/17 18:07) Westergren Sedimentation Rate (03/01/17 18:07) C-Reactive Protein (Crp) (03/01/17 18:07) Foot, Complete ([id number]) (03/01/17 18:13) Mri Foot W&W/O Contrast (03/01/17 ) Gadodiamide Pf Inj (Omniscan Pf Inj) (03/01/17 21:25) Consult Podiatry (03/01/17 ) Piperacil-Tazo 4.5 Gm Premix (Zosyn 4.5 (03/01/17 21:48) Vancomycin Inj (Vancomycin Inj) (03/01/17 21:48) (Hub Use Only)Inp Phy Cons/Ref (03/01/17 ) Admit Order (Ed Use Only) (03/01/17 22:23) Labs Laboratory Tests Test 03/01/17 18:15 White Blood Count 10.5 TH/MM3 Red Blood Count 4.41 MIL/MM3 Hemoglobin 12.3 GM/DL Hematocrit 38.0 % Mean Corpuscular Volume 86.3 FL Mean Corpuscular Hemoglobin 27.8 PG Mean Corpuscular Hemoglobin 32.3 % Concent Red Cell Distribution Width 13.5 % Platelet Count 338 TH/MM3 Mean Platelet Volume 7.5 FL Neutrophils (%) (Auto) 60.4 % Lymphocytes (%) (Auto) 30.0 % Monocytes (%) (Auto) 7.3 % Eosinophils (%) (Auto) 1.9 % Basophils (%) (Auto) 0.4 % Neutrophils # (Auto) 6.3 TH/MM3 Lymphocytes # (Auto) 3.2 TH/MM3 Monocytes # (Auto) 0.8 TH/MM3 Eosinophils # (Auto) 0.2 TH/MM3 Basophils # (Auto) 0.0 TH/MM3 CBC Comment DIFF FINAL Differential Comment Erythrocyte Sedimentation Rate 70 mm/hr Sodium Level 134 MEQ/L Potassium Level 4.2 MEQ/L Chloride Level 101 MEQ/L Carbon Dioxide Level 22.6 MEQ/L Anion Gap 10 MEQ/L Blood Urea Nitrogen 33 MG/DL Creatinine 0.91 MG/DL Estimat Glomerular Filtration 64 ML/MIN Rate Random Glucose 181 MG/DL Calcium Level 9.8 MG/DL C-Reactive Protein 2.60 MG/DL MDM Medical Decision Making Medical Screen Exam Complete: Yes Emergency Medical Condition: Yes Medical Record Reviewed: Yes Interpretation(s) Vital Signs Date Time Temp Pulse Resp B/P Pulse Ox O2 Delivery O2 Flow Rate FiO2 03/01/17 16:40 98.5 105 20 144/78 96 Differential Diagnosis Cellulitis versus osteomyelitis versus sepsis versus other Narrative Course Patient's a 56-year-old female presenting to the emergency department evaluation of a right foot wound. Patient has a history of an ulceration, and I &D performed on 01/23/[address] Sahu. She was sent here for evaluation by her advanced practice rn. Patient states that she has noticed becoming more red and painful. Labs and imaging ordered and pending. Patient's vital signs are stable, she is afebrile. She has been compliant with dressing changes and wound VAC. CBC is unremarkable, sedimentation rate is 70, CRP 2.6, BUN 33 area Initial foot x-ray shows postsurgical changes to the soft tissues just medial to the first metatarsophalangeal joint. Discussed with Dr. Sahu the results of the x-ray and labs, she requested an MRI of the right foot to be performed. Order placed. Radiologist Dr. Geiger, called with the preliminary reading that showed osteomyelitis at the head of the first metatarsal. This was discussed with Dr. Sahu who recommended patient be admitted to medicine. Vancomycin and Zosyn ordered, discussed with Yoni SINGLETON, who accepted admission for Dr. Cooper. Admit orders placed. Discussed the results of labs and imaging with patient. Diagnosis Primary Impression: Osteomyelitis Qualified Code: M86.9 - Osteomyelitis of right foot, unspecified type Admitting Information Admitting Physician Requests: Admit Condition: Stable Agustina Jung Mar 01, 2017 18:54
[2017-03-01 18:59] LABS: AUTOMATED NEUTROPHIL # 6.3 TH/MM3 (1.8-7.7); BASOPHIL % 0.4 % (0.0-2.0); EOSINOPHIL # 0.2 TH/MM3 (0-0.4); EOSINOPHIL % 1.9 % (0.0-4.0); HEMO FLAGS DIFF FINAL; LYMPHOCYTE # 3.2 TH/MM3 (1.0-4.8); MEAN CELL VOLUME 86.3 FL (80.0-100.0); MEAN CORPUSCULAR HEMOGLOBIN 27.8 PG (27.0-34.0); MEAN CORPUSCULAR HGB CONC 32.3 % (32.0-36.0); MONO % 7.3 % (0.0-8.0); NEUT % 60.4 % (16.0-70.0); PLATELET COUNT 338 TH/MM3 (150-450); RED BLOOD COUNT 4.41 MIL/MM3 (4.00-5.30); RED CELL DISTRIBUTION WIDTH 13.5 % (11.6-17.2); WHITE BLOOD COUNT 10.5 TH/MM3 (4.0-11.0)
[2017-03-01 19:04] VITALS: BP 125/60; PULSE 88; RESP 16; O2SAT 98
[2017-03-01] MEDS ORDERED: CHOL5000 PO (19:11)
[2017-03-01 19:19] LABS: BICARBONATE 22.6 MEQ/L (21.0-32.0); POTASSIUM 4.2 MEQ/L (3.5-5.1)
[2017-03-01] MEDS ORDERED: GADODIAMIDE PF 287 MG/ML 5 ML VIAL (for RAD MRI) IV ONE (21:25)
[2017-03-01] MEDS ORDERED: VANCOMYCIN INJ 1,000 MG in SODIUM CHLOR 0.9% 250 ML INJ 250 ML IV STA (21:48)
[2017-03-01] MEDS ORDERED: PIPERACIL-TAZO 4.5 GM PREMIX 100 ML IV STA (21:48)
[2017-03-01 22:09] VITALS: BP 145/71; PULSE 95; RESP 16; O2SAT 99
--- NOTE | 2017-03-01 23:14 | RADRPT ---
EXAM DATE/TIME: 03/01/2017 20:40 [facility] COMPARISON: FOOT RIGHT COMPLETE ([id number]), March 01, 2017, 18:06. MRI FOOT RIGHT W & W/O CONTRAST, January 22, 2017, 12:25. INDICATIONS : Osteomyelitis. Right, first toe swelling and discoloration. Wound on medial side, near head of the first metatarsal. CONTRAST: 20 cc Omniscan (gadodiamide) IV MEDICAL HISTORY : Hypertension. Diabetes. SURGICAL HISTORY : Cataracts. ENCOUNTER: Subsequent ACUITY: 1 month PAIN SCORE: 5/10 LOCATION: Right foot TECHNIQUE: Multiplanar, multisequence MRI examination was performed without contrast and after the intravenous a dministration of gadolinium. FINDINGS: There is worsening soft tissue swelling/induration of the great toe and including the medial forefoot around the head and neck of the first metatarsal. There is patchy but fairly diffuse periosteal reac tion of the proximal phalanx of the great tail and also the proximal portions of the distal phalanx. There is soft tissue ulceration down to bone and an underlying area of cortical destruction is seen m edially of the first metatarsal head and there is abnormal T2 and T1 signal extending into the medull abdiel space of the bone at the neck/distal shaft junction region, series 4 image 14. This ulceration al so extends down to the tibial sesamoid which, incidentally is bipartite. Both segments of the bone ap pear involved. There is an effusion and synovitis of the first metatarsophalangeal joint. CONCLUSION: 1. Worsening soft tissue ulceration, edema and induration of the great toe and around the metatarsal head. There are signal changes quite convincing for osteomyelitis distally of the first metatarsal in volving the head and neck and also the tibial sesamoid. Osteomyelitis is also likely at the base of t he great toe proximal phalanx. 2. There is an effusion and synovitis of the first metatarsophalangeal joint, potentially septic. 3. No drainable abscess. 4. Comparison radiograph this evening shows potential needlelike foreign body adjacent to the mid sha ft of the fifth metatarsal. This is not clearly substantiated on the MRI. It may have been artifactua l on the x-rays. Madan Ramos MD on March 01, 2017 at 23:04 Board Certified Radiologist. This report was verified electronically.
[2017-03-01] MEDS ORDERED: BISACODYL 10 MG SUPP RECTAL PRN (23:15)
[2017-03-01] MEDS ORDERED: LACTULOSE SYRUP 20 GM/30 ML CUP PO PRN (23:15)
[2017-03-01] MEDS ORDERED: MAGNESIUM HYDROXIDE SUSP 30 ML CUP PO PRN (23:15)
[2017-03-01] MEDS ORDERED: SODIUM CHLORIDE 0.9% FLUSH 10 ML FLUSH IV FLUSH PRN (23:15)
[2017-03-01] MEDS ORDERED: NALOXONE HCL 0.4 MG/ML AMP IV PRN (23:15)
[2017-03-01] MEDS ORDERED: SENNOSIDES 8.6 MG TAB PO PRN (23:15)
[2017-03-02] MEDS: HEPARIN SODIUM - SQ 10,000 UNITS/ML VIAL SQ SCH ×3 (00:28→16:00)
[2017-03-02] MEDS: SODIUM CHLOR 0.9% 1000 ML INJ 1,000 ML IV SCH ×3 (00:28→21:50)
[2017-03-02 02:18] VITALS: BP 98/58; PULSE 77; RESP 16; TEMP 98; O2SAT 94
[2017-03-02] MEDS ORDERED: DEXTROSE 50% IN WATER 50 ML VIAL(D50) IV PRN (04:30)
[2017-03-02] MEDS ORDERED: VANCOMYCIN INJ 1,000 MG in SODIUM CHLOR 0.9% 250 ML INJ 250 ML IV SCH (04:30)
[2017-03-02] MEDS ORDERED: GLUCAGON 1 MG/ML VIAL OTHER PRN (04:30)
[2017-03-02] MEDS ORDERED: Vancomycin Consult Pharmacy 1 EA OTHER SCH (04:30)
[2017-03-02] MEDS: LEVOTHYROXINE SODIUM 100 MCG TAB PO SCH (05:31)
[2017-03-02] MEDS: INSULIN ASPART SUPPLEMENTAL SCALE SQ SCH ×4 (05:31→21:43)
[2017-03-02] MEDS: PIPERACIL-TAZO 3.375 GM PREMIX 50 ML IV SCH ×3 (05:31→17:37)
[2017-03-02 06:50] LABS: AUTOMATED NEUTROPHIL # 5.4 TH/MM3 (1.8-7.7); BASOPHIL % 0.5 % (0.0-2.0); EOSINOPHIL # 0.2 TH/MM3 (0-0.4); EOSINOPHIL % 1.9 % (0.0-4.0); HEMATOCRIT 37.2 % (35.0-46.0); HEMO FLAGS DIFF FINAL; LYMPH % 29.1 % (9.0-44.0); LYMPHOCYTE # 2.6 TH/MM3 (1.0-4.8); MEAN CELL VOLUME 85.9 FL (80.0-100.0); MEAN CORPUSCULAR HEMOGLOBIN 27.9 PG (27.0-34.0); MEAN CORPUSCULAR HGB CONC 32.5 % (32.0-36.0); MONO % 7.4 % (0.0-8.0); NEUT % 61.1 % (16.0-70.0); PLATELET COUNT 327 TH/MM3 (150-450); RED BLOOD COUNT 4.33 MIL/MM3 (4.00-5.30); RED CELL DISTRIBUTION WIDTH 13.6 % (11.6-17.2); WHITE BLOOD COUNT 8.8 TH/MM3 (4.0-11.0)
[2017-03-02 07:14] LABS: BICARBONATE 26.5 MEQ/L (21.0-32.0)
[2017-03-02 08:00] VITALS: BP_SYST 155; BP_DIAS 65; BP_DIAS 80; PULSE 66; PULSE 85; RESP 20; TEMP 96.3; TEMP 97.3; O2SAT 97; O2SAT 98
[2017-03-02] MEDS: SODIUM CHLORIDE 0.9% FLUSH 10 ML FLUSH IV FLUSH SCH ×2 (09:00→21:51)
[2017-03-02] MEDS: COLLAGENASE OINT 30 GM TUBE TOPICAL SCH (09:00)
[2017-03-02] MEDS ORDERED: DOCUSATE SODIUM 50 MG/SENNA 8.6 MG TAB PO SCH (09:00)
--- NOTE | 2017-03-02 09:04 | HHI.HP ---
[facility] Service Family Medicine Primary Care Physician Steph Bowman MD Admission Diagnosis OSTEOMYELITIS Diagnoses: International Travel<30 Days: No Contact w/Intl Traveler<30days: No Known Affected Area: No History of Present Illness 56-year-old female with type 2 diabetes and chronic plantar ulcer on her right foot which has been previously operated on by podiatry on January 23. She is known to podiatry, Dr. Barrera who has been helping her with wound care. She was placed on antibiotics and a wound VAC and getting dressing changes every Tuesday. She presented on 03/01 with erythema on the first right toe and discoloration to the base of the right first toe on the plantar aspect. She felt like there was something off and wrong with this starting yesterday around 2 PM. 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 MRI is positive for osteomyelitis. Patient denies fever, chills, pain. Denies shortness of breath, nausea, vomiting. (Sky Bowman MD R2) Review of Systems Constitutional: DENIES: Diaphoretic episodes, Fatigue, Fever Eyes: DENIES: Blurred vision, Diplopia Ears, nose, mouth, throat: DENIES: Tinnitus, Hearing loss Respiratory: DENIES: Apneas, Cough Cardiovascular: DENIES: Chest pain, Palpitations Gastrointestinal: DENIES: Abdominal pain, Black stools Hematologic/lymphatic: DENIES: Bruising, Lymphadenopathy Immunologic/allergic: DENIES: Eczema, Urticaria Neurologic: COMPLAINS OF: Abnormal gait, DENIES: Headache Psychiatric: DENIES: Anxiety, Confusion (Sky Bowman MD R2) Past Family Social History Past Medical History Overdose in a suicide attempt at age 11 because of incest Left wrist fracture age 9 Frozen shoulder on the left resolved with physical therapy and swimming Hypertension Type 2 diabetes Past Surgical History Bilateral cataracts 2010 cosmetic surgery left cheek. Reported Medications Reported Meds & Active Scripts Active Levemir Inj (Insulin Detemir) 1,000 unit/ 10 ML Vial 15 Units SQ Q12HR Novolog Inj (Insulin Aspart) 1,000 Unit/10 Ml Vial 5 Units SQ TIDAC Sliding scale dose added to prandial dose: 150 - 200 1 unit 201 - 250 2 units 251 - 300 3 units 301 - 350 4 units Santyl Topical (Collagenase) 250 Unit/Gm Oint 1 Applic TOPICAL DAILY As instructed. APAP Extra Strength (Acetaminophen) 500 Mg Tab 500 Mg PO Q6HR PRN Lisinopril 20 Mg Tab 20 Mg PO DAILY Lovastatin 20 Mg Tab 20 Mg PO DAILY Levothyroxine (Levothyroxine Sodium) 100 Mcg Tab 100 Mcg PO DAILY Reported Vitamin D3 (Cholecalciferol) 5,000 Unit Cap 5,000 Units PO DAILY Multiple Vitamin 1 Tab 1 Tab PO DAILY Ibuprofen 200 Mg Cap 200 Mg PO Q6H PRN Glucophage XR (Metformin HCl) 500 Mg Crissy 1,000 Mg PO TWICE A DAY With evening meal (Sky Bowman MD R2) Allergies: Coded Allergies: *MDRO Multi-Drug Resistant Organism (Verified Adverse Reaction, Unknown, MRSA, 03/01/17) MRSA (wound) - 01/21/17 Active Ordered Medications Active Medications Bisacodyl (Dulcolax Supp) 10 mg DAILY PRN RECTAL; Start 03/01/17 at 23:15 Cholecalciferol (Vitamin D3) 5,000 units DAILY PO; Start 03/02/17 at 09:00 Collagenase (Santyl Oint) 1 applic DAILY TOPICAL; Start 03/02/17 at 09:00 Dextrose (D50w (Vial) Inj) 50 ml UNSCH PRN IV; Start 03/02/17 at 04:30 Gadodiamide 19 ml 19 ml STK-MED ONCE IV Last administered on 03/01/17 21:25; Admin Dose 19 ML; Start 03/01/17 at 21:25; Stop 03/01/17 at 21:26; Status DC Glucagon 1 mg 1 mg UNSCH PRN OTHER; Start 03/02/17 at 04:30 Heparin Sodium (Porcine) (Heparin Inj) 5,000 units Q8H SQ Last administered on 00:28; Admin Dose 5,000 UNITS; Start 03/02/17 at 00:00 Insulin Detemir (Levemir Inj) 15 units Q12HR SQ; Start 03/02/17 at 09:00 Lactulose (Lactulose Liq) 30 ml DAILY PRN PO; Start 03/01/17 at 23:15 Levothyroxine Sodium (Synthroid) 100 mcg DAILY@06 PO Last administered on 05:31; Admin Dose 100 MCG; Start 03/02/17 at 06:00 Lisinopril (Prinivil) 20 mg DAILY PO; Start 03/02/17 at 09:00 Magnesium Hydroxide (Milk Of Félix Vick) 30 ml Q12H PRN PO; Start 03/01/17 at 23:15 Miscellaneous Information SPECIFIC LAB TO BE DRAWN:VANCOMYCIN TROUGH DATE TO... ONCE ONCE .XX; Start 03/03/17 at 21:45; Stop 03/03/17 at 21:46 Multivitamins (Theragran) 1 tab DAILY PO; Start 03/02/17 at 09:00 Naloxone HCl (Narcan Inj) 0.4 mg UNSCH PRN IV; Start 03/01/17 at 23:15 Ondansetron HCl (Zofran Inj) 4 mg Q6H PRN IVP; Start 03/01/17 at 23:15 Pharmacy Profile Note 0 ml @ 0 mls/hr UNSCH OTHER; Start 03/02/17 at 04:30 Piperacillin Sod/ Tazobactam Sod 50 ml @ 100 mls/hr Q6H IV Last administered on 03/02/17 05:31; Admin Dose 100 MLS/HR; Start 03/02/17 at 05:00 Pravastatin Sodium (Pravachol) 20 mg DAILY PO; Start 03/02/17 at 09:00 Senna/Docusate Sodium (Mckenna-Colace) 1 tab BID PO; Start 03/02/17 at 09:00 Sennosides (Senokot) 17.2 mg Q12H PRN PO; Start 03/01/17 at 23:15 Sodium Chloride (NS 1000 ml Inj) 1,000 ml @ 100 mls/hr Q10H IV Last administered on 03/02/17 00:28; Admin Dose 100 MLS/HR; Start 03/01/17 at 23:10 Sodium Chloride (NS Flush) 2 ml BID IV FLUSH; Start 03/02/17 at 09:00 Sodium Chloride (NS Flush) 2 ml UNSCH PRN IV FLUSH; Start 03/01/17 at 23:15 Vancomycin HCl 1000 mg/Sodium Chloride 250 ml @ 250 mls/hr Q24H IV; Start 03/02 at 04:30; Stop 03/02/17 at 04:35; Status DC Vancomycin HCl/ Sodium Chloride (Vancomycin Inj/ NS 500 ml Inj) 517.5 ml @ 250 mls/hr Q12H IV; Start 03/02/17 at 10:00 Family History father at age 83 of emphysema, he also had type 2 diabetes and multiple cardiac caths. He was on hospice Mother living at 85 with elevated cholesterol and depression Brother age 57 with bipolar disorder from whom she is estranged Brother age 51 with hypertension, probably alcoholic Family history is positive for diabetes in her paternal grandmother, heart disease in her paternal aunt and uncle, paternal aunt of sudden NV. Hypertension in her mother, paternal great-grandfather committed suicide. Alcohol is in her brother, depression on both sides of the family. Paternal grandmother had colon cancer and paternal aunt had breast cancer bilaterally. 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 She travels annually overseas, usually to [place]. Rare alcohol Smoked socially in college over 30 years ago 2-3 caffeine drinks daily Exercise walking and swimming which she has suspended since she experienced these symptoms. Mormonism: She is spiritual Sexual preference: Male, none since 8 years ago. (Sky Bowman MD R2) Physical Exam Vital Signs Vital Signs Date Time Temp Pulse Resp B/P Pulse Ox O2 Delivery O2 Flow Rate FiO2 03/02/17 08:00 96.3 66 20 155/65 98 03/02/17 02:18 98.0 77 16 98/58 94 03/01/17 22:09 95 16 145/71 99 Room Air 03/01/17 19:04 88 16 125/60 98 Room Air 03/01/17 16:40 98.5 105 20 144/78 96 Physical Exam GENERAL: This is a well-nourished, well-developed patient, in no apparent distress. SKIN: Right Foot wrapped in preop dressing planning on surgery per podiatry HEAD: Atraumatic. Normocephalic. No temporal or scalp tenderness. EYES: Pupils equal round and reactive. Extraocular motions intact. No scleral icterus. No injection or drainage. ENT: Nose without bleeding, purulent drainage or septal hematoma. Throat without erythema, tonsillar hypertrophy or exudate. Uvula midline. Airway patent. NECK: Trachea midline. No JVD or lymphadenopathy. Supple, nontender, no meningeal signs. CARDIOVASCULAR: Regular rate and rhythm without murmurs, gallops, or rubs. RESPIRATORY: Clear to auscultation. Breath sounds equal bilaterally. No wheezes , rales, or rhonchi. GASTROINTESTINAL: Abdomen soft, non-tender, nondistended. No hepato-splenomegaly , or palpable masses. No guarding. MUSCULOSKELETAL: Extremities without clubbing, cyanosis, or edema. No calf tenderness. Negative Homans sign bilaterally. NEUROLOGICAL: Awake and alert. Cranial nerves II through XII intact. Motor and sensory grossly within normal limits. Five out of 5 muscle strength in all muscle groups. Normal speech. Laboratory Laboratory Tests Test 03/01/17 03/02/17 18:15 06:28 White Blood Count 10.5 8.8 Red Blood Count 4.41 4.33 Hemoglobin 12.3 12.1 Hematocrit 38.0 37.2 Mean Corpuscular Volume 86.3 85.9 Mean Corpuscular Hemoglobin 27.8 27.9 Mean Corpuscular Hemoglobin 32.3 32.5 Concent Red Cell Distribution Width 13.5 13.6 Platelet Count 338 327 Mean Platelet Volume 7.5 7.3 Neutrophils (%) (Auto) 60.4 61.1 Lymphocytes (%) (Auto) 30.0 29.1 Monocytes (%) (Auto) 7.3 7.4 Eosinophils (%) (Auto) 1.9 1.9 Basophils (%) (Auto) 0.4 0.5 Neutrophils # (Auto) 6.3 5.4 Lymphocytes # (Auto) 3.2 2.6 Monocytes # (Auto) 0.8 0.7 Eosinophils # (Auto) 0.2 0.2 Basophils # (Auto) 0.0 0.0 CBC Comment DIFF FINAL DIFF FINAL Differential Comment Erythrocyte Sedimentation Rate 70 Sodium Level 134 139 Potassium Level 4.2 4.0 Chloride Level 101 103 Carbon Dioxide Level 22.6 26.5 Anion Gap 10 10 Blood Urea Nitrogen 33 23 Creatinine 0.91 0.75 Estimat Glomerular Filtration 64 80 Rate Random Glucose 181 146 Calcium Level 9.8 9.3 C-Reactive Protein 2.60 Date/Time Procedure Status Source Growth 03/01/17 23:50 Aerobic Blood Culture Received Blood Peripheral Pending 03/01/17 23:50 Anaerobic Blood Culture Received Blood Peripheral Pending 03/01/17 18:10 Gram Stain Received Wound Foot Pending 03/01/17 18:10 Wound Culture Received Wound Foot Pending (Sky Bowman MD R2) Result Diagram: 03/02/17 0628 03/02/17 0628 Imaging Last Impressions Foot X-Ray 03/01/17 1813 Signed Impressions: Service Date/Time: Wednesday, March 01, 2017 18:06 - CONCLUSION: 1. Tiny radiopaque density seen on a single projection as detailed above. I'm uncertain if this relates to a true foreign body or if this is artifactual in nature. CT could be utilized to differentiate if clinically needed. 2. Degenerative changes without acute abnormality. 3. Postsurgical changes involve the soft tissues just medial to the first metatarsal phalangeal joint. Kurt Geiger Jr., MD Foot MRI 03/01/17 0000 Signed Impressions: Service Date/Time: Wednesday, March 01, 2017 20:40 - CONCLUSION: 1. Worsening soft tissue ulceration, edema and induration of the great toe and around the metatarsal head. There are signal changes quite convincing for osteomyelitis distally of the first metatarsal involving the head and neck and also the tibial sesamoid. Osteomyelitis is also likely at the base of the great toe proximal phalanx. 2. There is an effusion and synovitis of the first metatarsophalangeal joint, potentially septic. 3. No drainable abscess. 4. Comparison radiograph this evening shows potential needlelike foreign body adjacent to the mid shaft of the fifth metatarsal. This is not clearly substantiated on the MRI. It may have been artifactual on the x-rays. Madan Ramos MD (Sky Bowman MD R2) Assessment and Plan Assessment and Plan 56-year-old female with diabetes presents with osteomyelitis right first metatarsal and tibial sesamoid. Patient to be admitted for podiatry consultation and antibiotic management. Code Status Full Discussed Condition With Dr. Bowman (Sky Bowman MD R2) Attending Attestation Patient seen and examined. Case reviewed and discussed with the resident team. Agree with plan of care as discussed with me and documented in the resident note. (Steph Bowman MD) Problem List: (1) Osteomyelitis Status: Acute Plan: MRI shows worsening soft tissue ulceration, edema, induration of the great toe around the metatarsal head. Signal changes convincing of osteomyelitis of the first metatarsal involving the head and neck and also the tibial sesamoid. Podiatry consultation Continue Vanco and Zosyn (started 03/01- Blood culture 03/01: Wound culture 03/01: Follow bone pathology as it becomes available. Pain management: Morphine 4 mg IV pain 6-10 (2) Diabetes mellitus type 2 in obese Status: Chronic Plan: Holding home metformin Levemir 15 units twice a day Sliding scale insulin (3) Hypothyroidism Status: Chronic Plan: Continue home Synthroid 100 g by mouth daily (4) FEN/PPX Status: Acute Plan: Fluids: Normal saline at 100 mL's per hour Electrolytes: Monitor and replace as needed Nutrition: Currently nothing by mouth. Diabetic diet after procedure Prophylaxis: Heparin 5000 units every 8 hours (being held for procedure) Chronic medical conditions: Hyperlipidemia-continue lovastatin Hypertension: Continue lisinopril 20 mg Vitamin D deficiency: Continue cholecalciferol (Sky Bowman MD R2) Physician Certification 2 Midnight Certification Type: Admission for Inpatient Services Order for Inpatient Services The services are ordered in accordance with Medicare regulations or non- Medicare payer requirements, as applicable. In the case of services not specified as inpatient-only, they are appropriately provided as inpatient services in accordance with the 2-midnight benchmark. Estimated LOS (days): 2 days is the estimated time the patient will need to remain in the hospital, assuming treatment plan goals are met and no additional complications. Post-Hospital Plan: Home (Sky Bowman MD R2) Problem Qualifiers (1) Osteomyelitis: Qualified Code: M86.9 - Osteomyelitis of right foot, unspecified type (2) Hypothyroidism: Qualified Code: E03.9 - Acquired hypothyroidism Sky Bowman MD R2 Mar 02, 2017 09:04 Steph Bowman MD Mar 02, 2017 11:44
[2017-03-02] MEDS: LISINOPRIL 20 MG TAB PO SCH (09:29)
[2017-03-02] MEDS: PRAVASTATIN SOD 20 MG TAB PO SCH (09:29)
[2017-03-02] MEDS: MULTIVITAMIN TAB PO SCH (09:29)
[2017-03-02] MEDS: CHOLECALCIFEROL (VIT D3) 5000 UNIT CAP PO SCH (09:29)
[2017-03-02] MEDS ORDERED: MORPHINE SULFATE 4 MG/ML INJ IV PRN (09:30)
[2017-03-02] MEDS: INSULIN DETEMIR 100 UNITS/ML VIAL SQ SCH ×2 (09:31→19:56)
--- NOTE | 2017-03-02 09:49 | HHI.FPPN ---
Subjective Remarks Pt. seen, examined and discussed with Dr. Mark Bowman. This is a 56 yo female known to me with T2DM, and recently diabetic foot ulcer right foot. Was hospitalized in January, had debridement of the ulcer by podiatry, and was sent home with home health for wound dressing changes and was on a wound vac. She had done well and her wound was granulating in until February 28 when her dressing fell off early in the morning. This occurred again on March 01 and she began to notice increasing redness and a foul odor. 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 Please see H&P for this admission for additional historical details including past, family, social history and ROS. 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 Nonsmoker. Some mild constipation but no complaint of pain. No other complaints. Objective Vitals Vital Signs Date Time Temp Pulse Resp B/P Pulse Ox O2 Delivery O2 Flow Rate FiO2 03/02/17 08:00 97.3 85 20 155/80 97 03/02/17 02:18 98.0 77 16 98/58 94 03/01/17 22:09 95 16 145/71 99 Room Air 03/01/17 19:04 88 16 125/60 98 Room Air 03/01/17 16:40 98.5 105 20 144/78 96 I/O 03/01/17 03/01/17 03/01/17 03/02/17 03/02/17 03/02/17 07:00 15:00 23:00 07:00 15:00 23:00 Intake Total 600 ml Balance 600 ml Intake IV Total 600 ml # Voids 2 # Bowel Movements 0 Result Diagram: 03/02/17 0628 03/02/17 0628 Other Results Laboratory Tests Test 03/01/17 03/02/17 18:15 06:28 White Blood Count 10.5 TH/MM3 8.8 TH/MM3 Red Blood Count 4.41 MIL/MM3 4.33 MIL/MM3 Hemoglobin 12.3 GM/DL 12.1 GM/DL Hematocrit 38.0 % 37.2 % Mean Corpuscular Volume 86.3 FL 85.9 FL Mean Corpuscular Hemoglobin 27.8 PG 27.9 PG Mean Corpuscular Hemoglobin 32.3 % 32.5 % Concent Red Cell Distribution Width 13.5 % 13.6 % Platelet Count 338 TH/MM3 327 TH/MM3 Mean Platelet Volume 7.5 FL 7.3 FL Neutrophils (%) (Auto) 60.4 % 61.1 % Lymphocytes (%) (Auto) 30.0 % 29.1 % Monocytes (%) (Auto) 7.3 % 7.4 % Eosinophils (%) (Auto) 1.9 % 1.9 % Basophils (%) (Auto) 0.4 % 0.5 % Neutrophils # (Auto) 6.3 TH/MM3 5.4 TH/MM3 Lymphocytes # (Auto) 3.2 TH/MM3 2.6 TH/MM3 Monocytes # (Auto) 0.8 TH/MM3 0.7 TH/MM3 Eosinophils # (Auto) 0.2 TH/MM3 0.2 TH/MM3 Basophils # (Auto) 0.0 TH/MM3 0.0 TH/MM3 CBC Comment DIFF FINAL DIFF FINAL Differential Comment Erythrocyte Sedimentation Rate 70 mm/hr Sodium Level 134 MEQ/L 139 MEQ/L Potassium Level 4.2 MEQ/L 4.0 MEQ/L Chloride Level 101 MEQ/L 103 MEQ/L Carbon Dioxide Level 22.6 MEQ/L 26.5 MEQ/L Anion Gap 10 MEQ/L 10 MEQ/L Blood Urea Nitrogen 33 MG/DL 23 MG/DL Creatinine 0.91 MG/DL 0.75 MG/DL Estimat Glomerular Filtration 64 ML/MIN 80 ML/MIN Rate Random Glucose 181 MG/DL 146 MG/DL Calcium Level 9.8 MG/DL 9.3 MG/DL C-Reactive Protein 2.60 MG/DL Imaging Last Impressions Foot X-Ray 03/01/17 1813 Signed Impressions: Service Date/Time: Wednesday, March 01, 2017 18:06 - CONCLUSION: 1. Tiny radiopaque density seen on a single projection as detailed above. I'm uncertain if this relates to a true foreign body or if this is artifactual in nature. CT could be utilized to differentiate if clinically needed. 2. Degenerative changes without acute abnormality. 3. Postsurgical changes involve the soft tissues just medial to the first metatarsal phalangeal joint. Kurt Geiger Jr., MD Foot MRI 03/01/17 0000 Signed Impressions: Service Date/Time: Wednesday, March 01, 2017 20:40 - CONCLUSION: 1. Worsening soft tissue ulceration, edema and induration of the great toe and around the metatarsal head. There are signal changes quite convincing for osteomyelitis distally of the first metatarsal involving the head and neck and also the tibial sesamoid. Osteomyelitis is also likely at the base of the great toe proximal phalanx. 2. There is an effusion and synovitis of the first metatarsophalangeal joint, potentially septic. 3. No drainable abscess. 4. Comparison radiograph this evening shows potential needlelike foreign body adjacent to the mid shaft of the fifth metatarsal. This is not clearly substantiated on the MRI. It may have been artifactual on the x-rays. Madan Ramos MD Objective Remarks O. CONSTITUTIONAL/GEN: normally nourished, in NAD. EYES: conjunctiva normal, PERRLA, EOMI. ENT: Mouth and pharynx normal. NECK: supple LUNGS: clear A-P, respiratory effort is normal. CARDIOVASCULAR: RR without murmur or gallop. No significant edema. GI/ABD: soft without masses, without organomegaly. BS + NEURO: No focal deficits. SKIN: color normal, no rashes noted. Dressing on right distal foot not disturbed. Cultures of the wound and blood were obtained in ED. HEME/LYMPH: no bruising, petechia or significant adenopathy MUSC: back is normal in appearance. Extremities are normal in appearance, with the exception of the right foot. PSYCH/MENTAL STATUS: Alert and oriented x 3. A/P Assessment and Plan 56 yo female with diabetic foot wound, probable osteomyelitis. Plan will depend on surgical procedure, cultures. Case management will be consulted. Attending Attestation Patient seen and examined. Case reviewed and discussed with the resident team. Agree with plan of care as discussed with me and documented in the resident note. Problem List: (1) Osteomyelitis Status: Acute (2) Diabetes mellitus type 2 in obese Status: Chronic (3) Hypothyroidism Status: Chronic Problem Qualifiers (1) Osteomyelitis: Qualified Code: M86.9 - Osteomyelitis of right foot, unspecified type (2) Hypothyroidism: Qualified Code: E03.9 - Acquired hypothyroidism Steph Bowman MD Mar 02, 2017 09:48
[2017-03-02] MEDS: VANCOMYCIN INJ 1,750 MG in SODIUM CHLORID 0.9% 500 ML INJ 500 ML IV SCH ×4 (11:29→22:36)
[2017-03-02 12:00] VITALS: BP 122/59; PULSE 84; RESP 20; TEMP 97.9; O2SAT 97
[2017-03-02] MEDS ORDERED: LACTATED RINGER'S 1000 ML INJ 1,000 ML IV ONE (12:00)
[2017-03-02] MEDS ORDERED: PHENYLEPH/NS 1000 MCG/10 ML SYR IV ONE (12:00)
[2017-03-02] MEDS ORDERED: ONDANSETRON HCL 4 MG/2 ML VIAL IV PUSH ONE (12:00)
[2017-03-02] MEDS ORDERED: PROPOFOL 200 MG/20 ML AMP IV ONE (12:00)
[2017-03-02] MEDS ORDERED: ePHEDrine/NS 25 MG/5 ML SYR IV ONE (12:00)
[2017-03-02 15:28] VITALS: BP 141/80; PULSE 90; RESP 16; TEMP 98.7; O2SAT 95
--- NOTE | 2017-03-02 18:34 | PD.CONS ---
History of Present Illness Service Podiatry Consult Requested By ED Reason for Consult R foot infection/osteomyelitis Primary Care Physician Steph Bowman MD Diagnoses: History of Present Illness Patient had abscess R great toe area approx 6 weeks ago. She underwent I&D of abscess and has had wound vac dressing changes since then. MRI at that admission showed no evidence of osteomyelitis. She has noticed deterioration of the wound with increasing redness and dark tissue to medial aspect. Past Family Social History Allergies: Coded Allergies: *MDRO Multi-Drug Resistant Organism (Verified Adverse Reaction, Unknown, MRSA, 03/01/17) MRSA (wound) - 01/21/17 Past Medical History Overdose in a suicide attempt at age 11 because of incest Left wrist fracture age 9 Frozen shoulder on the left resolved with physical therapy and swimming Hypertension Type 2 diabetes Past Surgical History Bilateral cataracts 2010 cosmetic surgery left cheek. I&D R foot Active Ordered Medications Current Medications Medications (Trade) Dose Ordered Sig/Gary Route Start Time Stop Time Status Last Admin (NS 1000 ml Inj) 1,000 ml @ 100 mls/hr Q10H IV 03/01/17 23:10 03/02/17 09:42 (NS Flush) 2 ml UNSCH PRN IV FLUSH 03/01/17 23:15 (NS Flush) 2 ml BID IV FLUSH 03/02/17 09:00 (Zofran Inj) 4 mg Q6H PRN IVP 03/01/17 23:15 (Heparin Inj) 5,000 units Q8H SQ 03/02/17 00:00 03/02/17 00:28 (Narcan Inj) 0.4 mg UNSCH PRN IV 03/01/17 23:15 (Milk Of Magnesia Liq) 30 ml Q12H PRN PO 03/01/17 23:15 (Senokot) 17.2 mg Q12H PRN PO 03/01/17 23:15 (Dulcolax Supp) 10 mg DAILY PRN RECTAL 03/01/17 23:15 (Lactulose Liq) 30 ml DAILY PRN PO 03/01/17 23:15 (Vitamin D3) 5,000 units DAILY PO 03/02/17 09:00 03/02/17 09:29 (Santyl Oint) 1 applic DAILY TOPICAL 03/02/17 09:00 (Levemir Inj) 15 units Q12HR SQ 03/02/17 09:00 03/02/17 09:31 (Synthroid) 100 mcg DAILY@06 PO 03/02/17 06:00 03/02/17 05:31 (Prinivil) 20 mg DAILY PO 03/02/17 09:00 03/02/17 09:29 (Pravachol) 20 mg DAILY PO 03/02/17 09:00 03/02/17 09:29 (Theragran) 1 tab DAILY PO 03/02/17 09:00 03/02/17 09:29 (D50w (Vial) Inj) 50 ml UNSCH PRN IV 03/02/17 04:30 Glucagon 1 mg 1 mg UNSCH PRN OTHER 03/02/17 04:30 Piperacillin Sod/ Tazobactam Sod 50 ml @ 100 mls/hr Q6H IV 03/02/17 05:00 03/02/17 17:37 Pharmacy Profile Note 0 ml @ 0 mls/hr UNSCH OTHER 03/02/17 04:30 (Vancomycin Inj/ NS 500 ml Inj) 517.5 ml @ 250 mls/hr Q12H IV 03/02/17 10:00 03/02/17 11:29 Miscellaneous Information SPECIFIC LAB TO BE DRAWN:VANCOMYCIN TROUGH DATE TO... ONCE ONCE .XX 03/03/17 21:45 03/03/17 21:46 (Mckenna-Colace) 2 tab BID PO 03/02/17 21:00 (Morphine Inj) 4 mg Q3H PRN IV 03/02/17 09:30 Family History father at age 83 of emphysema, he also had type 2 diabetes and multiple cardiac caths. He was on hospice Mother living at 85 with elevated cholesterol and depression Brother age 57 with bipolar disorder from whom she is estranged Brother age 51 with hypertension, probably alcoholic Family history is positive for diabetes in her paternal grandmother, heart disease in her paternal aunt and uncle, paternal aunt of sudden CT. Hypertension in her mother, paternal great-grandfather committed suicide. Alcohol is in her brother, depression on both sides of the family. Paternal grandmother had colon cancer and paternal aunt had breast cancer bilaterally. Denies TB or kidney disease Social History Rare alcohol Smoked socially in college over 30 years ago 2-3 caffeine drinks daily Physical Exam Vital Signs Vital Signs Date Time Temp Pulse Resp B/P Pulse Ox O2 Delivery O2 Flow Rate FiO2 03/02/17 15:28 98.7 90 16 141/80 95 03/02/17 12:00 97.9 84 20 122/59 97 03/02/17 08:00 97.3 85 20 155/80 97 03/02/17 02:18 98.0 77 16 98/58 94 03/01/17 22:09 95 16 145/71 99 Room Air 03/01/17 19:04 88 16 125/60 98 Room Air Physical Exam R medial 1st MTP joint capsule necrotic. No schuyler purulence noted. mild peripheral erythema. Palpable pedal pulses. Laboratory Laboratory Tests Test 03/02/17 06:28 White Blood Count 8.8 Red Blood Count 4.33 Hemoglobin 12.1 Hematocrit 37.2 Mean Corpuscular Volume 85.9 Mean Corpuscular Hemoglobin 27.9 Mean Corpuscular Hemoglobin 32.5 Concent Red Cell Distribution Width 13.6 Platelet Count 327 Mean Platelet Volume 7.3 Neutrophils (%) (Auto) 61.1 Lymphocytes (%) (Auto) 29.1 Monocytes (%) (Auto) 7.4 Eosinophils (%) (Auto) 1.9 Basophils (%) (Auto) 0.5 Neutrophils # (Auto) 5.4 Lymphocytes # (Auto) 2.6 Monocytes # (Auto) 0.7 Eosinophils # (Auto) 0.2 Basophils # (Auto) 0.0 CBC Comment DIFF FINAL Differential Comment Sodium Level 139 Potassium Level 4.0 Chloride Level 103 Carbon Dioxide Level 26.5 Anion Gap 10 Blood Urea Nitrogen 23 Creatinine 0.75 Estimat Glomerular Filtration 80 Rate Random Glucose 146 Calcium Level 9.3 Date/Time Procedure Status Source Growth 03/01/17 23:50 Aerobic Blood Culture - Preliminary Resulted Blood Peripheral NO GROWTH IN 1 DAY 03/01/17 23:50 Anaerobic Blood Culture - Preliminary Resulted Blood Peripheral NO GROWTH IN 1 DAY 03/01/17 18:10 Gram Stain - Final Resulted Wound Foot 03/01/17 18:10 Wound Culture - Preliminary Resulted Staph Sp Coagulase Positive Result Diagram: 03/02/1762703/02/17627 Imaging Last Impressions Foot X-Ray 03/01/171812 Signed Impressions: Service Date/Time: Wednesday, March 01, 2017 18:06 - CONCLUSION: 1. Tiny radiopaque density seen on a single projection as detailed above. I'm uncertain if this relates to a true foreign body or if this is artifactual in nature. CT could be utilized to differentiate if clinically needed. 2. Degenerative changes without acute abnormality. 3. Postsurgical changes involve the soft tissues just medial to the first metatarsal phalangeal joint. Kurt Geiger Jr., MD Foot MRI 03/01/17 0000 Signed Impressions: Service Date/Time: Wednesday, March 01, 2017 20:40 - CONCLUSION: 1. Worsening soft tissue ulceration, edema and induration of the great toe and around the metatarsal head. There are signal changes quite convincing for osteomyelitis distally of the first metatarsal involving the head and neck and also the tibial sesamoid. Osteomyelitis is also likely at the base of the great toe proximal phalanx. 2. There is an effusion and synovitis of the first metatarsophalangeal joint, potentially septic. 3. No drainable abscess. 4. Comparison radiograph this evening shows potential needlelike foreign body adjacent to the mid shaft of the fifth metatarsal. This is not clearly substantiated on the MRI. It may have been artifactual on the x-rays. Madan Ramos MD Assessment and Plan Assessment and Plan R foot osteomyelitis 1st distal metatarsal and hallux To OR for partial 1st ray amputation R foot this evening NPO Susu Sahu DPM Mar 02, 2017 18:34
[2017-03-02] MEDS: DOCUSATE SODIUM 50 MG/SENNA 8.6 MG TAB PO SCH (19:56)
[2017-03-02 20:04] VITALS: BP 115/80; PULSE 78; RESP 16; TEMP 98.5; O2SAT 100
--- NOTE | 2017-03-02 22:20 | HHI.PR ---
Immediate Post Op Note Procedure Date: Mar 02, 2017 Pre Op Diagnosis: Osteomyelitis R distal 1st metatarsal and hallux Post Op Diagnosis: same Surgeon: Susu Sahu DPM Senior Administrative Services Officer(s): Staff Procedure: Right partial 1st ray amputation Findings: Consistent with diagnosis. wound to medial 1st MTP joint area with necrotic capsule, no schuyler purulence noted. Bone cut midshaft 1st metatarsal and distal 1st metatarsal and hallux amputated and sent to pathology. Bone from residual 1st metatarsal sent as biopsy. healthy bleeding tissue remains with no evidence of purulence or necrosis. Irrigation with 1L NS, followed by culture taken prior to primary closure with 2 -0 and 3-0 nylon suture, followed by dressing with xeroform, 4x4, abd, cast padding, latasha R foot. NWB R foot. Await bone biopsy to determine length of need for IV antibiotics. Complications: none Specimen(s) removed: 1. partial first ray R foot to pathology 2. biopsy of bone residual 1st metatarsal R foot 3. culture R foot prior to closure Estimated blood loss: minimal Anesthesia: LMA Drains: None Tourniquet time (min at mmHg) 12min @ 250mmHg R calf Patient to: PACU Patient Condition: Good Date/Time of Procedure: SEE SURGICAL CARE RECORD Susu Sahu DPM Mar 02, 2017 22:20
[2017-03-02] MEDS ORDERED: MIDAZOLAM HCL 2 MG/2 ML VIAL ONE (23:28)
[2017-03-02] MEDS ORDERED: fentaNYL CITRATE 250 MCG/5 ML AMP ONE (23:28)
[2017-03-02] MEDS ORDERED: *morphine SULFATE 8 MG/ML PERIprocedure ONLY ONE ×2 (23:42→23:55)
--- NOTE | 2017-03-03 00:03 | RADRPT ---
EXAM DATE/TIME: 03/02/2017 23:27 [facility] COMPARISON: MRI FOOT RIGHT W & W/O CONTRAST, March 01, 2017, 20:40. FOOT RIGHT COMPLETE ([id number]), March 01, 2017, 18:06. INDICATIONS : Post op right foot. MEDICAL HISTORY : Peripheral vascular disease. SURGICAL HISTORY : None. ENCOUNTER: Subsequent ACUITY: 4 - 6 days PAIN SCORE: 6/10 LOCATION: Right lateral FINDINGS: 3 views of the right foot. There is been interval amputation of the great toe to the level of the pro ximal metatarsal shaft. Previous possible foreign body lateral to the fifth metatarsal shaft is no lo nger seen. No other significant interval change. Calcaneal spurs again seen. CONCLUSION: Status post great toe amputation at the level of the proximal metatarsal shaft. Favian Shabazz MD on March 02, 2017 at 23:59 Board Certified Radiologist. This report was verified electronically.
[2017-03-03] MEDS ORDERED: DO NOT ADM ANY ANTICOAGULANT DRUGS PRN (00:15)
[2017-03-03 01:11] VITALS: BP 109/57; PULSE 87; RESP 18; TEMP 97.2; O2SAT 95
[2017-03-03] MEDS: ONDANSETRON HCL 4 MG/2 ML VIAL IVP PRN (01:14)
[2017-03-03 04:00] VITALS: BP 122/68; PULSE 73; RESP 18; TEMP 97.4; O2SAT 97
[2017-03-03] MEDS: SODIUM CHLOR 0.9% 1000 ML INJ 1,000 ML IV SCH (05:13)
[2017-03-03] MEDS: PIPERACIL-TAZO 3.375 GM PREMIX 50 ML IV SCH ×5 (05:13→21:28)
[2017-03-03] MEDS ORDERED: PROCHLORPERAZINE INJ 10 MG/2 ML VIAL IV PUSH PRN (05:45)
[2017-03-03] MEDS: LEVOTHYROXINE SODIUM 100 MCG TAB PO SCH (06:27)
[2017-03-03] MEDS: INSULIN ASPART SUPPLEMENTAL SCALE SQ SCH ×4 (06:32→21:37)
[2017-03-03 07:01] LABS: AUTOMATED NEUTROPHIL # 5.1 TH/MM3 (1.8-7.7); BASOPHIL % 0.5 % (0.0-2.0); EOSINOPHIL # 0.2 TH/MM3 (0-0.4); EOSINOPHIL % 2.4 % (0.0-4.0); HEMATOCRIT 35.1 % (35.0-46.0); HEMO FLAGS DIFF FINAL; LYMPH % 22.4 % (9.0-44.0); LYMPHOCYTE # 1.7 TH/MM3 (1.0-4.8); MEAN CELL VOLUME 86.1 FL (80.0-100.0); MEAN CORPUSCULAR HEMOGLOBIN 28.3 PG (27.0-34.0); MEAN CORPUSCULAR HGB CONC 32.8 % (32.0-36.0); MONO % 8.2 % (0.0-8.0); NEUT % 66.5 % (16.0-70.0); PLATELET COUNT 250 TH/MM3 (150-450); RED BLOOD COUNT 4.08 MIL/MM3 (4.00-5.30); RED CELL DISTRIBUTION WIDTH 13.6 % (11.6-17.2); WHITE BLOOD COUNT 7.6 TH/MM3 (4.0-11.0)
[2017-03-03 07:23] LABS: BICARBONATE 26.3 MEQ/L (21.0-32.0); POTASSIUM 4.3 MEQ/L (3.5-5.1)
[2017-03-03 08:00] VITALS: BP 138/64; PULSE 72; RESP 16; TEMP 97.9; O2SAT 97
[2017-03-03] MEDS: COLLAGENASE OINT 30 GM TUBE TOPICAL SCH (09:00)
[2017-03-03] MEDS: SODIUM CHLORIDE 0.9% FLUSH 10 ML FLUSH IV FLUSH SCH ×2 (09:00→21:45)
[2017-03-03] MEDS: PRAVASTATIN SOD 20 MG TAB PO SCH (09:10)
[2017-03-03] MEDS: LISINOPRIL 20 MG TAB PO SCH (09:10)
[2017-03-03] MEDS: DOCUSATE SODIUM 50 MG/SENNA 8.6 MG TAB PO SCH ×2 (09:10→21:27)
[2017-03-03] MEDS: MULTIVITAMIN TAB PO SCH (09:11)
[2017-03-03] MEDS: HEPARIN SODIUM - SQ 10,000 UNITS/ML VIAL SQ SCH ×4 (09:11→21:27)
[2017-03-03] MEDS: CHOLECALCIFEROL (VIT D3) 5000 UNIT CAP PO SCH (09:11)
[2017-03-03] MEDS: ACETAMINOPHEN/HYDROcodone 325 MG/5 MG TAB PO PRN ×2 (09:12→23:57)
[2017-03-03] MEDS: INSULIN DETEMIR 100 UNITS/ML VIAL SQ SCH ×2 (09:16→21:00)
[2017-03-03] MEDS: VANCOMYCIN INJ 1,750 MG in SODIUM CHLORID 0.9% 500 ML INJ 500 ML IV SCH ×2 (09:23→23:52)
--- NOTE | 2017-03-03 09:50 | HHI.FPPN ---
Subjective Remarks Patient is doing well this morning. She is having some pain at the amputation site and is requesting Aroda. 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 She denies fever, chills. She is having some nausea which is helped by medication. She believes her nauseous from the morphine. Denies abdominal pain, shortness of breath. (Sky Bowman MD R2) Objective Vitals Vital Signs Date Time Temp Pulse Resp B/P Pulse Ox O2 Delivery O2 Flow Rate FiO2 03/03/17 08:00 97.9 72 16 138/64 97 03/03/17 04:00 97.4 73 18 122/68 97 03/03/17 01:11 97.2 87 18 109/57 95 03/03/17 00:00 97.9 87 19 107/58 98 Nasal Cannula 2 03/02/17 23:45 89 20 110/62 98 Nasal Cannula 2 03/02/17 23:30 91 21 119/60 99 Nasal Cannula 2 03/02/17 23:16 98.9 103 20 134/64 97 Nasal Cannula 2 03/02/17 20:04 98.5 78 16 115/80 100 03/02/17 15:28 98.7 90 16 141/80 95 03/02/17 12:00 97.9 84 20 122/59 97 I/O 03/02/17 03/02/17 03/02/17 03/03/17 03/03/17 03/03/17 07:00 15:00 23:00 07:00 15:00 23:00 Intake Total 600 ml 816 ml 1458 ml Output Total 620 ml Balance 600 ml 816 ml 838 ml Intake Oral 120 ml IV Total 600 ml 816 ml 738 ml Other 600 ml Output Urine Total 600 ml Estimated Blood Loss 20 ml # Voids 2 4 # Bowel Movements 0 3 (Sky Bowman MD R2) Result Diagram: 03/03/17 0642 03/03/17 0642 Objective Remarks O. CONSTITUTIONAL/GEN: normally nourished, in NAD. EYES: conjunctiva normal, PERRLA, EOMI. ENT: Mouth and pharynx normal. NECK: supple LUNGS: clear A-P, respiratory effort is normal. CARDIOVASCULAR: RR without murmur or gallop. No significant edema. GI/ABD: soft without masses, without organomegaly. BS + NEURO: No focal deficits. SKIN: color normal, no rashes noted. Dressing on right distal foot not disturbed. Cultures of the wound and blood were obtained in ED. HEME/LYMPH: no bruising, petechia or significant adenopathy MUSC: Right foot with good sensation. Neurovascularly intact. Well wrapped per podiatry. PSYCH/MENTAL STATUS: Alert and oriented x 3. (Sky Bowman MD R2) A/P Assessment and Plan 56-year-old female with diabetes presents with osteomyelitis right first metatarsal and tibial sesamoid. Patient to be admitted for podiatry consultation and antibiotic management. Postoperative day #1 partial first ray amputation Discharge Planning Pending podiatry recommendations (Sky Bowman MD R2) Attending Attestation Patient seen and examined. Case reviewed and discussed with the resident team. Agree with plan of care as discussed with me and documented in the resident note. (Steph Bowman MD) Problem List: (1) Osteomyelitis Status: Acute Plan: Postop day #1 partial first ray amputation. Podiatry consultation Continue Vanco and Zosyn (started 03/01- Labs: Blood culture 03/01: No growth to date Wound culture 03/01: Coag positive staph Bone pathology: Pending PT consult Incentive spirometry Pain management: Aroda pain 6-10 (2) Diabetes mellitus type 2 in obese Status: Chronic Plan: Holding home metformin Levemir 15 units twice a day Medium Sliding scale insulin (3) Hypothyroidism Status: Chronic Plan: Continue home Synthroid 100 g by mouth daily (4) FEN/PPX Status: Acute Plan: Fluids: Tolerating by mouth Electrolytes: Monitor and replace as needed Nutrition: Diabetic diet Prophylaxis: Heparin 5000 units every 8 hours (being held for procedure) Chronic medical conditions: Hyperlipidemia-continue lovastatin Hypertension: Continue lisinopril 20 mg Vitamin D deficiency: Continue cholecalciferol (Sky Bowman MD R2) Problem Qualifiers (1) Osteomyelitis: Qualified Code: M86.9 - Osteomyelitis of right foot, unspecified type (2) Hypothyroidism: Qualified Code: E03.9 - Acquired hypothyroidism Sky Bowman MD R2 Mar 03, 2017 09:50 Steph Bowman MD Mar 03, 2017 11:52
[2017-03-03 12:00] VITALS: BP 93/53; PULSE 74; RESP 16; TEMP 96.1; O2SAT 98
[2017-03-03 16:00] VITALS: BP 143/67; PULSE 89; RESP 17; TEMP 96.7; O2SAT 99
--- NOTE | 2017-03-03 17:50 | PD.POD ---
Subjective Podiatric Problems POD #1 s/p R partial first ray amputation (03/02/17 [facility]) Past Med/Surg/Social History Past Medical History Endocrine: REPORTS HX OF: Diabetes mellitus Cardiovascular: REPORTS HX OF: Hyperlipidemia, Hypertension Past Surgical History Gynecologic: DENIES HX OF: Hysterectomy Breast: DENIES HX OF: Mastectomy, bilateral, Mastectomy, left, Mastectomy, right Social History Smoking Status: Former Smoker Objective Vital Signs Vital Signs Date Time Temp Pulse Resp B/P Pulse Ox O2 Delivery O2 Flow Rate FiO2 03/03/17 16:00 96.7 89 17 143/67 99 03/03/17 12:00 96.1 74 16 93/53 98 03/03/17 08:00 97.9 72 16 138/64 97 03/03/17 04:00 97.4 73 18 122/68 97 03/03/17 01:11 97.2 87 18 109/57 95 03/03/17 00:00 97.9 87 19 107/58 98 Nasal Cannula 2 03/02/17 23:45 89 20 110/62 98 Nasal Cannula 2 03/02/17 23:30 91 21 119/60 99 Nasal Cannula 2 03/02/17 23:16 98.9 103 20 134/64 97 Nasal Cannula 2 03/02/17 20:04 98.5 78 16 115/80 100 Coded Allergies: *MDRO Multi-Drug Resistant Organism (Verified Adverse Reaction, Unknown, MRSA, 03/03/17) MRSA (wound) - 01/21/17, MRSA (foot) 03/01/17 Medications and IVs Current Medications Medications (Trade) Dose Ordered Sig/Gary Route Start Time Stop Time Status Last Admin (NS Flush) 2 ml UNSCH PRN IV FLUSH 03/01/17 23:15 (NS Flush) 2 ml BID IV FLUSH 03/02/17 09:00 03/02/17 21:51 (Zofran Inj) 4 mg Q6H PRN IVP 03/01/17 23:15 03/03/17 01:14 (Heparin Inj) 5,000 units Q8H SQ 03/02/17 00:00 03/03/17 09:11 (Narcan Inj) 0.4 mg UNSCH PRN IV 03/01/17 23:15 (Milk Of Magnesia Liq) 30 ml Q12H PRN PO 03/01/17 23:15 (Senokot) 17.2 mg Q12H PRN PO 03/01/17 23:15 (Dulcolax Supp) 10 mg DAILY PRN RECTAL 03/01/17 23:15 (Lactulose Liq) 30 ml DAILY PRN PO 03/01/17 23:15 (Vitamin D3) 5,000 units DAILY PO 03/02/17 09:00 03/03/17 09:11 (Santyl Oint) 1 applic DAILY TOPICAL 03/02/17 09:00 (Levemir Inj) 15 units Q12HR SQ 03/02/17 09:00 03/03/17 09:16 (Synthroid) 100 mcg DAILY@06 PO 03/02/17 06:00 03/03/17 06:27 (Prinivil) 20 mg DAILY PO 03/02/17 09:00 03/03/17 09:10 (Pravachol) 20 mg DAILY PO 03/02/17 09:00 03/03/17 09:10 (Theragran) 1 tab DAILY PO 03/02/17 09:00 03/03/17 09:11 (D50w (Vial) Inj) 50 ml UNSCH PRN IV 03/02/17 04:30 Glucagon 1 mg 1 mg UNSCH PRN OTHER 03/02/17 04:30 Piperacillin Sod/ Tazobactam Sod 50 ml @ 100 mls/hr Q6H IV 03/02/17 05:00 03/03/17 13:02 Pharmacy Profile Note 0 ml @ 0 mls/hr UNSCH OTHER 03/02/17 04:30 (Vancomycin Inj/ NS 500 ml Inj) 517.5 ml @ 250 mls/hr Q12H IV 03/02/17 10:00 03/03/17 09:23 Miscellaneous Information SPECIFIC LAB TO BE DRAWN:VANCOMYCIN TROUGH DATE TO... ONCE ONCE .XX 03/03/17 21:45 03/03/17 21:46 (Mckenna-Colace) 2 tab BID PO 03/02/17 21:00 03/03/17 09:10 Miscellaneous Information ALL NURSING DEPARTME... UNSCH PRN .XX 03/03/17 00:15 03/04/17 00:14 ([place] 5-325 Mg) 1 tab Q4H PRN PO 03/03/17 09:00 03/03/17 09:12 (Restoril) 15 mg HS PRN PO 03/03/17 18:45 Other Results Last Impressions Foot X-Ray 03/02/17 0000 Signed Impressions: Service Date/Time: Thursday, March 02, 2017 23:27 - CONCLUSION: Status post great toe amputation at the level of the proximal metatarsal shaft. Favian Shabazz MD Foot MRI 03/01/17 0000 Signed Impressions: Service Date/Time: Wednesday, March 01, 2017 20:40 - CONCLUSION: 1. Worsening soft tissue ulceration, edema and induration of the great toe and around the metatarsal head. There are signal changes quite convincing for osteomyelitis distally of the first metatarsal involving the head and neck and also the tibial sesamoid. Osteomyelitis is also likely at the base of the great toe proximal phalanx. 2. There is an effusion and synovitis of the first metatarsophalangeal joint, potentially septic. 3. No drainable abscess. 4. Comparison radiograph this evening shows potential needlelike foreign body adjacent to the mid shaft of the fifth metatarsal. This is not clearly substantiated on the MRI. It may have been artifactual on the x-rays. Madan Ramos MD Physical Exam Remarks R foot bandage clean, dry, intact Assessment & Plan A/P S/p R partial 1st ray amputation (03/02/17 [facility]) NWB R foot Await bone biopsy results to determine if long-term IV antibiotics required Susu Sahu DPM Mar 03, 2017 17:50
[2017-03-03 20:00] VITALS: BP 139/63; PULSE 105; RESP 18; TEMP 99; O2SAT 98
[2017-03-03] MEDS: TEMAZEPAM 15 MG CAP PO PRN (21:27)
[2017-03-03] MEDS ORDERED: PHARMACY ORDERED LAB ONE (21:45)
[2017-03-04] VITALS: BP 134/66; PULSE 105; RESP 18; TEMP 99.2; O2SAT 99
[2017-03-04] MEDS ORDERED: MORPHINE SULFATE 8 MG/ML INJ IV PUSH PRN (01:45)
[2017-03-04] MEDS ORDERED: KETOROLAC TROMETHAMINE 30 MG/ML (IVP) VIAL IVP PRN ×2 (01:45)
[2017-03-04] MEDS ORDERED: IBUPROFEN 400 MG TAB PO PRN (01:45)
[2017-03-04] MEDS ORDERED: NALOXONE HCL 0.4 MG/ML AMP IV PRN (01:45)
[2017-03-04] MEDS: ACETAMINOPHEN 1000 MG/100 ML VIAL IV SCH ×2 (03:19→08:11)
[2017-03-04] MEDS: PIPERACIL-TAZO 3.375 GM PREMIX 50 ML IV SCH ×3 (04:43→16:33)
[2017-03-04] MEDS: LEVOTHYROXINE SODIUM 100 MCG TAB PO SCH (04:43)
[2017-03-04 06:08] LABS: AUTOMATED NEUTROPHIL # 6.1 TH/MM3 (1.8-7.7); BASOPHIL % 0.3 % (0.0-2.0); EOSINOPHIL # 0.3 TH/MM3 (0-0.4); EOSINOPHIL % 2.6 % (0.0-4.0); HEMO FLAGS DIFF FINAL; LYMPH % 24.5 % (9.0-44.0); LYMPHOCYTE # 2.4 TH/MM3 (1.0-4.8); MEAN CELL VOLUME 85.1 FL (80.0-100.0); MEAN CORPUSCULAR HEMOGLOBIN 28.5 PG (27.0-34.0); MEAN CORPUSCULAR HGB CONC 33.5 % (32.0-36.0); MONO % 10.5 % (0.0-8.0); NEUT % 62.1 % (16.0-70.0); PLATELET COUNT 285 TH/MM3 (150-450); RED BLOOD COUNT 3.75 MIL/MM3 (4.00-5.30); RED CELL DISTRIBUTION WIDTH 13.1 % (11.6-17.2); WHITE BLOOD COUNT 9.9 TH/MM3 (4.0-11.0)
[2017-03-04] MEDS: INSULIN ASPART SUPPLEMENTAL SCALE SQ SCH ×4 (06:22→21:00)
[2017-03-04 06:28] LABS: BICARBONATE 23.6 MEQ/L (21.0-32.0); POTASSIUM 3.8 MEQ/L (3.5-5.1)
[2017-03-04 08:00] VITALS: BP 116/60; PULSE 68; RESP 16; TEMP 97; O2SAT 98
[2017-03-04] MEDS: CHOLECALCIFEROL (VIT D3) 5000 UNIT CAP PO SCH (08:11)
[2017-03-04] MEDS: PRAVASTATIN SOD 20 MG TAB PO SCH (08:11)
[2017-03-04] MEDS: SODIUM CHLORIDE 0.9% FLUSH 10 ML FLUSH IV FLUSH SCH ×2 (08:12→19:32)
[2017-03-04] MEDS: MULTIVITAMIN TAB PO SCH (08:12)
[2017-03-04] MEDS: LISINOPRIL 20 MG TAB PO SCH (08:12)
[2017-03-04] MEDS: HEPARIN SODIUM - SQ 10,000 UNITS/ML VIAL SQ SCH ×2 (08:12→16:33)
[2017-03-04] MEDS: DOCUSATE SODIUM 50 MG/SENNA 8.6 MG TAB PO SCH ×2 (08:12→22:07)
[2017-03-04] MEDS: COLLAGENASE OINT 30 GM TUBE TOPICAL SCH (08:13)
[2017-03-04] MEDS: SODIUM CHLOR 0.9% 1000 ML INJ 1,000 ML IV SCH ×2 (08:20→16:32)
[2017-03-04] MEDS ORDERED: ACETAMINOPHEN/HYDROcodone 325 MG/5 MG TAB PO PRN (08:45)
[2017-03-04] MEDS: INSULIN DETEMIR 100 UNITS/ML VIAL SQ SCH ×2 (09:00→22:11)
--- NOTE | 2017-03-04 09:11 | HHI.FPPN ---
Subjective Remarks Patient had increased pain last night and did not sleep very well. She would like to have her [place] increased. She also states she has not been on Wellbutrin while in the hospital and would like that restarted. She denies fever, chills, nausea, vomiting. 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 She would also like to be back on metformin. (Sky Bowman MD R2) Objective Vitals Vital Signs Date Time Temp Pulse Resp B/P Pulse Ox O2 Delivery O2 Flow Rate FiO2 03/04/17 08:00 97.0 68 16 116/60 98 03/04/17 00:00 99.2 105 18 134/66 99 03/03/17 20:00 99.0 105 18 139/63 98 03/03/17 16:00 96.7 89 17 143/67 99 03/03/17 12:00 96.1 74 16 93/53 98 I/O 03/03/17 03/03/17 03/03/17 03/04/17 03/04/17 03/04/17 07:00 15:00 23:00 07:00 15:00 23:00 Intake Total 1458 ml 1237 ml 296 ml 669 ml Output Total 620 ml 500 ml 450 ml 850 ml Balance 838 ml 737 ml -154 ml -181 ml Intake Oral 120 ml 240 ml 240 ml 120 ml IV Total 738 ml 997 ml 56 ml 549 ml Other 600 ml Output Urine Total 600 ml 500 ml 450 ml 850 ml Estimated Blood Loss 20 ml # Bowel Movements 0 0 0 (Sky Bowman MD R2) Result Diagram: 03/04/17 0509 03/04/17 0509 Objective Remarks O. CONSTITUTIONAL/GEN: normally nourished, in NAD. EYES: conjunctiva normal, PERRLA, EOMI. ENT: Mouth and pharynx normal. NECK: supple LUNGS: clear A-P, respiratory effort is normal. CARDIOVASCULAR: RR without murmur or gallop. No significant edema. GI/ABD: soft without masses, without organomegaly. BS + NEURO: No focal deficits. SKIN: color normal, no rashes noted. Dressing on right distal foot not disturbed. Cultures of the wound and blood were obtained in ED. HEME/LYMPH: no bruising, petechia or significant adenopathy MUSC: Right foot with good sensation. Neurovascularly intact. Well wrapped per podiatry. PSYCH/MENTAL STATUS: Alert and oriented x 3. (Sky Bowman MD R2) A/P Assessment and Plan 56-year-old female with diabetes presents with osteomyelitis right first metatarsal and tibial sesamoid. Patient to be admitted for podiatry consultation and antibiotic management. Postoperative day #1 partial first ray amputation Discharge Planning Pending podiatry recommendations PT recommends home with home health PT. Patient may need bedside commode ( Sky Bowman MD R2) Attending Attestation Patient seen and examined. Case reviewed and discussed with the resident team. Agree with plan of care as discussed with me and documented in the resident note. (Steph Bowman MD) Problem List: (1) Osteomyelitis Status: Acute Plan: Postop day #2 partial first ray amputation. Podiatry consultation Continue Vanco and Zosyn (started 03/01- Labs: Blood culture 03/01: No growth to date Wound culture 03/01: MRSA Bone pathology: Pending PT consult Incentive spirometry Pain management: [place] 10 mg pain 7-10, [place] 5 mg pain 4-6. Morphine for breakthrough pain. Careful with NSAIDs currently as the patient has AK I (2) RODRÍGUEZ (acute kidney injury) Status: Acute Plan: Creatinine mildly increased this morning Careful with nephrotoxins, currently on vancomycin. Careful with NSAIDs Continue IV fluids at 100 mL per hour (3) Diabetes mellitus type 2 in obese Status: Chronic Plan: Holding home metformin Levemir 15 units twice a day High Sliding scale insulin per the patient's request (4) Hypothyroidism Status: Chronic Plan: Continue home Synthroid 100 g by mouth daily (5) FEN/PPX Status: Acute Plan: Fluids: Normal saline at 100 mL per hour Electrolytes: Monitor and replace as needed Nutrition: Diabetic diet Prophylaxis: Heparin 5000 units every 8 hours Chronic medical conditions: Hyperlipidemia-continue lovastatin Hypertension: Continue lisinopril 20 mg Vitamin D deficiency: Continue cholecalciferol (Sky Bowman MD R2) Problem Qualifiers (1) Osteomyelitis: Qualified Code: M86.9 - Osteomyelitis of right foot, unspecified type (2) Hypothyroidism: Qualified Code: E03.9 - Acquired hypothyroidism Sky Bowman MD R2 Mar 04, 2017 09:11 Steph Bowman MD Mar 04, 2017 12:00
[2017-03-04] MEDS: buPROPion HCL 75 MG TAB PO SCH ×2 (09:36→22:22)
[2017-03-04] MEDS: VANCOMYCIN INJ 1,750 MG in SODIUM CHLORID 0.9% 500 ML INJ 500 ML IV SCH (09:36)
[2017-03-04 12:00] VITALS: BP 112/61; PULSE 75; RESP 17; TEMP 96.9; O2SAT 97
[2017-03-04 16:00] VITALS: BP 139/63; PULSE 84; RESP 18; TEMP 96.5; O2SAT 100
[2017-03-04 20:00] VITALS: BP 167/72; PULSE 89; RESP 16; TEMP 96.9; O2SAT 94
[2017-03-04] MEDS ORDERED: PHARMACY ORDERED LAB ONE (21:45)
[2017-03-04] MEDS: TEMAZEPAM 15 MG CAP PO PRN (22:22)
[2017-03-04] MEDS: ACETAMINOPHEN/HYDROcodone 325 MG/10 MG TAB PO PRN (22:34)
[2017-03-05] VITALS: BP 122/64; PULSE 97; RESP 16; TEMP 97.6; O2SAT 92
[2017-03-05] MEDS: PIPERACIL-TAZO 3.375 GM PREMIX 50 ML IV SCH ×5 (00:02→22:11)
[2017-03-05] MEDS: SODIUM CHLOR 0.9% 1000 ML INJ 1,000 ML IV SCH ×3 (03:30→22:16)
[2017-03-05] MEDS: LEVOTHYROXINE SODIUM 100 MCG TAB PO SCH (05:46)
[2017-03-05] MEDS: INSULIN ASPART SUPPLEMENTAL SCALE SQ SCH ×4 (05:49→19:48)
[2017-03-05 08:00] VITALS: BP 159/76; PULSE 96; RESP 18; TEMP 96.5; O2SAT 96
[2017-03-05 08:02] LABS: AUTOMATED NEUTROPHIL # 6.6 TH/MM3 (1.8-7.7); BASOPHIL % 0.5 % (0.0-2.0); EOSINOPHIL # 0.3 TH/MM3 (0-0.4); EOSINOPHIL % 3.1 % (0.0-4.0); HEMATOCRIT 33.7 % (35.0-46.0); HEMO FLAGS DIFF FINAL; LYMPH % 21.4 % (9.0-44.0); LYMPHOCYTE # 2.1 TH/MM3 (1.0-4.8); MEAN CELL VOLUME 86.3 FL (80.0-100.0); MEAN CORPUSCULAR HEMOGLOBIN 28.6 PG (27.0-34.0); MEAN CORPUSCULAR HGB CONC 33.1 % (32.0-36.0); MONO % 7.9 % (0.0-8.0); NEUT % 67.1 % (16.0-70.0); PLATELET COUNT 288 TH/MM3 (150-450); RED BLOOD COUNT 3.91 MIL/MM3 (4.00-5.30); RED CELL DISTRIBUTION WIDTH 13.4 % (11.6-17.2); WHITE BLOOD COUNT 9.8 TH/MM3 (4.0-11.0)
[2017-03-05] MEDS ORDERED: BEDSIDE COMMODE1 MI1 (08:11)
[2017-03-05 08:22] LABS: ANION GAP 7 MEQ/L (5-15); AST (GOT) 24 U/L (15-37); BICARBONATE 21.7 MEQ/L (21.0-32.0); BLOOD UREA NITROGEN 24 MG/DL (7-18); CHLORIDE 108 MEQ/L (98-107); GLOMERULAR FILTRATION RATE 26 ML/MIN (>89); POTASSIUM 3.7 MEQ/L (3.5-5.1); SODIUM (NA) 137 MEQ/L (136-145)
[2017-03-05 08:23] LABS: ALT (GPT) 24 U/L (10-53)
[2017-03-05 08:26] LABS: ALKALINE PHOSPHATASE 52 U/L (45-117); TOTAL BILIRUBIN ADULT 0.2 MG/DL (0.2-1.0)
--- NOTE | 2017-03-05 08:55 | HHI.FPPN ---
Subjective Remarks Patient feels better this morning. She denies fever, chills, nausea, vomiting. She is currently in no pain. She had a good night's sleep last night. Denies shortness of breath. (Sky Bowman MD R2) Objective Vitals Vital Signs Date Time Temp Pulse Resp B/P Pulse Ox O2 Delivery O2 Flow Rate FiO2 03/05/17 00:00 97.6 97 16 122/64 92 03/04/17 20:00 96.9 89 16 167/72 94 03/04/17 16:00 96.5 84 18 139/63 100 03/04/17 12:00 96.9 75 17 112/61 97 I/O 03/04/17 03/04/17 03/04/17 03/05/17 03/05/17 03/05/17 07:00 15:00 23:00 07:00 15:00 23:00 Intake Total 669 ml 481 ml 1040 ml Output Total 850 ml 600 ml 1350 ml Balance -181 ml 481 ml -600 ml -310 ml Intake Oral 120 ml 240 ml 360 ml IV Total 549 ml 241 ml 680 ml Output Urine Total 850 ml 600 ml 1350 ml # Voids 0 # Bowel Movements 0 0 0 (Sky Bowman MD R2) Result Diagram: 03/05/17 0711 03/05/17 0711 Objective Remarks O. CONSTITUTIONAL/GEN: normally nourished, in NAD. EYES: conjunctiva normal, PERRLA, EOMI. ENT: Mouth and pharynx normal. NECK: supple LUNGS: clear A-P, respiratory effort is normal. CARDIOVASCULAR: RR without murmur or gallop. No significant edema. GI/ABD: soft without masses, without organomegaly. BS + NEURO: No focal deficits. SKIN: color normal, no rashes noted. Dressing on right distal foot not disturbed. Cultures of the wound and blood were obtained in ED. HEME/LYMPH: no bruising, petechia or significant adenopathy MUSC: Right foot with good sensation. Neurovascularly intact. Well wrapped per podiatry. PSYCH/MENTAL STATUS: Alert and oriented x 3. (Sky Bowman MD R2) A/P Assessment and Plan 56-year-old female with diabetes presents with osteomyelitis right first metatarsal and tibial sesamoid. Patient to be admitted for podiatry consultation and antibiotic management. Postoperative day #1 partial first ray amputation Discharge Planning Pending podiatry recommendations PT recommends home with home health PT. Patient may need bedside commode ( Sky Bowman MD R2) Attending Attestation Patient seen and examined. Case reviewed and discussed with the resident team. Agree with plan of care as discussed with me and documented in the resident note. (Steph Bowman MD) Problem List: (1) Osteomyelitis Status: Acute Plan: Postop day #3 partial first ray amputation. Podiatry consultation Continue Vanco and Zosyn (started 03/01- Labs: Blood culture 03/01: No growth to date Wound culture 03/01: MRSA Bone pathology: Pending PT consult Incentive spirometry Pain management: [place] 10 mg pain 7-10, [place] 5 mg pain 4-6. Morphine for breakthrough pain. Careful with NSAIDs currently as the patient has AK I (2) RODRÍGUEZ (acute kidney injury) Status: Acute Plan: Creatinine worsening this morning. Possibly due to vancomycin Vancomycin adjusted by pharmacy consult, discussed case with pharmacy. Careful with nephrotoxins, currently on vancomycin. Careful with NSAIDs Continue IV fluids at 100 mL per hour Consider nephrology consult (3) Diabetes mellitus type 2 in obese Status: Chronic Plan: Holding home metformin Levemir 15 units twice a day High Sliding scale insulin per the patient's request (4) Hypothyroidism Status: Chronic Plan: Continue home Synthroid 100 g by mouth daily (5) FEN/PPX Status: Acute Plan: Fluids: Normal saline at 100 mL per hour Electrolytes: Monitor and replace as needed Nutrition: Diabetic diet Prophylaxis: Heparin 5000 units every 8 hours Chronic medical conditions: Hyperlipidemia-continue lovastatin Hypertension: Continue lisinopril 20 mg Vitamin D deficiency: Continue cholecalciferol (Sky Bowman MD R2) Problem Qualifiers (1) Osteomyelitis: Qualified Code: M86.9 - Osteomyelitis of right foot, unspecified type (2) Hypothyroidism: Qualified Code: E03.9 - Acquired hypothyroidism Sky Bowman MD R2 Mar 05, 2017 08:55 Steph Bowman MD Mar 05, 2017 11:41
[2017-03-05] MEDS: COLLAGENASE OINT 30 GM TUBE TOPICAL SCH (09:00)
[2017-03-05] MEDS: INSULIN DETEMIR 100 UNITS/ML VIAL SQ SCH ×2 (09:00→19:49)
[2017-03-05] MEDS: SODIUM CHLORIDE 0.9% FLUSH 10 ML FLUSH IV FLUSH SCH ×2 (09:00→19:46)
--- NOTE | 2017-03-05 09:38 | PD.POD ---
Subjective Podiatric Problems s/p R partial first ray amputation (03/02/17 [facility]) Past Med/Surg/Social History Past Medical History Endocrine: REPORTS HX OF: Diabetes mellitus Cardiovascular: REPORTS HX OF: Hyperlipidemia, Hypertension Past Surgical History Gynecologic: DENIES HX OF: Hysterectomy Breast: DENIES HX OF: Mastectomy, bilateral, Mastectomy, left, Mastectomy, right Social History Smoking Status: Former Smoker Objective Vital Signs Vital Signs Date Time Temp Pulse Resp B/P Pulse Ox O2 Delivery O2 Flow Rate FiO2 03/05/17 00:00 97.6 97 16 122/64 92 03/04/17 20:00 96.9 89 16 167/72 94 03/04/17 16:00 96.5 84 18 139/63 100 03/04/17 12:00 96.9 75 17 112/61 97 Coded Allergies: *MDRO Multi-Drug Resistant Organism (Verified Adverse Reaction, Unknown, MRSA, 03/03/17) MRSA (wound) - 01/21/17, MRSA (foot) 03/01/17 Medications and IVs Current Medications Medications (Trade) Dose Ordered Sig/[place] Route Start Time Stop Time Status Last Admin (NS Flush) 2 ml UNSCH PRN IV FLUSH 03/01/17 23:15 (NS Flush) 2 ml BID IV FLUSH 03/02/17 09:00 03/04/17 08:12 (Zofran Inj) 4 mg Q6H PRN IVP 03/01/17 23:15 03/03/17 01:14 (Heparin Inj) 5,000 units Q8H SQ 03/02/17 00:00 03/05/17 00:00 (Milk Of Magnesia Liq) 30 ml Q12H PRN PO 03/01/17 23:15 (Senokot) 17.2 mg Q12H PRN PO 03/01/17 23:15 (Dulcolax Supp) 10 mg DAILY PRN RECTAL 03/01/17 23:15 (Lactulose Liq) 30 ml DAILY PRN PO 03/01/17 23:15 (Vitamin D3) 5,000 units DAILY PO 03/02/17 09:00 03/04/17 08:11 (Santyl Oint) 1 applic DAILY TOPICAL 03/02/17 09:00 (Levemir Inj) 15 units Q12HR SQ 03/02/17 09:00 03/04/17 22:11 (Synthroid) 100 mcg DAILY@06 PO 03/02/17 06:00 03/05/17 05:46 (Prinivil) 20 mg DAILY PO 03/02/17 09:00 03/04/17 08:12 (Pravachol) 20 mg DAILY PO 03/02/17 09:00 03/04/17 08:11 (Theragran) 1 tab DAILY PO 03/02/17 09:00 03/04/17 08:12 (D50w (Vial) Inj) 50 ml UNSCH PRN IV 03/02/17 04:30 Glucagon 1 mg 1 mg UNSCH PRN OTHER 03/02/17 04:30 Piperacillin Sod/ Tazobactam Sod 50 ml @ 100 mls/hr Q6H IV 03/02/17 05:00 03/05/17 03:29 Pharmacy Profile Note 0 ml @ 0 mls/hr UNSCH OTHER 03/02/17 04:30 (Vancomycin Inj/ NS 500 ml Inj) 517.5 ml @ 250 mls/hr Q12H IV 03/02/17 10:00 Hold 03/04/17 09:36 (Mckenna-Colace) 2 tab BID PO 03/02/17 21:00 03/04/17 22:07 (Restoril) 15 mg HS PRN PO 03/03/17 18:45 03/04/17 22:22 (Morphine Inj) 4 mg Q3H PRN IV PUSH 03/04/17 01:45 03/04/17 04:43 Naloxone HCl 0.4 mg 0.4 mg UNSCH PRN IV 03/04/17 01:45 (NS 1000 ml Inj) 1,000 ml @ 100 mls/hr Q10H IV 03/04/17 08:00 03/05/17 03:30 ([place] 10-325 Mg) 1 tab Q4H PRN PO 03/04/17 08:45 03/04/17 22:34 ([place] 5-325 Mg) 1 tab Q4H PRN PO 03/04/17 08:45 (Wellbutrin) 150 mg Q12HR PO 03/04/17 09:00 03/04/17 22:22 Exam-Podiatry Remarks R medial foot with nylon suture intact. No drainage. No dehiscence. Assessment & Plan A/P S/p R [facility] NW[facility] R foot Await bone biopsy results to determine if long-term IV antibiotics required Changed bandage today, keep clean, dry, intact until seen in clinic next week Ok to d/c from podiatry standpoint after bone biopsy results in Susu Sahu DPM Mar 05, 2017 09:38
[2017-03-05] MEDS: LISINOPRIL 20 MG TAB PO SCH (09:54)
[2017-03-05] MEDS: MULTIVITAMIN TAB PO SCH (09:54)
[2017-03-05] MEDS: CHOLECALCIFEROL (VIT D3) 5000 UNIT CAP PO SCH (09:54)
[2017-03-05] MEDS: HEPARIN SODIUM - SQ 10,000 UNITS/ML VIAL SQ SCH ×4 (09:54→22:11)
[2017-03-05] MEDS: buPROPion HCL 75 MG TAB PO SCH ×2 (09:54→19:46)
[2017-03-05] MEDS: DOCUSATE SODIUM 50 MG/SENNA 8.6 MG TAB PO SCH ×2 (09:54→19:45)
[2017-03-05] MEDS: PRAVASTATIN SOD 20 MG TAB PO SCH (09:55)
[2017-03-05] MEDS: ONDANSETRON HCL 4 MG/2 ML VIAL IVP PRN (10:02)
[2017-03-05] MEDS: ACETAMINOPHEN/HYDROcodone 325 MG/10 MG TAB PO PRN (10:23)
[2017-03-05 12:00] VITALS: BP 162/72; PULSE 100; RESP 16; TEMP 98; O2SAT 96
[2017-03-05 16:00] VITALS: BP 135/70; PULSE 87; RESP 20; TEMP 96.3; O2SAT 96
[2017-03-05 20:00] VITALS: BP 167/79; PULSE 87; RESP 18; TEMP 99.1; O2SAT 96
[2017-03-05] MEDS: TEMAZEPAM 15 MG CAP PO PRN (22:11)
[2017-03-06] VITALS: BP 172/78; PULSE 100; RESP 20; TEMP 98.7; O2SAT 95
[2017-03-06] MEDS: PIPERACIL-TAZO 3.375 GM PREMIX 50 ML IV SCH ×2 (03:24→10:31)
[2017-03-06] MEDS: INSULIN ASPART SUPPLEMENTAL SCALE SQ SCH ×4 (06:02→21:00)
[2017-03-06] MEDS: LEVOTHYROXINE SODIUM 100 MCG TAB PO SCH (06:02)
[2017-03-06 06:39] LABS: AUTOMATED NEUTROPHIL # 10.4 TH/MM3 (1.8-7.7); BASOPHIL # 0.1 TH/MM3 (0-0.2); BASOPHIL % 0.4 % (0.0-2.0); EOSINOPHIL # 0.2 TH/MM3 (0-0.4); EOSINOPHIL % 1.3 % (0.0-4.0); HEMATOCRIT 33.8 % (35.0-46.0); HEMO FLAGS DIFF FINAL; LYMPH % 9.8 % (9.0-44.0); LYMPHOCYTE # 1.2 TH/MM3 (1.0-4.8); MEAN CELL VOLUME 85.4 FL (80.0-100.0); MEAN CORPUSCULAR HEMOGLOBIN 28.7 PG (27.0-34.0); MEAN CORPUSCULAR HGB CONC 33.6 % (32.0-36.0); MONO % 5.1 % (0.0-8.0); NEUT % 83.4 % (16.0-70.0); PLATELET COUNT 276 TH/MM3 (150-450); RED BLOOD COUNT 3.96 MIL/MM3 (4.00-5.30); RED CELL DISTRIBUTION WIDTH 13.5 % (11.6-17.2); WHITE BLOOD COUNT 12.5 TH/MM3 (4.0-11.0)
[2017-03-06 07:00] LABS: BICARBONATE 20.6 MEQ/L (21.0-32.0); POTASSIUM 4.3 MEQ/L (3.5-5.1)
[2017-03-06] MEDS ORDERED: HYDR-3583 PO (07:47)
--- NOTE | 2017-03-06 07:47 | HHI.DCPOC ---
Discharge Care Plan Diagnosis: (1) Osteomyelitis (2) RODRÍGUEZ (acute kidney injury) Goals to Promote Your Health * To prevent worsening of your condition and complications * To maintain your health at the optimal level Directions to Meet Your Goals Take your medications as prescribed Follow your dietary instruction Follow activity as directed Keep your appointments as scheduled Take your immunizations and boosters as scheduled If your symptoms worsen call your PCP, if no PCP go to Urgent Care Center or Emergency Room Smoking is Dangerous to Your Health. Avoid second hand smoke Call the 24-hour hour crisis hotline for domestic abuse at Sky Bowman MD R2 Mar 06, 2017 07:47
--- NOTE | 2017-03-06 07:50 | HHI.FF ---
Face to Face Verification Diagnosis: (1) Osteomyelitis (2) RODRÍGUEZ (acute kidney injury) Physical Therapy Order: Evaluate and Treat, Improve ambulation, Strength and gait training Home Health Nursing Order: Medical education Signs/symptoms of disease process Wound care and dressing changes Nursing assessment with vital signs IV medication administration I have seen patient Isha Rosales on 03/06/17. My clinical findings support the need for the requested home health care services because: Ltd mobility - disease progression Deconditioned w/ increased weakness Limited ability to care for self High risk of falls I certify that my clinical findings support that this patient is homebound because: Post-op weakness Unsteady gait/balance Unsafe to leave home unassisted Sky Bowman MD R2 Mar 06, 2017 07:50
[2017-03-06 08:00] VITALS: BP 172/82; PULSE 105; RESP 18; TEMP 98.1; O2SAT 91
[2017-03-06] MEDS ORDERED: SOD PHOSPHATE/SOD BIPHOSPHATE (ADULT) ENEMA 133ML RECTAL PRN (08:15)
[2017-03-06] MEDS ORDERED: SOD PHOSPHATE/SOD BIPHOSPHATE (ADULT) ENEMA 133ML RECTAL ONE (08:15)
[2017-03-06] MEDS: INSULIN DETEMIR 100 UNITS/ML VIAL SQ SCH ×2 (09:00→21:03)
[2017-03-06] MEDS: COLLAGENASE OINT 30 GM TUBE TOPICAL SCH (09:00)
[2017-03-06] MEDS: SODIUM CHLORIDE 0.9% FLUSH 10 ML FLUSH IV FLUSH SCH ×2 (09:00→21:00)
[2017-03-06] MEDS: CHOLECALCIFEROL (VIT D3) 5000 UNIT CAP PO SCH (09:15)
[2017-03-06] MEDS: HEPARIN SODIUM - SQ 10,000 UNITS/ML VIAL SQ SCH ×2 (09:15→17:35)
--- NOTE | 2017-03-06 09:17 | HHI.FPPN ---
Subjective Remarks Patient slept well overnight. Had episode of vomiting which is now resolved. She has not yet had a bowel movement and is requesting for enema. She would like to go home if possible. She understands we are waiting for the bone pathology to return before we know which antibiotic to place her on. She denies fever, chills, pain. She is passing gas but has not had a bowel movement. Patient is refusing IV fluids. (Sky Bowman MD R2) Objective Vitals Vital Signs Date Time Temp Pulse Resp B/P Pulse Ox O2 Delivery O2 Flow Rate FiO2 03/06/17 08:00 98.1 105 18 172/82 91 03/06/17 00:00 98.7 100 20 172/78 95 03/05/17 20:00 99.1 87 18 167/79 96 03/05/17 16:00 96.3 87 20 135/70 96 03/05/17 12:00 98.0 100 16 162/72 96 I/O 03/05/17 03/05/17 03/05/17 03/06/17 03/06/17 03/06/17 07:00 15:00 23:00 07:00 15:00 23:00 Intake Total 1040 ml 2729 ml 502 ml 1392 ml Output Total 1350 ml 1830 ml 750 ml 2400 ml Balance -310 ml 899 ml -248 ml -1008 ml Intake Oral 360 ml 1500 ml 360 ml 360 ml IV Total 680 ml 1229 ml 142 ml 1032 ml Output Urine Total 1350 ml 1830 ml 750 ml 2400 ml # Bowel Movements 0 0 (Sky Bowman MD R2) Result Diagram: 03/06/17 0603/06/17 06 Objective Remarks O. CONSTITUTIONAL/GEN: normally nourished, in NAD. EYES: conjunctiva normal, PERRLA, EOMI. ENT: Mouth and pharynx normal. NECK: supple LUNGS: clear A-P, respiratory effort is normal. CARDIOVASCULAR: RR without murmur or gallop. No significant edema. GI/ABD: soft without masses, without organomegaly. BS + NEURO: No focal deficits. SKIN: color normal, no rashes noted. Dressing on right distal foot not disturbed. Cultures of the wound and blood were obtained in ED. HEME/LYMPH: no bruising, petechia or significant adenopathy MUSC: Right foot with good sensation. Neurovascularly intact. Well wrapped per podiatry. PSYCH/MENTAL STATUS: Alert and oriented x 3. (Sky Bowman MD R2) A/P Assessment and Plan 56-year-old female with diabetes presents with osteomyelitis right first metatarsal and tibial sesamoid. Patient to be admitted for podiatry consultation and antibiotic management. Postoperative day #4 partial first ray amputation Discharge Planning Pending bone pathology results which will determine antibiotic regimen. PT recommends home with home health PT. (Sky Bowman MD R2) Attending Attestation Pt. is refusing her fasting sliding scale dose because the accucheck is done at 0600 and her breakfast cannot even be ordered until after 0700. She requests a Dulcolax suppository in a trial prior to her enema. No BM since Tuesday. I changed her pravastatin order to hs; the hospital gives it at 0900. Dr. Mark Bowman spoke with pharmacy today re patient's vancomycin dosing. I spoke again wit pharmacy and she is getting pulse dosing of her Vancomycin, also getting Zosyn q 6 hr which concerns me for increased risk of impairing renal function. In consultation with the pharmacist, I discontinued the Zosyn and started Unasyn 3 for continued gram negative coverage with hopefully less renal impairment in combination with Vancomycin. Patient seen and examined. Case reviewed and discussed with the resident team. Agree with plan of care as discussed with me and documented in the resident note. (Steph Bowman MD) Problem List: (1) Osteomyelitis Status: Acute Plan: Postop day #4 partial first ray amputation. Podiatry consultation Continue Vanco and Zosyn (started 7- Adjust antibiotics based on bone pathology Labs: Blood culture 03/01: No growth to date Wound culture 03/01: MRSA Bone pathology: Pending PT consult Incentive spirometry Pain management: [place] 10 mg pain 7-10, [place] 5 mg pain 4-6. Morphine for breakthrough pain. Careful with NSAIDs currently as the patient has [place] I (2) RODRÍGUEZ (acute kidney injury) Status: Acute Plan: Improving. Possibly due to vancomycin Vancomycin adjusted by pharmacy consult, discussed case with pharmacy. Careful with nephrotoxins, currently on vancomycin. Careful with NSAIDs Discontinue IV fluids per patient request. Consider nephrology consult (3) Diabetes mellitus type 2 in obese Status: Chronic Plan: Holding home metformin; this will likely need to be stopped temporarily as an outpatient until creatinine improves. Levemir 15 units twice a day High Sliding scale insulin per the patient's request (4) Hypothyroidism Status: Chronic Plan: Continue home Synthroid 100 g by mouth daily (5) FEN/PPX Status: Acute Plan: Fluids: Tolerating by mouth, patient refuses IV fluids at this time Electrolytes: Monitor and replace as needed Nutrition: Diabetic diet Prophylaxis: Heparin 5000 units every 8 hours Chronic medical conditions: Hyperlipidemia-continue lovastatin Hypertension: Continue lisinopril 20 mg Vitamin D deficiency: Continue cholecalciferol (Sky Bowman MD R2) Problem Qualifiers (1) Osteomyelitis: Qualified Code: M86.9 - Osteomyelitis of right foot, unspecified type (2) Hypothyroidism: Qualified Code: E03.9 - Acquired hypothyroidism Sky Bowman MD R2 Mar 06, 2017 09:17 Steph Bowman MD Mar 06, 2017 10:55
[2017-03-06] MEDS: PRAVASTATIN SOD 20 MG TAB PO SCH (09:18)
[2017-03-06] MEDS: MULTIVITAMIN TAB PO SCH (09:18)
[2017-03-06] MEDS: buPROPion HCL 75 MG TAB PO SCH ×2 (09:18→21:00)
[2017-03-06] MEDS: DOCUSATE SODIUM 50 MG/SENNA 8.6 MG TAB PO SCH ×2 (09:18→21:00)
[2017-03-06] MEDS: LISINOPRIL 20 MG TAB PO SCH (09:19)
[2017-03-06] MEDS ORDERED: BISACODYL 10 MG SUPP RECTAL ONE (11:15)
[2017-03-06 12:00] VITALS: BP 165/84; PULSE 102; RESP 18; TEMP 98.2; O2SAT 91
[2017-03-06] MEDS ORDERED: VANCOMYCIN 1,500 MG/NS 500 ML IV ONE ×4 (12:00→20:00)
[2017-03-06 16:00] VITALS: BP 173/87; PULSE 100; RESP 18; TEMP 95.6; O2SAT 93
[2017-03-06] MEDS ORDERED: AMPICILLIN/SULBAC 3 GM/NS 100 ML IV SCH ×2 (16:00)
[2017-03-06] MEDS: AMPICILLIN/SULBAC 3 GM/NS 100 ML IV SCH ×2 (17:35)
[2017-03-06] MEDS: PROMETHAZINE HCL 12.5 MG SUPP RECTAL PRN (17:36)
--- NOTE | 2017-03-06 18:11 | MP ---
cc: ENMAMANANPablito DPVicky DATE OF 1960 DATE OF SURGERY 03/02/2017 INDICATION The patient presented to the clinic with worsening infection with visible capsule to the medial aspect of the first metatarsophalangeal joint with necrotic tissue present. She was getting more erythema and edema to the area and was sent to the emergency department to be evaluated for possible osteomyelitis secondary to proximity with bone and was found to have osteomyelitis present in the first metatarsal head and toe. I discussed with the patient the situation and she consented to undergo partial first ray amputation of the right foot. She was seen in preop holding by myself, nursing staff and Anesthesia where the correct patient, side and site were all confirmed be correct in the right foot. She was then taken back to the surgical suite, placed in supine position where attention was directed to the right foot. It was prepped and draped in normal sterile fashion followed by time-out as per hospital protocol. Upon examination there was noted to be a wound to the medial first metatarsophalangeal joint area was necrotic joint capsule. No schuyler purulence was noted. Dissection was taken down to the first metatarsal mid shaft area where the bone was transected there and the distal first metatarsal and toe as well as sesamoid apparatus were all removed and sent to pathology as specimen. Following this, the area was copiously irrigated followed by removal of necrotic tissue, irrigation with 1 liter normal saline followed by culture taken prior to attempt at primary closure with 2-0 and 3-0 nylon. Of note the residual first metatarsal shaft area, a piece of bone was taken from that area and sent for bone biopsy and bone culture prior to closure. The area was closed with 2-0 and 3-0 nylon followed by dressing consisting of Xeroform, 4x4s, ABD, cast padding and Mason bandage to the right foot. She will be non-weightbearing to the right foot and we will await bone biopsy results to determine length of her need for IV antibiotics. SURGEON Hector Sahu TOGGLE PRESS OPERATOR Staff. PREOPERATIVE DIAGNOSIS Osteomyelitis right distal first metatarsal and hallux. POSTOPERATIVE DIAGNOSIS Osteomyelitis right distal first metatarsal and hallux. PROCEDURE Right partial first ray amputation. ANESTHESIA LMA COMPLICATIONS None. PATHOLOGY 1. Partial first ray right foot to pathology. 2. Biopsy of bone of residual first metatarsal right foot. 3. Culture right foot. CONDITION Stable to PACU. COMPLICATIONS None. DISPOSITION Non-weightbearing right foot and we will await bone biopsy results to determine length of need for IV antibiotics. Susu PINEDAKK /3:43 PM /6:00 PM
[2017-03-06 20:00] VITALS: BP 159/75; PULSE 82; RESP 20; TEMP 98.4; O2SAT 96
[2017-03-06] MEDS ORDERED: PRAVASTATIN SOD 20 MG TAB PO SCH (21:00)
[2017-03-07] VITALS: BP 176/74; PULSE 110; RESP 21; TEMP 98.6; O2SAT 95
[2017-03-07] MEDS: HEPARIN SODIUM - SQ 10,000 UNITS/ML VIAL SQ SCH ×2 (00:44→09:18)
[2017-03-07] MEDS: AMPICILLIN/SULBAC 3 GM/NS 100 ML IV SCH ×6 (00:45→14:12)
[2017-03-07] MEDS: PROMETHAZINE HCL 12.5 MG SUPP RECTAL PRN ×2 (02:31→09:18)
[2017-03-07 04:00] VITALS: BP 151/76; PULSE 106; RESP 19; TEMP 100; O2SAT 94
[2017-03-07 06:10] LABS: AUTOMATED NEUTROPHIL # 8.9 TH/MM3 (1.8-7.7); BASOPHIL % 0.4 % (0.0-2.0); EOSINOPHIL # 0.1 TH/MM3 (0-0.4); EOSINOPHIL % 0.6 % (0.0-4.0); HEMATOCRIT 33.4 % (35.0-46.0); HEMO FLAGS DIFF FINAL; LYMPH % 13.2 % (9.0-44.0); LYMPHOCYTE # 1.5 TH/MM3 (1.0-4.8); MEAN CELL VOLUME 85.1 FL (80.0-100.0); MEAN CORPUSCULAR HEMOGLOBIN 28.5 PG (27.0-34.0); MEAN CORPUSCULAR HGB CONC 33.5 % (32.0-36.0); MONO % 7.5 % (0.0-8.0); NEUT % 78.3 % (16.0-70.0); PLATELET COUNT 349 TH/MM3 (150-450); RED BLOOD COUNT 3.93 MIL/MM3 (4.00-5.30); RED CELL DISTRIBUTION WIDTH 13.6 % (11.6-17.2); WHITE BLOOD COUNT 11.4 TH/MM3 (4.0-11.0)
[2017-03-07 06:25] LABS: BICARBONATE 21.4 MEQ/L (21.0-32.0); POTASSIUM 4.3 MEQ/L (3.5-5.1)
[2017-03-07] MEDS: INSULIN ASPART SUPPLEMENTAL SCALE SQ SCH ×2 (06:37→12:08)
[2017-03-07] MEDS: LEVOTHYROXINE SODIUM 100 MCG TAB PO SCH (06:41)
[2017-03-07 08:00] VITALS: BP 173/81; PULSE 102; RESP 17; TEMP 98.5; O2SAT 92
[2017-03-07] MEDS: SODIUM CHLORIDE 0.9% FLUSH 10 ML FLUSH IV FLUSH SCH (09:00)
[2017-03-07] MEDS: CHOLECALCIFEROL (VIT D3) 5000 UNIT CAP PO SCH (09:00)
[2017-03-07] MEDS: COLLAGENASE OINT 30 GM TUBE TOPICAL SCH (09:00)
[2017-03-07] MEDS: DOCUSATE SODIUM 50 MG/SENNA 8.6 MG TAB PO SCH (09:00)
[2017-03-07] MEDS: MULTIVITAMIN TAB PO SCH (09:00)
[2017-03-07] MEDS: INSULIN DETEMIR 100 UNITS/ML VIAL SQ SCH (09:00)
--- NOTE | 2017-03-07 09:05 | RADRPT ---
EXAM DATE/TIME: 03/07/2017 08:37 [place] COMPARISON: No previous studies available for comparison. INDICATIONS : Cough and shortness of breath. MEDICAL HISTORY : Hypertension. Diabetes mellitus type II. SURGICAL HISTORY : None. ENCOUNTER: Initial ACUITY: 1 day PAIN SCORE: 0/10 LOCATION: Bilateral chest FINDINGS: A single view of the chest demonstrates diminished lung volumes and bibasilar densities. Heart normal in size. Osseous structures are intact. CONCLUSION: 1. Diminished lung volumes and bibasilar densities likely atelectasis. Jp Gillespie MD on March 07, 2017 at 9:03 Board Certified Radiologist. This report was verified electronically.
[2017-03-07] MEDS: buPROPion HCL 75 MG TAB PO SCH (09:18)
[2017-03-07] MEDS: LISINOPRIL 20 MG TAB PO SCH (09:18)
[2017-03-07] MEDS: ACETAMINOPHEN/HYDROcodone 325 MG/10 MG TAB PO PRN (09:23)
--- NOTE | 2017-03-07 09:53 | HHI.FPPN ---
Subjective Remarks Patient states she has not been feeling well. She has been getting short of breath lying down and has an increased cough. She denies fever or chills. She has not been using her incentive spirometer because of increased shortness of breath. She has had 3-4 bowel movements and is no longer complaining of abdominal discomfort related to constipation. She denies headache, changes in vision. (Sky Bowman MD R2) Objective Vitals Vital Signs Date Time Temp Pulse Resp B/P Pulse Ox O2 Delivery O2 Flow Rate FiO2 03/07/17 08:00 98.5 102 17 173/81 92 03/07/17 04:00 100.0 106 19 151/76 94 03/07/17 00:00 98.6 110 21 176/74 95 03/06/17 20:00 98.4 82 20 159/75 96 03/06/17 16:00 95.6 100 18 173/87 93 03/06/17 12:00 98.2 102 18 165/84 91 I/O 03/06/17 03/06/17 03/06/17 03/07/17 03/07/17 03/07/17 07:00 15:00 23:00 07:00 15:00 23:00 Intake Total 1392 ml 960 ml 990 ml 240 ml Output Total 2400 ml 550 ml Balance -1008 ml 410 ml 990 ml 240 ml Intake Oral 360 ml 960 ml 240 ml 240 ml IV Total 1032 ml 750 ml Output Urine Total 2400 ml 550 ml # Voids 2 3 # Bowel Movements 0 2 1 2 (Sky Bowman MD R2) Result Diagram: 03/07/17 0505 03/07/17 0505 Objective Remarks O. CONSTITUTIONAL/GEN: normally nourished, in NAD. EYES: conjunctiva normal, PERRLA, EOMI. ENT: Mouth and pharynx normal. NECK: supple LUNGS: clear A-P, respiratory effort is normal. CARDIOVASCULAR: RR without murmur or gallop. No significant edema. GI/ABD: soft without masses, without organomegaly. BS + NEURO: No focal deficits. SKIN: color normal, no rashes noted. Dressing on right distal foot not disturbed. Cultures of the wound and blood were obtained in ED. HEME/LYMPH: no bruising, petechia or significant adenopathy MUSC: Right foot with good sensation. Neurovascularly intact. Well wrapped per podiatry. PSYCH/MENTAL STATUS: Alert and oriented x 3. (Sky Bowmna MD R2) A/P Assessment and Plan 56-year-old female with diabetes presents with osteomyelitis right first metatarsal and tibial sesamoid. Patient to be admitted for podiatry consultation and antibiotic management. Postoperative day #5 partial first ray amputation Discharge Planning Pending bone pathology results which will determine antibiotic regimen. PT recommends home with home health PT. (Sky Bowman MD R2) Attending Attestation Patient seen and examined. Case reviewed and discussed with the resident team. Agree with plan of care as discussed with me and documented in the resident note. (Steph Bowman MD) Problem List: (1) Osteomyelitis Status: Acute Plan: Postop day #5 partial first ray amputation. Podiatry consultation Continue Vanco (started 03/01-) and Unasyn (started 03/06 Previously on Zosyn from 03/01-03/06 Adjust antibiotics based on bone pathology Labs: Blood culture 03/01: No growth to date Wound culture 03/01: MRSA Bone pathology: Pending (03/07- called Pathology and should have a result by this afternoon) PT consult Incentive spirometry Pain management: [place] 10 mg pain 7-10, [place] 5 mg pain 4-6. Morphine for breakthrough pain. Careful with NSAIDs currently as the patient has AK I (2) RODRÍGUEZ (acute kidney injury) Status: Acute Plan: Improving. Possibly due to vancomycin and/or Zosyn Vancomycin adjusted by pharmacy consult, discussed case with pharmacy. Change Zosyn to Unasyn as above. Careful with nephrotoxins, currently on vancomycin. Careful with NSAIDs Discontinue IV fluids per patient request. Discontinue outpatient metformin Consider nephrology consult (3) Diabetes mellitus type 2 in obese Status: Chronic Plan: Holding home metformin; this will likely need to be stopped temporarily as an outpatient until creatinine improves. Levemir 15 units twice a day High Sliding scale insulin per the patient's request (4) Hypothyroidism Status: Chronic Plan: Continue home Synthroid 100 g by mouth daily (5) FEN/PPX Status: Acute Plan: Fluids: Tolerating by mouth, patient refuses IV fluids at this time Electrolytes: Monitor and replace as needed Nutrition: Diabetic diet Prophylaxis: Heparin 5000 units every 8 hours Chronic medical conditions: Hyperlipidemia-continue lovastatin Hypertension: Continue lisinopril 20 mg Vitamin D deficiency: Continue cholecalciferol (Sky Bowman MD R2) Problem Qualifiers (1) Osteomyelitis: Qualified Code: M86.9 - Osteomyelitis of right foot, unspecified type (2) Hypothyroidism: Qualified Code: E03.9 - Acquired hypothyroidism Sky Bowman MD R2 Mar 07, 2017 09:53 Steph Bowman MD Mar 07, 2017 13:01
[2017-03-07 12:00] VITALS: BP 151/74; PULSE 103; RESP 17; TEMP 96.9; O2SAT 92
[2017-03-07 16:00] VITALS: BP 158/79; PULSE 103; RESP 17; TEMP 98.4; O2SAT 94
[2017-03-07] MEDS ORDERED: BACT800T5 PO (16:59)
[2017-03-08] MEDS ORDERED: [UNRECOGNIZED DRUG - REMARK] ONE (06:00)
== END 2017-03-07 19:09 | disposition home or self-care (01) | DRG 617 ==
LOC: NEPE 16:38 → NEDA 22:24 → NEPHCDU 03-02 00:30 → N07B 03-02 23:16
PROVIDERS: ADMIT Family Medicine; ATTEND Family Medicine
PROC: 0QBN0ZX Excision of Right Metatarsal, Open Approach, Diagnostic (ICD-10-PCS; 2017-03-02)
PROC: 0Y6M0Z9 Detachment at Right Foot, Partial 1st Ray, Open Approach (ICD-10-PCS; principal; 2017-03-02 22:18)
DX: E11.69 Type 2 diabetes mellitus with other specified complication (principal); M86.9 Osteomyelitis, unspecified; N17.9 Acute kidney failure, unspecified; I10 Essential (primary) hypertension; F41.9 Anxiety disorder, unspecified; F32.9 Major depressive disorder, single episode, unspecified; E11.621 Type 2 diabetes mellitus with foot ulcer; E55.9 Vitamin D deficiency, unspecified; L97.519 Non-pressure chronic ulcer of other part of right foot with unspecified severity; E78.5 Hyperlipidemia, unspecified; E66.9 Obesity, unspecified; E03.9 Hypothyroidism, unspecified; Z79.4 Long term (current) use of insulin; Z68.34 Body mass index [BMI] 34.0-34.9, adult; Z87.891 Personal history of nicotine dependence
CPT/HCPCS: 71010; 73630; 73720; 76937; 80048; 80053; 80202; 82948; 85025; 85652; 86140; 86403; 87015; 87040; 87070; 87102; 87116; 87186; 87205; 87206; 88305; 88307; 88311; 94150; 96374; A9579; J0131; J0295; J0780; J1644; J1815; J1885; J2250; J2270; J2370; J2405; J2543; J3010; J3370; J7030; J7040; J7050; J7120; L3260

== ENCOUNTER → 2017-04-08 | Outpatient (CLI) | payer OTHER ==
[~2017-04-08] MED LIST changes: +BEDSIDE COMMODE1 MI1; +CHOL5000 PO; -CHOL50008 PO; -EASY1MIS7; -GLUCOSE METER; -GLUCTAB PO; -GLUCTES27; -Glucometer; +HYDR-3583 PO; -IBUP200C PO; -LEVA750T9 PO; -METR-1 PO; -SENN1TAB PO; -WALKER; -ZOFR4TAB PO; -[UNRECOGNIZED DRUG - OTHER]; -[UNRECOGNIZED DRUG - SUPPLY]; -[UNRECOGNIZED DRUG - SUPPLY]; -glucose test strips
[2017-04-08 13:25] LABS: AUTOMATED NEUTROPHIL # 4.7 TH/MM3 (1.8-7.7); BASOPHIL # 0.1 TH/MM3 (0-0.2); BASOPHIL % 0.9 % (0.0-2.0); EOSINOPHIL # 0.7 TH/MM3 (0-0.4); HEMATOCRIT 32.9 % (35.0-46.0); HEMO FLAGS DIFF FINAL; LYMPH % 23.3 % (9.0-44.0); LYMPHOCYTE # 1.8 TH/MM3 (1.0-4.8); MEAN CELL VOLUME 86.1 FL (80.0-100.0); MEAN CORPUSCULAR HEMOGLOBIN 28.6 PG (27.0-34.0); MEAN CORPUSCULAR HGB CONC 33.2 % (32.0-36.0); NEUT % 60.8 % (16.0-70.0); PLATELET COUNT 297 TH/MM3 (150-450); RED BLOOD COUNT 3.82 MIL/MM3 (4.00-5.30); WHITE BLOOD COUNT 7.8 TH/MM3 (4.0-11.0)
[2017-04-08 13:35] LABS: ALT (GPT) 17 U/L (10-53); ANION GAP 10 MEQ/L (5-15); AST (GOT) 10 U/L (15-37); BICARBONATE 23.8 MEQ/L (21.0-32.0); BLOOD UREA NITROGEN 29 MG/DL (7-18); CHLORIDE 105 MEQ/L (98-107); GLOMERULAR FILTRATION RATE 36 ML/MIN (>89); GLUCOSE,FASTING 183 MG/DL (74-99); SODIUM (NA) 139 MEQ/L (136-145)
[2017-04-08 13:45] LABS: ALKALINE PHOSPHATASE 53 U/L (45-117); HDL CHOLESTEROL 42.1 MG/DL (40.0-60.0); LDL CHOLESTEROL 102 MG/DL (0-99); TOTAL BILIRUBIN ADULT 0.3 MG/DL (0.2-1.0)
[2017-04-08 17:24] LABS: HEMOGLOBIN A1a 1.1 %; HEMOGLOBIN A1b 2.8 %; HEMOGLOBIN Ao 77.8 %; HEMOGLOBIN LA1C 2.6 %
== END ==
LOC: PLAB 11:51
PROVIDERS: ATTEND Family Medicine
DX: E11.65 Type 2 diabetes mellitus with hyperglycemia (principal); S98.111A Complete traumatic amputation of right great toe, initial encounter; E03.4 Atrophy of thyroid (acquired); E78.01 Familial hypercholesterolemia; X58.XXXA Exposure to other specified factors, initial encounter
CPT/HCPCS: 36415; 80053; 80061; 83036; 84443; 84681; 85025

== ENCOUNTER → 2017-06-13 | Day surgery (SDC) | payer OTHER ==
[~2017-06-13] MED LIST changes: +LACTATED RINGER'S 1000 ML INJ 1,000 ML ONE; +ONDANSETRON HCL 4 MG/2 ML VIAL ONE; +PROPOFOL 500 MG/50 ML BTL IV ONE
--- NOTE | 2017-06-13 10:13 | GIPROC ---
[facility] [address] [facility], [address] COLONOSCOPY PROCEDURE REPORT EXAM DATE: 06/13/2017 PATIENT NAME: Isha Rosales MR #: [id number] BIRTHDATE: 1960 ENDOSCOPIST: Darinel Myles MD ORDER #: [id number] STAFF RESPIRATORY THERAPIST: Antonietta Rios RN STATUS: outpatient INDICATIONS: The patient is a 57 yr old female here for a colonoscopy due to patient's immediate family history of colon cancer PROCEDURE PERFORMED: Colonoscopy, screening MEDICATIONS: None, Per Anesthesia, None, and Per Anesthesia. PREP QUALITY: excellent ESTIMATED BLOOD LOSS: None CONSENT: The patient understands the risks and benefits of the procedure and understands that these risks include, but are not limited to: sedation, allergic reaction, infection, perforation and/or bleeding. Alternative means of evaluation and treatment include, among others: physical exam, x-rays, and/or surgical intervention. The patient elects to proceed with this endoscopic procedure. medical equipment was checked for proper function. Hand hygiene and appropriate measures for infection prevention was taken. After the risks, benefits and alternatives of the procedure were thoroughly explained, Informed consent was verified, confirmed and timeout was successfully executed by the treatment team. A digital exam revealed no abnormalities of the rectum The EC-[id number] ([id number]) endoscope was introduced through the anus and advanced to the cecum, which was identified by both the appendix and ileocecal valve. The instrument was then slowly withdrawn as the colon was fully examined. COLON FINDINGS: The colonic mucosa appeared normal. Retroflexed views revealed no abnormalities The scope was then completely withdrawn from the patient and the procedure terminated. PROCEDURE WITHDRAWAL TIME:6.8minutes ADVERSE EVENTS: There were no complications. IMPRESSIONS: 1. The colonic mucosa appeared normal 2. Retroflexed views revealed no abnormalities 3. Revealed no abnormalities of the rectum RECOMMENDATIONS: 1. High fiber diet 2. Yearly hemoccult 3. Follow-up: GI Clinic PRN RECALL: Return 5 years Colonoscopy Darinel Myles MD eSigned: Darinel Myles MD 06/13/2017 10:13 AM cc: Buzz Mcleod and Mold Mover, Tlsc Rosio DOCUMENT ADDENDUM eSigned: Darinel Myles MD 06/13/2017 10:17 AM Reason for addendum: [ ] Correction of inaccurate information [ ] Recently acquired lab/pathology results [x] Additional information Comments: PATIENT NAME: Isha Rosales MR#: [id number]
--- NOTE | 2017-06-13 10:16 | GIPROC ---
[facility] [address] [facility], [address] EGD PROCEDURE REPORT EXAM DATE: 06/13/2017 PATIENT NAME: Isha Rosales MR #: [id number] BIRTHDATE: 1960 ATTENDING: Darinel Myles MD ORDER #: [id number] COMPLAINT OPERATOR: Antonietta Rios RN STATUS: outpatient INDICATIONS: The patient is a 57 yr old female here for an EGD due to bloating PROCEDURE PERFORMED: EGD w/ biopsy MEDICATIONS: None, Per Anesthesia, None, and Per Anesthesia. TOPICAL ANESTHETIC: CONSENT: The patient understands the risks and benefits of the procedure and understands that these risks include, but are not limited to: sedation, allergic reaction, infection, perforation and/or bleeding. Alternative means of evaluation and treatment include, among others: physical exam, x-rays, and/or surgical intervention. The patient elects to proceed with this endoscopic procedure. medical equipment was checked for proper function. Hand hygiene and appropriate measures for infection prevention was taken. After the risks, benefits and alternatives of the procedure were thoroughly explained, Informed consent was verified, confirmed and timeout was successfully executed by the treatment team. The patient was anesthetized with topical anesthesia and the EC-3490Li ([id number]) endoscope was introduced through the mouth and advanced to the second portion of the duodenum. Retroflexed views revealed no abnormalities The gastroscope was then slowly withdrawn and removed. STOMACH: There was mild gastritis in the gastric antrum and gastric body. Multiple biopsies were performed. The endoscopy was otherwise normal. ADVERSE EVENTS: There were no complications. IMPRESSIONS: 1. There was mild gastritis in the gastric antrum and gastric body; multiple biopsies were performed 2. Normal endoscopy otherwise 3. Retroflexed views revealed no abnormalities RECOMMENDATIONS: 1. Await biopsy results. Biopsy results will not be ready for 7-10 days. If you don't hear from us in two weeks, call our office for biopsy results. 2. Gastric emptying study 3. Follow-up: GI clinic 3 week(s) PATIENT CONDITION: stable DISPOSITION: Home REPEAT EXAM: Darinel Myles MD eSigned: Darinel Myles MD 06/13/2017 10:15 AM cc: [facility]
== END | disposition home or self-care (01) ==
LOC: ESDC 08:18
PROVIDERS: ATTEND Internal Medicine Gastroenterology
DX: Z12.11 Encounter for screening for malignant neoplasm of colon (principal); Z80.0 Family history of malignant neoplasm of digestive organs; R14.0 Abdominal distension (gaseous); K29.70 Gastritis, unspecified, without bleeding
CPT/HCPCS: 00740; 00810; 43239; 45378; 82948; 88305; 88312; J2405; J3010; J7120

== ENCOUNTER → 2017-08-05 | Outpatient (CLI) | payer OTHER ==
[~2017-08-05] MED LIST changes: -LACTATED RINGER'S 1000 ML INJ 1,000 ML ONE; -ONDANSETRON HCL 4 MG/2 ML VIAL ONE; -PROPOFOL 500 MG/50 ML BTL IV ONE
[2017-08-05 13:40] LABS: ALT (GPT) 22 U/L (10-53); ANION GAP 6 MEQ/L (5-15); AST (GOT) 19 U/L (15-37); BICARBONATE 25.4 MEQ/L (21.0-32.0); BLOOD UREA NITROGEN 25 MG/DL (7-18); CHLORIDE 105 MEQ/L (98-107); GLOMERULAR FILTRATION RATE 49 ML/MIN (>89); GLUCOSE,FASTING 166 MG/DL (74-99); POTASSIUM 4.3 MEQ/L (3.5-5.1); SODIUM (NA) 136 MEQ/L (136-145)
[2017-08-05 13:45] LABS: HDL CHOLESTEROL 48.9 MG/DL (40.0-60.0); LDL CHOLESTEROL 111 MG/DL (0-99)
[2017-08-05 16:48] LABS: HEMOGLOBIN A1a 1.3 %; HEMOGLOBIN A1b 2.3 %; HEMOGLOBIN Ao 79.8 %; HEMOGLOBIN LA1C 2.7 %; HEMOGLOBIN P3 4.7 %
== END ==
LOC: PLAB 11:52
PROVIDERS: ATTEND Internal Medicine
DX: E11.49 Type 2 diabetes mellitus with other diabetic neurological complication (principal)
CPT/HCPCS: 36415; 80048; 80061; 82043; 82570; 83036; 84156; 84443; 84450; 84460

== ENCOUNTER → 2017-11-16 | Outpatient (CLI) | payer OTHER ==
[2017-11-16 10:32] LABS: AST (GOT) 15 U/L (15-37); BLOOD UREA NITROGEN 31 MG/DL (7-18); GLOMERULAR FILTRATION RATE 46 ML/MIN (>89)
[2017-11-16 10:33] LABS: CHOLESTEROL 167 MG/DL (120-200)
[2017-11-16 10:37] LABS: ALT (GPT) 18 U/L (10-53); HDL CHOLESTEROL 40.7 MG/DL (40.0-60.0); LDL CHOLESTEROL 93 MG/DL (0-99); TRIGLYCERIDES 166 MG/DL (42-150)
[2017-11-17 14:58] LABS: HEMOGLOBIN A1C 7.7 % (4.3-6.0)
== END ==
LOC: PLAB 07:28
PROVIDERS: ATTEND Internal Medicine
DX: E11.9 Type 2 diabetes mellitus without complications (principal)
CPT/HCPCS: 36415; 80061; 82565; 83036; 84132; 84450; 84460; 84520

== ENCOUNTER → 2018-01-06 | Day surgery (SDC) | payer OTHER ==
[~2018-01-06] MED LIST changes: +BUPIVACAINE HCL PF 0.5% 10 ML VIAL ONE; +KETOROLAC TROMETHAMINE 30 MG/ML (IVP) VIAL IV PUSH ONE; +LACTATED RINGER'S 1000 ML INJ 1,000 ML ONE; +LIDOCAINE HCL 2% 50 ML VIAL ONE; +MIDAZOLAM HCL 2 MG/2 ML VIAL ONE; +ONDANSETRON HCL 4 MG/2 ML VIAL IV PUSH ONE; +PROPOFOL 200 MG/20 ML AMP IV ONE; +SODIUM CHLORIDE 0.9% 250 ML ADDBAG IV ONE; +VANCOMYCIN HCL 1000 MG VIAL ONE; +ceFAZolin 1 GM PREMIX 100 ML ONE
--- NOTE | 2018-01-13 16:50 | TN ---
cc: Susu Sahu DPM DATE OF SURGERY: 01/06/2018 DATE OF PROCEDURE: 01/06/2018 INDICATION FOR PROCEDURE: This patient presented to my clinic with continued wound with purulent drainage that was noted to the plantar aspect of the right fourth toe distally. She had a wound there with consistent drainage coming from the area. I ordered an MRI that showed positive changes for osteomyelitis in both the middle and the distal phalanges. I discussed with the patient that she would benefit from undergoing amputation of the fourth toe. In order to help her stay out of the hospital, I agreed to do it as an outpatient in attempt to manage her surgically as well as medically after the surgery. I discussed with her there is a chance that she will lose the entire toe and I do recommend that we take the entire toe as to be sure that we remove all of the infected tissue. She agreed to move forward with the procedure. DESCRIPTION OF PROCEDURE: She was seen in preop holding by myself, nursing staff and anesthesia where the correct patient, side, and site were all confirmed to be correct and the right foot. She was then taken to the surgical suite in supine position. Right foot was prepped and draped in normal sterile fashion. Following this, attention was directed to the right fourth toe, where 2 semi-elliptical incisions were made medially and laterally to the right fourth toe area and it was disarticulated at the metatarsophalangeal joint level. The area appeared to be healthy viable tissue with healthy viable white cartilage cap noted to the fourth metatarsal head. No necrotic tissue was noted within the wound. A culture was taken prior to irrigation and primary closure with 2-0 nylon suture. She tolerated the procedure and anesthesia well without complications and a dressing consisting of Xeroform, 4 x 4's, ABD, and cast padding with Mason bandage were applied to the right foot. She was taken back to the PACU with vital signs stable and vascular status intact to the right foot and she will be weightbearing as tolerated to the right foot in a surgical shoe and will followup in clinic in 1 week for a dressing change. SHORT OPERATIVE SURGEON: Susu Sahu DPM PAPER TUBE GRADER: Staff. PREOPERATIVE DIAGNOSIS: Osteomyelitis, right fourth toe middle and distal phalanges. POSTOPERATIVE DIAGNOSIS: Osteomyelitis, right fourth toe middle and distal phalanges. PROCEDURE PERFORMED: Amputation, right fourth toe. PATHOLOGY: 1. Culture right foot. 2. Right fourth toe to pathology. ESTIMATED BLOOD LOSS: Less than 10 m. TOURNIQUET TIME: Right ankle at 250 mmHg x 15 minutes. PROPHYLAXIS: One gram IV vancomycin given preoperatively for prophylaxis. ANESTHESIA: General endotracheal anesthesia plus local consisting of 10 mL of 0.5% Marcaine plain. DISPOSITION: Weightbearing as tolerated right foot in surgical shoe and follow up in clinic in 1 week for a dressing change. NATASHA Kang/MACY , 04:34 PM , 04:49 PM
== END | disposition home or self-care (01) ==
LOC: ESDC 06:06
PROVIDERS: ATTEND Podiatrist Foot & Ankle Surgery
DX: M86.171 Other acute osteomyelitis, right ankle and foot (principal); E11.9 Type 2 diabetes mellitus without complications; Z79.4 Long term (current) use of insulin
CPT/HCPCS: 01470; 01480; 28820; 82948; 87070; 87102; 87205; 87206; 88305; 88311; J0690; J1885; J2250; J2405; J3010; J3370; J7120

== ENCOUNTER 2018-07-15 00:20 | Inpatient (IN) ==
[2018-07-15 02:36] LABS: Baso # (Auto) 0.1 th/mm3 (0.0-0.2); Baso % (Auto) 0.6 % (0.0-2.0); Eos # (Auto) 0.2 th/mm3 (0.0-0.4); Eos % (Auto) 2.2 % (0.0-4.0); Hematocrit 32.8 % (35.0-46.0); Hemoglobin 11.2 gm/dL (11.6-15.3); Lymph # (Auto) 2.4 th/mm3 (1.0-4.8); Lymph % (Auto) 21.2 % (9.0-44.0); Mean Corpuscular HGB Conc 34.3 % (32.0-36.0); Mean Corpuscular Hemoglobin 28.8 pg (27.0-34.0); Mean Corpuscular Volume 84.1 fL (80.0-100.0); Mean Platelet Volume 7.4 fL (7.0-11.0); Mono # (Auto) 0.8 th/mm3 (0.0-0.9); Mono % (Auto) 7.4 % (0.0-8.0); Neut # (Auto) 7.7 th/mm3 (1.8-7.7); Neut % (Auto) 68.6 % (16.0-70.0); Platelet Count 294 th/mm3 (150-450); Red Cell Distribution Width 13.7 % (11.6-17.2); White Blood Count 11.1 th/mm3 (4.0-11.0)
[2018-07-15 02:51] LABS: Alanine Aminotransferase 19 U/L (10-53); Albumin 3.3 g/dL (3.4-5.0); Anion Gap 6 meq/L (5-15); Aspartate Aminotransferase 14 U/L (15-37); Blood Urea Nitrogen 31 mg/dL (7-18); C-Reactive Protein 4.09 mg/dL (0.00-0.30); Calcium 8.7 mg/dL (8.5-10.1); Chloride 105 meq/L (98-107); Glomerular Filtration Rate 40 mL/min (>89); Glucose,Random 140 mg/dL (74-106); Potassium 3.9 meq/L (3.5-5.1); Sodium 138 meq/L (136-145)
[2018-07-15 02:53] LABS: Alkaline Phosphatase 75 U/L (45-117); Total Protein 8.1 g/dL (6.4-8.2)
--- NOTE | 2018-07-15 02:55 | XR ---
EXAM DATE: 07/15/2018 2:29 AM EST AGE/SEX: 58 years / Female INDICATIONS: Inflammation of the right fifth digit. CLINICAL DATA: This is the patient's initial encounter. Patient reports that signs and symptoms have been present for 1 day and indicates a pain score of 6/10. MEDICAL/SURGICAL HISTORY: Hypertension. Diabetes mellitus type II. . Right foot. COMPARISON: No prior exams available for comparison. FINDINGS: There is previous amputation of the first and fourth toes. There is a dislocation the there metatarsophalangeal joint with fracture of the proximal phalanx. No other fractures identified. There is also dislocation at the second MTP without fracture identified. There is some bony erosive change of the distal phalanx fifth toe most characteristic of osteomyeliti s. CONCLUSION: Bone erosion at the distal phalanx fifth toe terminal tuft most characteristic of osteomyelitis with overlying soft tissue swelling. Dislocation at the second and third metatarsophalangeal joints with additional fracture at the third toe. Electronically signed by: Tevin Chua MD 07/15/2018 2:54 AM EST
[2018-07-15] MEDS ORDERED: Piperacil/Tazo 4.5 GM Premix 4.5 GM/100 ML BAG IV.SIG ONE (03:03)
--- NOTE | 2018-07-15 03:52 | ED ---
HPI General Chief complaint: Extremity Injury, Lower Stated complaint: Skin Time Seen by Provider: 07/15/18 01:25 Source: patient Mode of arrival: ambulatory Limitations: no limitations History of Present Illness HPI narrative: 58-year-old woman presents to the emergency department complaining of toe blister. She is a history of diabetes. She is multiple toes amputated previously. Pains in the right great toe. Pain is minimal she has a history of neuropathy. There is no radiation. No fevers. She noticed it today. She states she recently had surgery and so she is in a walking boot on the left leg which is causing her to walk abnormally in the right foot. No other aggravating or relieving factors. No other complaints. Related Data Allergies Allergy/AdvReac Type Severity Reaction Status Date / Time *MDRO Multi-Drug Resistant AdvReac Unknown MRSA Uncoded 07/15/18 01:08 Organism Review of Systems ROS: all other systems reviewed are negative [facility] Medical History Medical History Cataracts, bilateral (Acute) Diabetes (Acute) History of amputation of right great toe (Acute) Hypertension (Acute) Peripheral neuropathy (Acute) Social History Social History Substance History: No History of Abuse Second Hand Smoke Exposure: No Smoking Status: Never smoker How Often Do You Have a Drink Containing Alcohol: Monthly or less Recent Travel in [facility] within the Last 8 Weeks: No Recent Out of Country Travel within the Last 8 Weeks: No Immunization History Tetanus Immunization: <5 Years Exam Narrative Exam Narrative: GENERAL: Well-appearing 58-year-old woman, no acute distress per SKIN: Focused skin assessment warm/dry. HEAD: Atraumatic. Normocephalic. EYES: Pupils equal and round. No scleral icterus. No injection or drainage. ENT: No nasal bleeding or discharge. Mucous membranes pink and moist. NECK: Trachea midline. No JVD. CARDIOVASCULAR: Regular rate and rhythm. No murmur appreciated. RESPIRATORY: No accessory muscle use. Clear to auscultation. Breath sounds equal bilaterally. GASTROINTESTINAL: Abdomen soft, non-tender, nondistended. Hepatic and splenic margins not palpable. MUSCULOSKELETAL: Focused examination of the right lower extremity reveals multiple previous toe amputations. Middle toe reveals a large hemorrhagic blister. After this was punctured with a needle, the significant loss of volume of the toe tissue itself. The nail was very loosely adhered. There is erythema and warmth in the toe also. NEUROLOGICAL: Awake and alert. No obvious cranial nerve deficits. Motor grossly within normal limits. Normal speech. PSYCHIATRIC: Appropriate mood and affect; insight and judgment normal. Course Initial Documented Vital Signs Temperature 98.1 F 07/15/18 01:08 Pulse Rate 96 H 07/15/18 01:08 Respiratory Rate 16 07/15/18 01:08 Blood Pressure 143/79 H 07/15/18 01:08 Pulse Oximetry 96 07/15/18 01:08 Last Documented Vital Signs Temperature 98.1 F 07/15/18 01:08 Pulse Rate 96 H 07/15/18 01:08 Respiratory Rate 16 07/15/18 01:08 Blood Pressure 143/79 H 07/15/18 01:08 Pulse Oximetry 96 07/15/18 01:08 Medical Decision Making MDM Narrative Medical decision making narrative: 58-year-old woman, presents with hemorrhagic blister of the right toe. This appears to be infected. She says she first noticed it today. There is bony changes of the distal tip concerning for osteomyelitis already. Also suggest a longer course and initially appreciated. Inflammatory markers are elevated as well. Culture was sent from the fluid after the blister was drained. We will plan on admission, podiatry consultation. Medical Screen Exam Complete: Yes Emergency Medical Condition: Yes Lab Data Lab results reviewed: Yes I reviewed the patient's lab results. Result diagrams: 07/15/18 02:15 07/15/18 02:15 Lab Results 07/15/18 07/15/18 07/15/18 Range/Units 02:15 02:15 02:15 WBC 11.1 H (4.0-11.0) th/mm3 RBC 3.90 L (4.00-5.30) mil/mm3 Hgb 11.2 L (11.6-15.3) gm/dL Hct 32.8 L (35.0-46.0) % MCV 84.1 (80.0-100.0) fL MCH 28.8 (27.0-34.0) pg MCHC 34.3 (32.0-36.0) % RDW 13.7 (11.6-17.2) % Plt Count 294 (150-450) th/mm3 MPV 7.4 (7.0-11.0) fL Prelim Diff (Auto) Slide review pending Neut % (Auto) 68.6 (16.0-70.0) % Lymph % (Auto) 21.2 (9.0-44.0) % Wilkes % (Auto) 7.4 (0.0-8.0) % Eos % (Auto) 2.2 (0.0-4.0) % Baso % (Auto) 0.6 (0.0-2.0) % Neut # (Auto) 7.7 (1.8-7.7) th/mm3 Lymph # (Auto) 2.4 (1.0-4.8) th/mm3 Wilkes # (Auto) 0.8 (0.0-0.9) th/mm3 Eos # (Auto) 0.2 (0.0-0.4) th/mm3 Baso # (Auto) 0.1 (0.0-0.2) th/mm3 WBC Differential . Diff Scan Auto diff confirmed Differential Comment . ESR 66 H (0-30) mm/hr Sodium 138 (136-145) meq/L Potassium 3.9 (3.5-5.1) meq/L Chloride 105 (98-107) meq/L Carbon Dioxide 27.0 (21.0-32.0) meq/L Anion Gap 6 (5-15) meq/L BUN 31 H (7-18) mg/dL Creatinine 1.35 H (0.50-1.00) mg/dL Estimated GFR 40 L (>89) mL/min Random Glucose 140 H (74-106) mg/dL Calcium 8.7 (8.5-10.1) mg/dL Total Bilirubin 0.2 (0.2-1.0) mg/dL AST 14 L (15-37) U/L ALT 19 (10-53) U/L Alkaline Phosphatase 75 (45-117) U/L C-Reactive Protein 4.09 H (0.00-0.30) mg/dL Total Protein 8.1 (6.4-8.2) g/dL Albumin 3.3 L (3.4-5.0) g/dL Imaging Data Radiologist's impression: Toe X-Ray 07/15/18 02:06 CONCLUSION: Bone erosion at the distal phalanx fifth toe terminal tuft most characteristic of osteomyelitis with overlying soft tissue swelling. Dislocation at the second and third metatarsophalangeal joints with additional fracture at the third toe. Evidence of osteomyelitis Discharge Plan Discharge Disposition Patient Disposition: 30 Still Patient Physicians Team ED Provider: John Camacho Primary Care Provider: Buzz Mcleod Attending Provider: Isha Rosario Status ED Status: Admitted Patient
[2018-07-15] MEDS ORDERED: Acetaminophen 325 MG Tablet PO PRN (05:23)
[2018-07-15] MEDS ORDERED: Vancomycin Inj 1,000 MG in Sodium Chlor 0.9% Inj 250 ML IV.SIG ONE (05:23)
[2018-07-15] MEDS ORDERED: Vancomycin Consult Pharmacy OTHER PRN ×2 (05:23→06:59)
[2018-07-15] MEDS ORDERED: Bisacodyl 10 MG Supp RECTAL PRN (05:23)
[2018-07-15] MEDS ORDERED: Dextrose 50% in Water 50 ML Vial IV.PUSH PRN (05:25)
[2018-07-15] MEDS: Sod Chloride 0.9% Inj 1,000 ML IV.CONT SCH ×2 (06:45→16:05)
[2018-07-15] MEDS ORDERED: MethylPREDNISolone Sod Succinate Inj 125 MG/2 ML Vial IV.PUSH ONE (07:10)
[2018-07-15 08:07] LABS: INR 0.9 Ratio; Prothrombin Time 9.6 sec (9.8-11.6)
[2018-07-15] MEDS: Insulin NovoLOG Aspart Correctional Sugar Inj SQ SCH ×4 (08:14→22:21)
[2018-07-15] MEDS: Famotidine PF Inj 20 MG/2 ML Vial IV.PUSH SCH ×4 (08:29→21:52)
[2018-07-15] MEDS: Piperacil/Tazo 3.375 GM Premix 50 ML IV.SIG SCH ×3 (09:21→22:21)
[2018-07-15] MEDS: Senna/Docusate Sodium 8.6/50 MG Tablet PO SCH ×2 (10:17→22:02)
[2018-07-15] MEDS: Gabapentin 300 MG Capsule PO SCH ×2 (10:17→22:16)
--- NOTE | 2018-07-15 15:47 | P.HPIM ---
History of Present Illness Primary Care Physician: Buzz Mcleod MD History of Present Illness: 58-yo f with h/o DM with neuropathy,previous multiple toes amputated presented with pain in the right little toe with associated blister for 1 day. No associated fevers or chills. she denies any trauma to her foot. She recently had a surgery on lt tendon achile and has a boot,which has made her walking difficult on the right foot. Review of systems is negative. On presentation to ER, VSS,rt 5th toe was noted to have a hemorrhagic blister which was drained and fluid sent for culture. labs--mild leucocytosis 11, ESR 66. Xray of rt foot with evidence of osteomyelitis of lt 5th toe. Patient was started on IV Vanc/Zosyn and admitted to medical floor. Patient had an allergic reaction to Vancomycin,she developed hives and itching. Vancomycin was stopped, she was given IV Solumedrol and Benadryl and these symptoms resolved. Inpatient Certification Inpatient Certification: I certify that the inpatient services were ordered in accordance with Medicare regulations governing the order. This includes certification that hospital inpatient services are reasonable and necessary and in the case of services not specified as inpatient-only under 42 CFR 419.22(n), that they are appropriately provided as inpatient services in accordance to with the 2-midnight benchmark under 43 CFR 412.3(e) Estimated Total Length of Stay (Days): 2 Plans for Post Hospital Care: Not yet determined Review of Systems Review of Systems: all other systems reviewed are negative [facility] Medical History Medical History Cataracts, bilateral (Chronic) Diabetes (Chronic) History of amputation of right great toe (Chronic) Hypertension (Chronic) Peripheral neuropathy (Chronic) Social History Social History Substance History: No History of Abuse Second Hand Smoke Exposure: No Smoking Status: Never smoker How Often Do You Have a Drink Containing Alcohol: Never Recent Travel in [facility] within the Last 8 Weeks: No Recent Out of Country Travel within the Last 8 Weeks: No Immunization History Tetanus Immunization: <5 Years Medications and Allergies Allergies Allergy/AdvReac Type Severity Reaction Status Date / Time hydrocodone Allergy Severe Rash, Verified 07/15/18 06:47 Generalized Sulfa (Sulfonamide Allergy Severe Anaphylaxis Verified 07/15/18 06:47 Antibiotics) vancomycin Allergy Severe Rash, Verified 07/15/18 06:58 Generalized *MDRO Multi-Drug Resistant AdvReac Unknown MRSA Uncoded 07/15/18 01:08 Organism Home Medications Medication Instructions Recorded Confirmed Type gabapentin 300 mg PO BID 07/15/18 07/15/18 History insulin aspart U-100 [Novolog 15 unit SUBCUT ACHS 07/15/18 07/15/18 History Flexpen U-100 Insulin] insulin degludec [Tresiba 36 units SUBCUT DAILY 07/15/18 07/15/18 History FlexTouch U-200] lisdexamfetamine [Vyvanse] 30 mg PO DAILY 07/15/18 07/15/18 History lisinopril 20 mg PO DAILY 07/15/18 07/15/18 History Active Medications: Active Medications Acetaminophen (Tylenol) 650 mg PO Q4H PRN PRN Reason: Temp > 100.4 Al Hydroxide/Mg Hydroxide (Milk Of MatchMinenoe Vick) 30 ml PO Q12H PRN PRN Reason: Mild Constipation Bisacodyl (Dulcolax Supp) 10 mg RECTAL DAILY PRN PRN Reason: SEVERE CONSITIPATION Dextrose (D50w Vial) 50 ml IV.PUSH UNSCH PRN PRN Reason: PER HYPOGLYCEMIA PROTOCOL Famotidine (Pepcid Pf Inj) 20 mg IV.PUSH Q12HR [facility] Last Admin: 07/15/18 08:29 Dose: 20 mg Gabapentin (Neurontin) 300 mg PO BID [facility] Last Admin: 07/15/18 10:17 Dose: 300 mg Glucagon (Glucagon Inj) 1 mg OTHER PRN PRN PRN Reason: for Hypoglycemia Protocol Sodium Chloride (Ns Inj) 1,000 mls @ 100 mls/hr IV.CONT .Q10H [facility] Last Infusion: 07/15/18 06:50 Dose: 0 mls/hr Piperacillin/Tazobactam/Dextrose (Zosyn 3.375 Gm Premix) 50 mls @ 100 mls/hr IV.SIG Q6H [facility] Last Infusion: 07/15/18 10:17 Dose: Infused Insulin Aspart (Novolog Insulin Correctional Sugar Inj) 0 unit SQ ACHS AND 3AM [place]; Protocol Last Admin: 07/15/18 08:14 Dose: Not Given Lactulose (Lactulose Liq) 30 ml PO DAILY PRN PRN Reason: SEVERE CONSITIPATION Ondansetron HCl (Zofran Inj) 4 mg IV.PUSH Q6H PRN PRN Reason: NAUSEA OR VOMITING Last Admin: 07/15/18 07:16 Dose: 4 mg Senna/Docusate Sodium (Mckenna-Colace) 1 tab PO BID [place] Last Admin: 07/15/18 10:17 Dose: 1 tab Sennosides (Senokot) 17.2 mg PO Q12H PRN PRN Reason: Moderate Constipation Physical Exam Vital signs: Last Vital Signs Temp 98.0 F 07/15/18 15:42 Pulse 76 07/15/18 15:42 Resp 16 07/15/18 15:42 BP 157/78 H 07/15/18 15:42 Pulse Ox 96 07/15/18 15:42 Intake & Output 07/13/18 07/14/18 07/15/18 07/16/18 06:59 06:59 06:59 06:59 Intake Total 120 / 120 50 / 50 Balance 120 / 120 50 / 50 Weight 113 kg Narrative: GENERAL:middle aged woman in fair general condition, obese, not in distress. HEENT:not pale,anicteric CARDIOVASCULAR: Regular rate and rhythm without murmurs, gallops, or rubs. RESPIRATORY: Clear to auscultation. Breath sounds equal bilaterally. No wheezes , rales, or rhonchi. GASTROINTESTINAL: Abdomen soft, non-tender, nondistended. Normal active bowel sounds MUSCULOSKELETAL: Extremities without clubbing, cyanosis, or edema.Rt foot with old scar medially due to previous amputation. Rt foot has 3 digits, 5th toe appears swollen,with erythema, no discharge noted, non tender. NEURO: Alert & Oriented x4 to person, place, time, situation. Moves all ext x4 Results Labs CBC & Chem 7: 07/15/18 02:15 07/15/18 02:15 Imaging Impressions Toe X-Ray 07/15/18 02:06 CONCLUSION: Bone erosion at the distal phalanx fifth toe terminal tuft most characteristic of osteomyelitis with overlying soft tissue swelling. Dislocation at the second and third metatarsophalangeal joints with additional fracture at the third toe. Caprini VTE Risk Assessment Caprini VTE Risk Assessment: Moderate/High Risk (score >= 2) Caprini Risk Assessment Model: Point Value = 1 Point Value = 2 Point Value = 3 Point Value = 5 Age 41-60 Minor surgery BMI > 25 kg/m2 Swollen legs Varicose veins or History of unexplained or recurrent spontaneous Oral contraceptives or hormone replacement Sepsis (< 1 month) Serious lung disease, including pneumonia (< 1 month) Abnormal pulmonary function Acute myocardial infarction Congestive heart failure (< 1 month) History of inflammatory bowel disease Medical patient at bed rest Age 61-74 Arthroscopic surgery Major open surgery (> 45 min) Laparoscopic surgery (> 45 min) Malignancy Confined to bed (> 72 hours) Immobilizing plaster cast Central venous access Age >= 75 History of VTE Family history of VTE Factor V Leiden Prothrombin [id number] Lupus anticoagulant Anticardiolipin antibodies Elevated serum homocysteine Heparin-induced thrombocytopenia Other congenital or acquired thrombophilia Stroke (< 1 month) Elective arthroplasty Hip, pelvis, or leg fracture Acute spinal cord injury (< 1 month) Prophylaxis Regimen: Total Risk Factor Score Risk Level Prophylaxis Regimen 0-1 Low Early ambulation 2 Moderate Order ONE of the following: *Sequential Compression Device (SCD) *Heparin 5000 units SQ BID 3-4 Higher Order ONE of the following medications: *Heparin 5000 units SQ TID *Enoxaparin/Lovenox 40 mg SQ daily (WT < 150 kg, CrCl > 30 mL/min) *Enoxaparin/Lovenox 30 mg SQ daily (WT < 150 kg, CrCl > 10-29 mL/min) *Enoxaparin/Lovenox 30 mg SQ BID (WT < 150 kg, CrCl > 30 mL/min) AND/OR *Sequential Compression Device (SCD) 5 or more Highest Order ONE of the following medications: *Heparin 5000 units SQ TID (Preferred with Epidurals) *Enoxaparin/Lovenox 40 mg SQ daily (WT < 150 kg, CrCl > 30 mL/min) *Enoxaparin/Lovenox 30 mg SQ daily (WT < 150 kg, CrCl > 10-29 mL/min) *Enoxaparin/Lovenox 30 mg SQ BID (WT < 150 kg, CrCl > 30 mL/min) AND *Sequential Compression Device (SCD) Assessment and Plan Plan 58 yo F with h/o DM with neuropathy,h/o toe amputations, HTN who presented with Rt 5th toes swelling/pain/erythema for 1 day. Xray with evidence of osteomyelitis of 5th digit distal phalanx. 1.Osteomyelitis of Rt 5th toe-- Started on IV Vanc/Zosyn initially. She reacted to Vanc with hives, hence it was discontinued.Gram stain--moderate gram +ve cocci in pairs--keep Zosyn for now pending culture. Will plan to consult ID once full culture is available to guide in appropriate abx choice and length of treatment. Podiatry consult pending. 2. DM type 2 with neuropathy-- blood glucose uncontrolled. On Tresiba 36 units daily and Novolog 15 u achs. keep on Sliding scale. Resume Tresiba. continue Gabapentin for neuropathy. 3. HTN--BP range systolic 120's -150's, resume home Lisinopril 20mg daily,can adjust accordingly to keep BP <120/80. heart health/DM diet. DVT ppx. H&P: Quality VTE Deep Vein Thrombosis/Pulmonary Embolism Present on Admission: No
[2018-07-16] MEDS: Sod Chloride 0.9% Inj 1,000 ML IV.CONT SCH ×3 (02:51→21:31)
[2018-07-16] MEDS: Piperacil/Tazo 3.375 GM Premix 50 ML IV.SIG SCH ×5 (02:58→21:22)
[2018-07-16] MEDS: Insulin NovoLOG Aspart Correctional Sugar Inj SQ SCH ×5 (03:18→21:23)
[2018-07-16] MEDS: Senna/Docusate Sodium 8.6/50 MG Tablet PO SCH ×2 (08:08→21:55)
[2018-07-16] MEDS: Gabapentin 300 MG Capsule PO SCH ×2 (08:08→21:22)
[2018-07-16] MEDS: Famotidine PF Inj 20 MG/2 ML Vial IV.PUSH SCH ×2 (08:10→21:23)
[2018-07-16] MEDS: Heparin - SQ 10,000 UNITS/ML Vial SQ SCH ×2 (08:10→21:22)
[2018-07-16] MEDS ORDERED: INSULIN DEGLUDEC SQ SCH (09:00)
[2018-07-16 09:10] LABS: Baso % (Auto) 0.2 % (0.0-2.0); Eos % (Auto) 0.1 % (0.0-4.0); Hematocrit 31.6 % (35.0-46.0); Hemoglobin 10.5 gm/dL (11.6-15.3); Lymph # (Auto) 1.5 th/mm3 (1.0-4.8); Lymph % (Auto) 12.8 % (9.0-44.0); Mean Corpuscular HGB Conc 33.1 % (32.0-36.0); Mean Corpuscular Hemoglobin 28.9 pg (27.0-34.0); Mean Corpuscular Volume 87.1 fL (80.0-100.0); Mean Platelet Volume 7.6 fL (7.0-11.0); Mono # (Auto) 0.7 th/mm3 (0.0-0.9); Mono % (Auto) 5.5 % (0.0-8.0); Neut # (Auto) 9.8 th/mm3 (1.8-7.7); Neut % (Auto) 81.4 % (16.0-70.0); Platelet Count 269 th/mm3 (150-450); Red Blood Count 3.63 mil/mm3 (4.00-5.30); Red Cell Distribution Width 13.9 % (11.6-17.2); White Blood Count 12.1 th/mm3 (4.0-11.0)
[2018-07-16 09:41] LABS: Calcium 7.9 mg/dL (8.5-10.1); Carbon Dioxide 23.9 meq/L (21.0-32.0); Potassium 3.9 meq/L (3.5-5.1)
--- NOTE | 2018-07-16 10:20 | P.PNIM ---
Subjective Interval history: no new complaints. Physical Exam Vital signs: Last Vital Signs Temp 98.7 F 07/16/18 08:00 Pulse 68 07/16/18 08:00 Resp 16 07/16/18 08:00 BP 125/69 07/16/18 08:00 Pulse Ox 98 07/16/18 08:00 Intake & Output 07/14/18 07/15/18 07/16/18 07/17/18 06:59 06:59 06:59 06:59 Intake Total 120 / 120 2200 / 2200 50 / 50 Balance 120 / 120 2200 / 2200 50 / 50 Weight 113 kg Narrative: GENERAL:middle aged woman in fair general condition, obese, not in distress. HEENT:not pale,anicteric CARDIOVASCULAR: Regular rate and rhythm without murmurs, gallops, or rubs. RESPIRATORY: Clear to auscultation. Breath sounds equal bilaterally. No wheezes , rales, or rhonchi. GASTROINTESTINAL: Abdomen soft, non-tender, nondistended. Normal active bowel sounds MUSCULOSKELETAL: Extremities without clubbing, cyanosis, or edema.Rt foot with old scar medially due to previous amputation. Rt foot has 3 digits, 5th toe appears swollen,with erythema, no discharge noted, non tender. NEURO: Alert & Oriented x4 to person, place, time, situation. Moves all ext x4 Results Labs CBC & Chem 7: 07/16/18 07:50 07/16/18 07:50 Labs: Microbiology 07/15/18 02:15 Abscess - Toe Gram Stain - Final Assessment and Plan Plan 58 yo F with h/o DM with neuropathy,h/o toe amputations, HTN who presented with Rt 5th toes swelling/pain/erythema for 1 day. Xray with evidence of osteomyelitis of 5th digit distal phalanx. 1.Osteomyelitis of Rt 5th toe-- Started on IV Vanc/Zosyn initially. She reacted to Vanc with hives, hence it was discontinued.Gram stain--moderate gram +ve cocci in pairs--keep Zosyn for now pending culture. Podiatry consult recs appreciated. planning for toe amputation on Tuesday, planning for runoff study prior which he will order and also requests Vascular consult for evaluation prior to surgery. 2. DM type 2 with neuropathy-- blood glucose uncontrolled. On Tresiba 36 units daily and Novolog 15 u achs. keep on Sliding scale. Resume Tresiba. continue Gabapentin for neuropathy. 3. HTN--BP within acceptable limits. continue home Lisinopril 20mg daily. heart health/DM diet. DVT ppx. Progress Note: Quality VTE Deep Vein Thrombosis/Pulmonary Embolism Present on Admission: No
--- NOTE | 2018-07-16 14:24 | P.CONVS ---
History of Present Illness Service: vascular surgery Consult date: 07/16/18 Reason for Consult: Osteomyelitis of 5th digit distal phalanx. Primary Care Provider: Buzz Mcleod MD Chief Complaint: right foot pain History of Present Illness: 58-year-old female with a past medical history of right foot osteomyelitis status post toe amputations in the past. She presents with a chief complaint of her right fifth toe pain and was diagnosed with right fifth toe osteo- myelitis. Vascular surgery was consulted to evaluate for adequate blood flow and need for revascularization. Patient denies any rest pain or claudication. Review of Systems All other systems reviewed negative except as stated in HPI [facility] - History History Provided By: Patient - Medical History Medical History: Medical History (Last Updated 07/16/18 @ 07:37 by Faheem Redmond MD) Cataracts, bilateral Diabetes History of amputation of right great toe Hypertension Peripheral neuropathy - Tobacco History Second Hand Smoke Exposure: No Smoking Status: Never smoker - Alcohol History How Often Do You Have a Drink Containing Alcohol: Never - Substance Use History Substance History: No History of Abuse - Travel History Recent Travel in the [place] Within the Last 8 Weeks: No Recent Travel Out of the Country Within the Last 8 Weeks: No - Immunization History Tetanus Immunization: <5 Years Medications and Allergies Active Medications: Active Medications Acetaminophen (Tylenol) 650 mg PO Q4H PRN PRN Reason: Temp > 100.4 Al Hydroxide/Mg Hydroxide (Milk Of Félix Vick) 30 ml PO Q12H PRN PRN Reason: Mild Constipation Bisacodyl (Dulcolax Supp) 10 mg RECTAL DAILY PRN PRN Reason: SEVERE CONSITIPATION Dextrose (D50w Vial) 50 ml IV.PUSH UNSCH PRN PRN Reason: PER HYPOGLYCEMIA PROTOCOL Famotidine (Pepcid Pf Inj) 20 mg IV.PUSH Q12HR [facility] Last Admin: 07/16/18 08:10 Dose: Not Given Gabapentin (Neurontin) 300 mg PO BID [facility] Last Admin: 07/16/18 08:08 Dose: 300 mg Glucagon (Glucagon Inj) 1 mg OTHER PRN PRN PRN Reason: for Hypoglycemia Protocol Heparin Sodium (Porcine) (Heparin Inj) 5,000 units SQ Q12H [facility] Last Admin: 07/16/18 08:10 Dose: Not Given Sodium Chloride (Ns Inj) 1,000 mls @ 100 mls/hr IV.CONT .Q10H [facility] Last Admin: 07/16/18 11:57 Dose: 100 mls/hr Piperacillin/Tazobactam/Dextrose (Zosyn 3.375 Gm Premix) 50 mls @ 100 mls/hr IV.SIG Q6H [facility] Last Admin: 07/16/18 09:11 Dose: Not Given Insulin Aspart (Novolog Insulin Correctional Sugar Inj) 0 unit SQ ACHS AND 3AM [facility]; Protocol Last Admin: 07/16/18 12:05 Dose: Not Given Lactulose (Lactulose Liq) 30 ml PO DAILY PRN PRN Reason: SEVERE CONSITIPATION Ondansetron HCl (Zofran Inj) 4 mg IV.PUSH Q6H PRN PRN Reason: NAUSEA OR VOMITING Last Admin: 07/15/18 07:16 Dose: 4 mg Pt Own Med: Inslulin (Degludec) 0 each SQ DAILY [facility] Senna/Docusate Sodium (Mckenna-Colace) 1 tab PO BID [facility] Last Admin: 07/16/18 08:08 Dose: 1 tab Sennosides (Senokot) 17.2 mg PO Q12H PRN PRN Reason: Moderate Constipation Allergies Allergy/AdvReac Type Severity Reaction Status Date / Time hydrocodone Allergy Severe Rash, Verified 07/15/18 06:47 Generalized Sulfa (Sulfonamide Allergy Severe Anaphylaxis Verified 07/15/18 06:47 Antibiotics) vancomycin Allergy Severe Rash, Verified 07/15/18 06:58 Generalized *MDRO Multi-Drug Resistant AdvReac Unknown MRSA Uncoded 07/15/18 01:08 Organism Home Medications Medication Instructions Recorded Confirmed Type gabapentin 300 mg PO BID 07/15/18 07/15/18 History insulin aspart U-100 [Novolog 15 unit SUBCUT ACHS 07/15/18 07/15/18 History Flexpen U-100 Insulin] insulin degludec [Tresiba 36 units SUBCUT DAILY 07/15/18 07/15/18 History FlexTouch U-200] lisdexamfetamine [Vyvanse] 30 mg PO DAILY 07/15/18 07/15/18 History lisinopril 20 mg PO DAILY 07/15/18 07/15/18 History Physical Exam Vital Signs / I&O: Vital Signs 07/15/18 15:42 07/15/18 19:22 07/15/18 20:00 Temperature 98.0 F Pulse Rate 76 76 Respiratory Rate 16 15 Blood Pressure 157/78 H Pulse Oximetry 96 07/15/18 21:00 07/16/18 00:00 07/16/18 04:25 Temperature 97.4 F L 97.8 F Pulse Rate 82 80 76 Respiratory Rate 18 17 Blood Pressure 131/64 119/59 L Pulse Oximetry 99 93 L 07/16/18 08:00 07/16/18 11:27 Temperature 98.7 F 98.8 F Pulse Rate 68 70 Respiratory Rate 16 16 Blood Pressure 125/69 169/79 H Pulse Oximetry 98 98 Intake & Output 07/15/18 07/16/18 07/16/18 18:59 06:59 18:59 Intake Total 1100 / 1100 1100 / 1100 1050 / 1050 Balance 1100 / 1100 1100 / 1100 1050 / 1050 Intake: IV 1100 / 1100 1100 / 1100 1050 / 1050 NS Inj 1,000 ML @ 100 mls/hr IV 1000 / 1000 1000 / 1000 1000 / 1000 .CONT .Q10H [facility] Rx#:[id number] Zosyn 3.375 GM Premix 50 ML @ 100 / 100 100 / 100 50 / 50 100 mls/hr IV.SIG Q6H [facility] Rx#: [id number] Neuro: Alert awake oriented x3 No neurological deficit HEENT: Normocephalic atraumatic Neck: Supple Heart: S1-S2 Lungs: Clear to auscultation bilateral Abdomen: Soft nontender nondistended Vascular: +2 palpable femoral pulses bilateral Multiphasic dorsalis pedis, posterior tibial signals bilateral Extremities: Right fifth toe erythema and swelling Laboratory Results - last 24 hr 07/15/18 07/15/18 07/16/18 17:50 20:42 07:33 WBC RBC Hgb Hct MCV MCH MCHC RDW Plt Count MPV Neut % (Auto) Lymph % (Auto) [place] % (Auto) Eos % (Auto) Baso % (Auto) Neut # (Auto) Lymph # (Auto) [place] # (Auto) Eos # (Auto) Baso # (Auto) WBC Differential Differential Comment Sodium Potassium Chloride Carbon Dioxide Anion Gap BUN Creatinine Estimated GFR POC Glucose 241 H 292 H 187 H Random Glucose Calcium 11/25/18 11/25/18 11/25/18 07:50 07:50 12:01 WBC 12.1 H RBC 3.63 L Hgb 10.5 L Hct 31.6 L MCV 87.1 MCH 28.9 MCHC 33.1 RDW 13.9 Plt Count 269 MPV 7.6 Neut % (Auto) 81.4 H Lymph % (Auto) 12.8 [place] % (Auto) 5.5 Eos % (Auto) 0.1 Baso % (Auto) 0.2 Neut # (Auto) 9.8 H Lymph # (Auto) 1.5 [place] # (Auto) 0.7 Eos # (Auto) 0.0 Baso # (Auto) 0.0 WBC Differential . Differential Comment Auto diff final Sodium 142 Potassium 3.9 Chloride 108 H Carbon Dioxide 23.9 Anion Gap 10 BUN 30 H Creatinine 1.18 H Estimated GFR 47 L POC Glucose 161 H Random Glucose 181 H Calcium 7.9 L D Microbiology 07/15/18 02:15 Gram Stain - Final Abscess - Toe Wound Culture - Preliminary Staphylococcus aureus Impressions Toe X-Ray 07/15/18 02:06 CONCLUSION: Bone erosion at the distal phalanx fifth toe terminal tuft most characteristic of osteomyelitis with overlying soft tissue swelling. Dislocation at the second and third metatarsophalangeal joints with additional fracture at the third toe. Assessment and Plan - Plan Right fifth toe osteomyelitis I will obtain ABIs and toe pressure and make final recommendation. If blood flow is compromised, will obtain an angiogram in a.m. Patient was instructed to be n.p.o. after breakfast. Thank you for allowing me to participate in this patient care. If you have any questions please do not hesitate to call my cell phone Félix Boudreaux MD [phone]
[2018-07-17] MEDS: Insulin NovoLOG Aspart Correctional Sugar Inj SQ SCH ×5 (02:17→23:47)
[2018-07-17] MEDS: Piperacil/Tazo 3.375 GM Premix 50 ML IV.SIG SCH ×4 (03:10→22:00)
[2018-07-17] MEDS ORDERED: Iohexol 350 MG/ML 50 ML Vial (for Cath Lab) IVCONTRAST ONE (07:16)
[2018-07-17] MEDS: Senna/Docusate Sodium 8.6/50 MG Tablet PO SCH ×2 (08:36→23:56)
[2018-07-17] MEDS: Gabapentin 300 MG Capsule PO SCH ×2 (08:36→21:43)
[2018-07-17] MEDS: Sod Chloride 0.9% Inj 1,000 ML IV.CONT SCH ×2 (08:37→18:27)
[2018-07-17] MEDS: Heparin - SQ 10,000 UNITS/ML Vial SQ SCH ×2 (08:37→23:47)
[2018-07-17] MEDS: Famotidine PF Inj 20 MG/2 ML Vial IV.PUSH SCH ×2 (09:00→21:43)
--- NOTE | 2018-07-17 09:14 | P.PNIM ---
Subjective Interval history: Plan for amputation of affected toe. Patient has also mellitus on x-ray. MRI pending for further evaluation of ostium mellitus. Cultures have grown staph aureus. Physical Exam Vital signs: Vital Signs 07/16/18 11:27 07/16/18 15:50 07/16/18 20:00 Temperature 98.8 F 98.7 F 98.7 F Pulse Rate 70 75 73 Respiratory Rate 16 16 16 Blood Pressure 169/79 H 140/86 154/79 H Pulse Oximetry 98 100 99 07/16/18 23:36 07/17/18 08:00 Temperature 98.2 F 98.0 F Pulse Rate 78 76 Respiratory Rate 20 16 Blood Pressure 158/91 H 143/75 H Pulse Oximetry 97 93 L Intake & Output 07/16/18 07/17/18 07/17/18 18:59 06:59 18:59 Intake Total 1550 / 1550 100 / 100 Balance 1550 / 1550 100 / 100 Intake: IV 1550 / 1550 100 / 100 NS Inj 1,000 ML @ 100 mls/hr IV 1450 / 1450 .CONT .Q10H [facility] Rx#:[id number] Zosyn 3.375 GM Premix 50 ML @ 100 / 100 100 / 100 100 mls/hr IV.SIG Q6H [facility] Rx#: [id number] Narrative: GENERAL: NAD, A&Ox3 HEAD: Normocephalic. NECK: Supple, trachea midline. No lymphadenopathy. EYES: No scleral icterus. No injection or drainage. CARDIOVASCULAR: Regular rate and rhythm without murmurs, gallops, or rubs. RESPIRATORY: Breath sounds equal bilaterally. No accessory muscle use. GASTROINTESTINAL: Abdomen soft, non-tender, nondistended. MUSCULOSKELETAL: No cyanosis, or edema. Erythema at the third digit of right foot, missing first and second digits. SKIN: Warm and dry. NEURO: No focal neurological deficits. Results - Labs CBC & Chem 7: 07/16/18 07:50 07/16/18 07:50 Laboratory Results - last 24 hr 07/16/18 07/16/18 07/16/18 07:50 12:01 16:56 Sodium 142 Potassium 3.9 Chloride 108 H Carbon Dioxide 23.9 Anion Gap 10 BUN 30 H Creatinine 1.18 H Estimated GFR 47 L POC Glucose 161 H 228 H Random Glucose 181 H Calcium 7.9 L D Microbiology 07/15/18 02:15 Abscess - Toe Gram Stain - Final 07/15/18 02:15 Abscess - Toe Wound Culture - Preliminary Staphylococcus aureus Assessment and Plan - Plan 58-year-old female with history of diabetic neuropathy, admitted secondary to ostium mellitus of the fifth digit of the right foot. Osteomyelitis, fifth toe, right foot Continue IV vancomycin Continue IV Zosyn Cultures grew staph aureus Podiatry following Vascular surgeon following Diabetes mellitus type 2 Follow blood sugars Insulin sliding scale Diabetic diet Continue Tresiba Diabetic neuropathy Continue gabapentin Hypertension Continue baseline treatment Follow blood pressures Adjust treatments as needed Continue lisinopril DVT prophylaxis Heparin
--- NOTE | 2018-07-17 11:30 | ECHRPT ---
EXAM DATE: 07/17/2018 11:21 AM EST AGE/SEX: 58 years / Female INDICATIONS: osteomyelitis CLINICAL DATA: This is the patient's initial encounter. Patient reports that signs and symptoms have been present for 4 - 6 days and indicates a pain score of 1/10. MEDICAL/SURGICAL HISTORY: . bilateral cataracts, diabetes, hypertension, peripheral neuropathy . right great toe amputation COMPARISON: No prior exams available for comparison. TECHNIQUE: Four-cuff ankle and brachial pressures were obtained. Pulse cuff waveform tracings of the ankles were recorded, and ankle-brachial indices were calculated. PRESSURES (mmHg): Brachial (arm) : RIGHT: iv site, LEFT: 149 Ankle : RIGHT: 85, LEFT: 146 VALERIA : RIGHT: 0.57, LEFT: 0.98 TBI : RIGHT: 0.17, LEFT: 0.50 FINDINGS: Pulsed-Cuff Waveform: There are good upstroke and a dicrotic downstroke of the tracings. Other: None. CONCLUSION: 1. Significantly diminished VALERIA and TBI on the right. 2. VALERIA on the left is within normal limits. TBI is mildly diminished. Electronically signed by: Reed Beckwith MD 07/17/2018 11:28 AM EST
[2018-07-17] MEDS ORDERED: Gadobutrol PF 2 MMOL/2 ML Vial (for RAD) IV.SIG ONE (13:21)
--- NOTE | 2018-07-17 13:57 | MR ---
EXAM DATE: 07/17/2018 1:33 PM EST AGE/SEX: 58 years / Female INDICATIONS: . Wound on right 5th metatarsal. CLINICAL DATA: This is the patient's subsequent encounter. Patient reports that signs and symptoms h ave been present for 1 week and indicates a pain score of 3/10. MEDICAL/SURGICAL HISTORY: Diabetes mellitus type II. Hypertension. . Right 1 and 4th toes ampu tated COMPARISON: [facility] [place], TOE RIGHT 3RD DIGIT MIN2V, 07/15/2018. . TECHNIQUE: Multiplanar, multisequence MRI examination was performed without contrast and after th e intravenous administration of 11 ml Gadavist (gadobutrol) single exam dose. FINDINGS: The T2 weighted images and postcontrast images demonstrate marrow edema within the distal phalanx of the fifth digit. There is subsequent enhancement of the distal phalanx and surrounding soft tissues c oncerning for osteomyelitis. No other significant abnormal marrow signal is identified within the osseous structures. No other abn ormal marrow enhancement is identified. There has been prior amputation of the first digit at the level the mid first metatarsal. There is be en amputation of the ray of the fourth digit. There is diffuse soft tissue edema along the dorsal aspect of the foot. CONCLUSION: 1. There is abnormal T2 signal in marrow enhancement involving the distal phalanx of the fifth digit concerning for osteomyelitis. 2. Previous amputations as above. 3. Diffuse soft tissue edema along the dorsal aspect of the foot. 4. No focal, drainable abscess identified. Electronically signed by: Reed Beckwith MD 07/17/2018 1:55 PM EST
[2018-07-17] MEDS ORDERED: Heparin/NS PF Inj 1,000 ML ONE (15:01)
[2018-07-17] MEDS ORDERED: fentaNYL Citrate Inj 100 MCG/2 ML Ampul ONE (15:02)
[2018-07-17] MEDS ORDERED: Lidocaine 2% Inj 50 ML Vial ONE (15:02)
[2018-07-17] MEDS ORDERED: Heparin 10,000 UNITS/10 ML Vial (for IV use) ONE (15:38)
--- NOTE | 2018-07-17 16:29 | CATHPROC ---
[employer] HIS Report Study Information Study Number Admission Scheduled Start Study Start [id number] Jul 15 2018 3:37AM 07/17/2018 Jul 17 2018 2:48PM [place] Service Cardiac Catheterization Admit Source Facility Department Emergency department [facility] - Child Welfare Caseworker Physician and Clinical Staff Initial Félix Vides Radiology Interventional Physician Isha Rosado,RN Recorder Nathaniel Berrios,RT(R) ScrRico Lamb,RT(R) Procedures Performed Procedure Location (Site) Vessel Name LV Gram-hand inj. LV LV Ventricle SUPERVISOR VAT HOUSE Popliteal R (R10) Popliteal PTCA ADD ON'S Wire insertion Fem Art (left) Femoral Art Equipment Time International Accounting Manager Description Size Mfg Part Number Used/Scraped PERCLOSE, PRO GLIDE CLOSER 16:12 [employer] FR 6 [id number] *[id number] Used DEVICE [id number] 14:59 [employer] WIRE, SUPERCORE 190CM Used *[id number] 15:47 [employer] WIRE, SUPERCORE 300CM 300CM Used *[id number] 15:16 ANGIO-DYNAMICS OMNI FLUSH 65CM CATHETER FR 5 Used *[id number] INTRODUCER SET, 14:59 [employer] FR 5 [id number] *[id number] Used MICROPUNCTURE STIFF BALLOON, ADMIRAL IN.PACT 4 X 16:03 [employer] 130CM [id number] Used 40 130CM BALLOON, EVERCROSS 4 X 60 [id number] 15:55 [employer] 4 X 60 Used 135CM *[id number] 14:59 [employer] PACK, CCL CUSTOM * Used *[id number] 15:47 NicOx 30 JAIRO INDEFLATOR Used *[id number] PROBE COVER, STERILE [id number] 14:59 [employer] MEDICAL * Used ULTRASOUND W/ GEL *[id number] 14:59 NAMIC MANIFOLD, 4 PORT * Used *[id number] 15:22 NAMIC TUBING, HIGH PRESSURE 48" 48" Used *[id number] 14:59 NYCOMED OMNIPAQUE, 300 MG, 150ML 150ML [id number] Used 14:59 NYCOMED OMNIPAQUE, 300 MG, 50ML 50ML [id number] Used CATHETER, QUICK CROSS [id number] 15:45 [employer] .035 Used EXTREME 135CM *[id number] 14:59 TERUMO MEDICAL SHEATH, FR5 TERUMO (10CM) FR 5 Used *[id number] 15:35 TERUMO MEDICAL/TRISHA CATHETER, FR5 ANGLED 100CM FR 5 [id number] *[id number] Used SHEATH, FR6 PINNACLE 15:40 TERUMO MEDICAL/TRISHA FR 6 [id number] Used DESTINATION 65CM WIRE, ANGLED GLIDE .035 [id number] 14:59 TERUMO MEDICAL/TRISHA 260CM Used 260CM *[id number] WIRE, STRIGHT GLIDE STIFF [id number] 15:43 TERUM[employer] MEDICAL/TRISHA 260CM Used .035 260CM TAVR *[id number] TAVR Equipment Model, Serial, Lot Number and Expiration Data Description Model Number Serial Number Lot Number Expiration Date BALLOON, ADMIRAL IN.PACT 4 X [id number] 12-28-2020 40 130CM BALLOON, EVERCROSS 4 X 60 [id number] 11-06-2020 135CM CATHETER, QUICK CROSS EXTREME [id number] 07-09-2018 135CM PERCLOSE, PRO GLIDE CLOSER [id number] 01-19-2019 DEVICE History: Allergies Allergy Reaction No Known Allergies *MDRO Multi-Drug Resistant MRSA Organism hydrocodone Rash, Generalized Sulfa (Sulfonamide Antibiotics) Anaphylaxis vancomycin Rash, Generalized History: Risk Factors Family History of Hypertension Dyslipidemia Previous OR Previous Heart Failure Premature CAD Yes No No No No Prior Valve Prior PCI Prior CABG Surgery No No No Cerebrovascular Peripheral Artery Chronic Lung On Dialysis Diabetes Diabetes Therapy Disease Disease Disease No No No No Yes Insulin Labs Hgb (g/dl) Hct (%) WBC (l/cumm) Platelets (thousands) 11.60-17.00 35.00-51.00 4.00-11.00 150.00-450.00 10.5 31.6 12.1 269 Glucose (mg/dl) BUN (mg/dl) Creatinine (mg/dl) BUN:Creatinine (1:x) 74.00-106.00 7.00-18.00 0.50-1.30 10.00-20.00 181 30 1.2 25 Na (meq/l) K (meq/l) 136.00-145.00 3.50-5.10 142 3.9 INR (PTT:PT) 0.90-1.10 0.9 CPK-MB (ng/ML) 0.50-3.60 Not Drawn Medication Medication Total Dose (Bolus/Oral) Medication Total Dosage/Unit FENTANYL 25 mcg HEPARIN 3000 units VERSED 1 mg Medications (Bolus/Oral) Medication Time Given Dosage/Unit Administered By Reason VERSED 07/17/2018 3:27:11 PM 1 mg Isha Rosado 1 mg VERSED given in lab by Isha Rosado, YORDAN via Peripheral IV. FENTANYL 07/17/2018 3:28:15 PM 25 mcg Isha Rosado 25 mcg FENTANYL given in lab by Isha Rosado, YORDAN via Peripheral IV. HEPARIN 07/17/2018 3:42:02 PM 3000 units Isha Rosado 3000 units HEPARIN given in lab by Isha Rosado, YORDAN via Peripheral IV. Medication (Drip) Medication Time Given Dosage/Unit Concentration/Unit Diluent (ml) Solution IV Solutions 07/17/2018 2:56:13 PM 50 mL (IV) NaCl .9 Patient arrived on IV Solutions via Peripheral IV. Pump/Drip Flow using NaCl .9. Initial Case Assessment Cardiovascular HR NIBP Chest Pain 79 196/95 0 Edema Present Skin color Skin Moderate Normal Warm Dry Circulatory - Right Pulses Dorsalis Pedis Posterior Tibial Femoral d d 2 Scale (0,1,2,3,4,d) Circulatory - Left Pulses Dorsalis Pedis Posterior Tibial Femoral d d 2 Scale (0,1,2,3,4,d) Neurological State Oriented to time-place- Alert Moves all extremities person Respiration - General Respiration Rate SpO2 (%) (B/min) 20 97 Chronological Log Time Study Chronological Log 14:48:19 Patient arrived via Bed. 14:48:20 Patient Name, D.O.B, / Armband Verified By R.N. 14:48:21 Consent signed by the physician and the patient and verified by the Child Welfare Caseworker staff. 14:48:22 Pre-op and post- op instructions given; patient acknowledges understanding of instruction s. 14:48:45 Verbal Stimulation=2 Physical Stimulation=2 Airway=2 Respiration=2 TOTAL=8. (0=absent, 1= limited, 2=present) Vitals capture started with the following parameters, Patient=Adult, Interval=5 min, Initial Pr xugwpd=279 mmHg, 14:55:07 Deflation Rate=5 mmHg, Cuff placed on Left Arm 14:55:23 Patient has been NPO for More than 6Hrs. 14:55:27 Skin Breakdown- wounds on bilat lower extremities 14:55:42 Patient Warmer Placed on the Table. 14:55:43 Mavis Prominences Protected 14:55:55 A # 20 IV was noted in the Forearm (right). Grade = 0 14:56:13 Patient arrived on IV Solutions via Peripheral IV. Pump/Drip Flow using NaCl .9. 14:56:21 History and physical on the chart or being dictated. Assessment: Initial Case, HR=79 BPM, SGTQ=394/95 mmhg, Chest Pain=0, Edema=Mod, Color=Normal, S kin = Warm, Dry Right Pulses: David Ped=d, Post Tib=d, Femoral=2 14:56:22 Left Pulses: David Ped=d, Post Tib=d, Femoral=2 Neurological: State=Alert, Ox3, ELKINS Respiration: Resp=20 B/min, SpO2=97 % 14:56:53 HR=79 bpm, QBQK=511/95 mmhg, SpO2=99.0 %, Resp=18 B/min 15:00:51 HR=80 bpm, FDQH=483/97 mmhg, SpO2=98.0 %, Resp=14 B/min 15:01:19 Reference ECG taken 15:05:50 HR=78 bpm, IRSZ=548/95 mmhg, SpO2=95.0 %, Resp=17 B/min, Olivarez=2 15:07:34 Bilateral groins prepped with 2% chlorhexidine, and draped after a 3 minute waiting time. 15:10:53 HR=78 bpm, QKHD=816/92 mmhg, SpO2=93.0 %, Resp=20 B/min, Olivarez=2 15:12:50 MD paged 15:14:11 Pressure channel 2 zeroed. 15:15:54 HR=78 bpm, KCQW=414/97 mmhg, SpO2=99.0 %, Resp=17 B/min, Olivarez=2 15:20:49 HR=77 bpm, DJLN=520/93 mmhg, SpO2=93.0 %, Resp=21 B/min, Olivarez=2 15:25:45 MD arrived. 15:25:52 HR=76 bpm, LILA=960/88 mmhg, SpO2=92.0 %, Resp=18 B/min, Olivarez=2 15:27:11 1 mg VERSED given in lab by Isha Rosado, RN via Peripheral IV. Time Out. Correct patient, correct procedure, correct physician, labs, allergies, and equipment verified with laborer construction or leak gang 15:27:23 team present. Fire risk assesment completed (see hard stop sheet for coding). Time Out Conc urred by MD and individual staff in procedure. 15:28:15 25 mcg FENTANYL given in lab by Isha Rosado, RN via Peripheral IV. 15::09 Case Start 15::27 Verbal Stimulation=2 Physical Stimulation=2 Airway=2 Respiration=2 TOTAL=8. (0=absent, 1=li mited, 2=present) 15:30:06 Access site was Left Femoral Artery. A INTRODUCER SET, MICROPUNCTURE STIFF FR 5 was advanced into the Fem Art (left) using the Pennieu cash 15:30:14 technique. 15:30:30 A WIRE, SUPERCORE 190CM was inserted via Fem Art (left). A SHEATH, FR5 TERUMO (10CM) FR 5 was exchanged in the Fem Art (right). This was necessary in or danilo to 15:30:41 accomodate a larger catheter. 15:30:53 HR=78 bpm, PSYG=947/94 mmhg, SpO2=89.0 %, Resp=20 B/min, Olivarez=2 A OMNI FLUSH 65CM CATHETER FR 5 was advanced over a wire. OMNIPAQUE, 300 MG, 150ML 150ML was us ed for 15:31:09 injections. 15:33:25 The LV was manually injected with 10 cc's and visualized. OMNIPAQUE, 300 MG, 150ML 150ML us ed. 15:33:38 A WIRE, ANGLED GLIDE .035 260CM 260CM was inserted via Fem Art (left). After removing the current catheter a CATHETER, FR5 ANGLED 100CM FR 5 was advanced over a WIRE, ANGLED 15:35:40 GLIDE .035 260CM 260CM. 15:35:52 HR=77 bpm, TJYH=893/89 mmhg, SpO2=97.0 %, Resp=19 B/min, Olivarez=2 15:35:57 Manual injections down right leg through 5 portuguese glide cath. 15:40:51 HR=77 bpm, CBDL=739/95 mmhg, SpO2=98.0 %, Resp=19 B/min, Olivarez=2 A SHEATH, FR6 PINNACLE DESTINATION 65CM FR 6 was exchanged in the Fem Art (left). This was nece ssary in order 15:41:49 to accomodate a larger catheter. 15:42:02 3000 units HEPARIN given in lab by Isha Rosado, RN via Peripheral IV. 15:42:58 A WIRE, STRIGHT GLIDE STIFF .035 260CM TAVR 260CM was inserted via Fem Art (left). 15:45:54 HR=76 bpm, EEJV=702/88 mmhg, SpO2=98.0 %, Resp=17 B/min A CATHETER, QUICK CROSS EXTREME 135CM .035 was advanced over a wire. OMNIPAQUE, 300 MG, 150ML 1 50ML 15:46:48 was used for injections. 15:47:04 OMNIPAQUE, 300 MG, 50ML 50ML and 30 JAIRO INDEFLATOR added. 15:50:51 HR=74 bpm, ZRFB=591/93 mmhg, SpO2=98.0 %, Resp=18 B/min, Pain=0, Lasha=10, Olivarez=2 A BALLOON, EVERCROSS 4 X 60 135CM 4 X 60 was inserted over WIRE, SUPERCORE 300CM 300CM via the Fem Art 15:55:39 (left). 15:55:52 HR=77 bpm, TYNM=920/99 mmhg, SpO2=99.0 %, Resp=20 B/min, Pain=0, Lasha=10, Olivarez=2 15:56:03 In the Popliteal R (R10) a BALLOON, EVERCROSS 4 X 60 135CM 4 X 60 was inflated to 8 atms fo r 30 seconds. 15:59:27 In the Popliteal R (R10) a BALLOON, EVERCROSS 4 X 60 135CM 4 X 60 was inflated to 8 atms fo r 120 seconds. 16:00:55 HR=78 bpm, UUOE=129/94 mmhg, SpO2=97.0 %, Resp=19 B/min, Pain=0, Lasha=10, Loivarez=2 16:01:10 In the Popliteal R (R10) a BALLOON, EVERCROSS 4 X 60 135CM 4 X 60 was inflated to 8 atms fo r 120 seconds. 16:02:24 Balloon Removed. A BALLOON, ADMIRAL IN.PACT 4 X 40 130CM 130CM was inserted over WIRE, SUPERCORE 300CM 300CM via the 16:03:59 Fem Art (left). 16:04:07 In the Popliteal R (R10) a BALLOON, ADMIRAL IN.PACT 4 X 40 130CM 130CM was inflated to 8 at ms for 180 seconds. 16:05:56 HR=78 bpm, NJNS=530/90 mmhg, SpO2=95.0 %, Resp=20 B/min, Pain=0, Lasha=10, Olivarez=2 16:07:30 Balloon Removed. 16:10:21 Wire removed 16:10:57 HR=76 bpm, BVKW=313/95 mmhg, SpO2=97.0 %, Resp=21 B/min, Pain=0, Lasha=10, Olivarez=2 16:11:46 An injection in the Fem Art (left) was made through the SHEATH, FR6 PINNACLE DESTINATION 65 CM FR 6. 16:12:08 PERCLOSE, PRO GLIDE CLOSER DEVICE FR 6 placement in the Fem Art (left) 16:15:03 Case End (Physician broke scrub) 16:15:18 Catheter(s) removed without difficulty 16:15:25 No case complications noted. 16:15:31 Bedside Report will be given. 16:15:33 Implantable Device card placed in patient's chart. 16:15:56 HR=77 bpm, FFIF=931/86 mmhg, SpO2=96.0 %, Resp=20 B/min, Pain=0, Lasha=10, Olivarez=2 16:19:09 Sterile dressing applied to site 16:20:58 HR=75 bpm, DFYC=568/91 mmhg, SpO2=96.0 %, Resp=26 B/min, Pain=0, Lasha=10, Olivarez=2 16:24:45 Patient moved to stretcher 16:24:47 Vitals capture stopped. End Study - Contrast Media Used In Study Contrast Total Opened (mL) Total Used (mL) Total Wasted (mL) Omnipaque 300 50 50 0 End Study - Maximum Contrast Load Max Contrast Load (mL) 471.6 End Study - Radiation Exposure Fluoro Time (minutes) 6.6 End Study - Sheaths Sheaths Pulled By Sheath Hold Time (min) Félix Boudreaux End Study - Patient Disposition Complications Transferred To Interventional Outcome No Child Welfare Caseworker Holding successful
--- NOTE | 2018-07-17 16:46 | P.OP ---
Preoperative Diagnosis: Right lower extremity critical limb ischemia with tissue loss Postoperative Diagnosis: Right lower extremity critical limb ischemia with tissue loss Date of procedure: 07/17/18 Procedure: #1 ultrasound-guided access of the left common femoral artery #2 abdominal aortogram #3 right lower extremity third order angiogram #4 balloon angioplasty of the right popliteal artery using a 4 mm balloon followed by drug-coated balloon #5 Perclose of the left common femoral artery #6 radiological supervision limitation #7 conscious sedation times 1 hour Anesthesia: other (Moderate conscious sedation) Surgeon: Félix Boudreaux MD Estimated blood loss (mL): 5 Operation and Findings: Finding #1 the infrarenal abdominal aorta, bilateral common iliac artery, bilateral external iliac artery, bilateral common femoral artery was noted to be patent with no evidence of significant stenosis. #2 the right common femoral artery, right superficial femoral artery, supragenicular popliteal artery with noted to be patent with no evidence of significant stenosis. #3 there is occlusion of the infragenicular popliteal artery for segment that measures approximately 40 mm in length with reconstitution of the vessel. The the right anterior tibial artery, peroneal artery was patent with two-vessel runoff to the foot. The right posterior tibial artery is occluded proximally and reconstitutes at the level of the ankle. #4 the right popliteal artery occlusion was treated using balloon angioplasty via a 4 mm balloon followed by a 4 mm drug-coated balloon with successful results. There is no flow-limiting dissection or residual stenosis at the end of the procedure. Description of the procedure The patient was taken to the operating room placed supine on the OR table. After adequate sedation the patient was prepped and draped in the standard sterile fashion. Timeout was called with all members in the OR in agreement. 1 % lidocaine was injected in the left groin, using ultrasound guidance access the left common femoral artery. A supra core wire was introduced in the abdominal aorta and a 5 [place] sheath sheath was placed in the left common femoral artery. A catheter was placed into the abdominal aorta and an angiogram was performed. A catheter was placed on the right popliteal artery and a right lower extremity third order angiogram was performed. Patient was heparinized and a 6 [place] destination sheath was placed with the tip in the right superficial femoral artery. I was able to cross the popliteal artery occlusion and the vessel was treated using a 4 mm by 40 balloon followed by a 4 mm by 40 drug-coated balloon. Completion angiogram was performed. At this point all catheter and sheath were removed hemostasis was achieved by applying the Perclose device the left common femoral artery. The patient had a palpable dorsalis pedis pulse bilaterally at the end of the procedure. Conclusion The patient presented with a right fifth toe osteomyelitis. She was noted to have an VALERIA of 0.5 and toe pressure of 0.14. She was taken to the operating room for diagnostic angiography and was noted to have occlusion of her right popliteal artery. There was treated using endovascular technique. Now she has palpable dorsalis pedis pulse and she is cleared from vascular surgery standpoint for her podiatry operation. Patient will need Plavix for 6 weeks. We will hold off this treatment until done with her surgery.
[2018-07-17] MEDS ORDERED: Morphine Sulfate Inj 2 MG/ML Vial IV.PUSH PRN (20:08)
[2018-07-17] MEDS ORDERED: Lisinopril 20 MG Tablet PO ONE (20:15)
--- NOTE | 2018-07-17 21:13 | P.CONPOD ---
History of Present Illness Service: Podiatry Consult date: 07/17/18 Reason for Consult: right 5th toe infection Primary Care Provider: Buzz Mcleod MD Chief Complaint: right foot infection History of Present Illness: Patient has been in a cam boot x 1 week to left lower extremity to attempt nonoperative treatment for an achilles tendon rupture. She noticed a blister a day before arrival through ED to her Right 5th toe. She has no pain secondary to neuropathy, but came in because she did not like how it looked and she has history of multiple toe amputations secondary to osteomyelitis. Review of Systems All other systems reviewed negative except as stated [facility] - History History Provided By: Patient - Medical History Medical History: Medical History (Last Updated 07/16/18 @ 07:37 by Faheem Redmond MD) Cataracts, bilateral Diabetes History of amputation of right great toe Hypertension Peripheral neuropathy - Tobacco History Second Hand Smoke Exposure: No Smoking Status: Never smoker - Alcohol History How Often Do You Have a Drink Containing Alcohol: Never - Substance Use History Substance History: No History of Abuse - Travel History Recent Travel in the [place] Within the Last 8 Weeks: No Recent Travel Out of the Country Within the Last 8 Weeks: No - Immunization History Tetanus Immunization: <5 Years Medications and Allergies Active Medications: Active Medications Acetaminophen (Tylenol) 650 mg PO Q4H PRN PRN Reason: Temp > 100.4 Al Hydroxide/Mg Hydroxide (Milk Of Magnnoe Liq) 30 ml PO Q12H PRN PRN Reason: Mild Constipation Bisacodyl (Dulcolax Supp) 10 mg RECTAL DAILY PRN PRN Reason: SEVERE CONSITIPATION Clonidine HCl (Catapres) 0.1 mg PO Q6H PRN PRN Reason: SBP>160 or DBP>100; HR>60 Dextrose (D50w Vial) 50 ml IV.PUSH UNSCH PRN PRN Reason: PER HYPOGLYCEMIA PROTOCOL Famotidine (Pepcid Pf Inj) 20 mg IV.PUSH Q12HR [facility] Last Admin: 07/17/18 09:00 Dose: Not Given Gabapentin (Neurontin) 300 mg PO BID [facility] Last Admin: 07/17/18 08:36 Dose: 300 mg Glucagon (Glucagon Inj) 1 mg OTHER PRN PRN PRN Reason: for Hypoglycemia Protocol Heparin Sodium (Porcine) (Heparin Inj) 5,000 units SQ Q12H [facility] Last Admin: 07/17/18 08:37 Dose: Not Given Sodium Chloride (Ns Inj) 1,000 mls @ 100 mls/hr IV.CONT .Q10H [facility] Last Admin: 07/17/18 18:27 Dose: 100 mls/hr Piperacillin/Tazobactam/Dextrose (Zosyn 3.375 Gm Premix) 50 mls @ 100 mls/hr IV.SIG Q6H [facility] Last Infusion: 07/17/18 10:35 Dose: Infused Insulin Aspart (Novolog Insulin Correctional Sugar Inj) 0 unit SQ ACHS AND 3AM [place]; Protocol Last Admin: 07/17/18 17:36 Dose: Not Given Lactulose (Lactulose Liq) 30 ml PO DAILY PRN PRN Reason: SEVERE CONSITIPATION Lisinopril (Prinivil) 20 mg PO DAILY [facility] Morphine Sulfate (Morphine Inj) 2 mg IV.PUSH Q4H PRN PRN Reason: BREAKTHROUGH PAIN Ondansetron HCl (Zofran Inj) 4 mg IV.PUSH Q6H PRN PRN Reason: NAUSEA OR VOMITING Last Admin: 07/15/18 07:16 Dose: 4 mg Oxycodone/Acetaminophen (Percocet 5/325 Mg) 1 tab PO Q4H PRN PRN Reason: pain 3 - 10 Pt Own Med: Inslulin (Degludec) 0 each SQ DAILY [facility] Senna/Docusate Sodium (Mckenna-Colace) 1 tab PO BID [facility] Last Admin: 07/17/18 08:36 Dose: 1 tab Sennosides (Senokot) 17.2 mg PO Q12H PRN PRN Reason: Moderate Constipation Sodium Chloride (Ns Flush) 2 ml IV.FLUSH BID [facility] Sodium Chloride (Ns Flush) 2 ml IV.FLUSH PRN PRN PRN Reason: FLUSH AFTER USING IV ACCESS Allergies Allergy/AdvReac Type Severity Reaction Status Date / Time hydrocodone Allergy Severe Rash, Verified 07/15/18 06:47 Generalized Sulfa (Sulfonamide Allergy Severe Anaphylaxis Verified 07/15/18 06:47 Antibiotics) vancomycin Allergy Severe Rash, Verified 07/15/18 06:58 Generalized *MDRO Multi-Drug Resistant AdvReac Unknown MRSA Uncoded 07/15/18 01:08 Organism Home Medications Medication Instructions Recorded Confirmed Type gabapentin 300 mg PO BID 07/15/18 07/15/18 History insulin aspart U-100 [Novolog 15 unit SUBCUT ACHS 07/15/18 07/15/18 History Flexpen U-100 Insulin] insulin degludec [Tresiba 36 units SUBCUT DAILY 07/15/18 07/15/18 History FlexTouch U-200] lisdexamfetamine [Vyvanse] 30 mg PO DAILY 07/15/18 07/15/18 History lisinopril 20 mg PO DAILY 07/15/18 07/15/18 History Physical Exam Vital signs: Vital Signs 07/16/18 23:36 07/17/18 08:00 07/17/18 12:00 Temperature 98.2 F 98.0 F 98.8 F Pulse Rate 78 76 78 Respiratory Rate 20 16 18 Blood Pressure 158/91 H 143/75 H 189/88 H Pulse Oximetry 97 93 L 96 07/17/18 12:15 07/17/18 17:01 Temperature Pulse Rate Respiratory Rate Blood Pressure 158/80 H Pulse Oximetry 96 Intake & Output 07/17/18 07/17/18 07/18/18 06:59 18:59 06:59 Intake Total 100 / 100 50 / 50 Balance 100 / 100 50 / 50 Intake: IV 100 / 100 50 / 50 Zosyn 3.375 GM Premix 50 ML @ 100 / 100 50 / 50 100 mls/hr IV.SIG Q6H [facility] Rx#: [id number] Other: Date of Last Bowel Movement 07/16/18 Narrative: Right 5th toe with necrotic bulla noted to entire distal aspect of digit. Warm skin temperature. Edema present to dorsal foot and erythema streaking to midfoot dorsally Results - Labs CBC & Chem 7: 07/16/18 07:50 07/16/18 07:50 Microbiology 07/15/18 02:15 Abscess - Toe Gram Stain - Final 07/15/18 02:15 Abscess - Toe Wound Culture - Final Staphylococcus aureus - Imaging Impressions Extremity Arterial Study 07/16/18 00:00 CONCLUSION: 1. Significantly diminished VALERIA and TBI on the right. 2. VALERIA on the left is within normal limits. TBI is mildly diminished. Foot MRI 07/17/18 00:00 CONCLUSION: 1. There is abnormal T2 signal in marrow enhancement involving the distal phalanx of the fifth digit concerning for osteomyelitis. 2. Previous amputations as above. 3. Diffuse soft tissue edema along the dorsal aspect of the foot. 4. No focal, drainable abscess identified. Assessment and Plan - Assessment (1) Osteomyelitis of toe of right foot Code(s): M86.9 - Osteomyelitis, unspecified Status: Acute - Plan NPO after midnight tonight To OR tomorrow afternoon for amputation right 5th toe Discussed risks, benefits, complications
[2018-07-18] MEDS: Sod Chloride 0.9% Inj 1,000 ML IV.CONT SCH ×4 (03:23→13:50)
[2018-07-18] MEDS: Piperacil/Tazo 3.375 GM Premix 50 ML IV.SIG SCH ×4 (03:55→22:11)
[2018-07-18 05:51] LABS: Baso % (Auto) 0.4 % (0.0-2.0); Eos # (Auto) 0.2 th/mm3 (0.0-0.4); Hematocrit 31.4 % (35.0-46.0); Hemoglobin 10.6 gm/dL (11.6-15.3); Lymph # (Auto) 1.4 th/mm3 (1.0-4.8); Lymph % (Auto) 13.8 % (9.0-44.0); Mean Corpuscular HGB Conc 33.9 % (32.0-36.0); Mean Corpuscular Hemoglobin 28.8 pg (27.0-34.0); Mean Corpuscular Volume 84.9 fL (80.0-100.0); Mean Platelet Volume 7.5 fL (7.0-11.0); Mono # (Auto) 0.6 th/mm3 (0.0-0.9); Mono % (Auto) 5.5 % (0.0-8.0); Neut # (Auto) 8.1 th/mm3 (1.8-7.7); Neut % (Auto) 78.3 % (16.0-70.0); Platelet Count 292 th/mm3 (150-450); Red Cell Distribution Width 13.5 % (11.6-17.2); White Blood Count 10.3 th/mm3 (4.0-11.0)
[2018-07-18 06:18] LABS: Albumin 2.9 g/dL (3.4-5.0); Anion Gap 8 meq/L (5-15); Aspartate Aminotransferase 9 U/L (15-37); Blood Urea Nitrogen 26 mg/dL (7-18); Calcium 8.4 mg/dL (8.5-10.1); Carbon Dioxide 26.4 meq/L (21.0-32.0); Chloride 103 meq/L (98-107); Glomerular Filtration Rate 44 mL/min (>89); Glucose,Random 209 mg/dL (74-106); Potassium 3.9 meq/L (3.5-5.1); Sodium 137 meq/L (136-145)
[2018-07-18 06:20] LABS: Alanine Aminotransferase 14 U/L (10-53); Alkaline Phosphatase 57 U/L (45-117); Total Protein 7.1 g/dL (6.4-8.2)
[2018-07-18] MEDS: Insulin NovoLOG Aspart Correctional Sugar Inj SQ SCH ×5 (06:26→22:00)
--- NOTE | 2018-07-18 07:46 | MB ---
cc: Es Mayes DPM DATE: 07/16/2018 REASON FOR CONSULTATION: Right fifth digit osteomyelitis. HISTORY OF PRESENT ILLNESS: The patient is a 58-year-old female with multiple amputations on the right foot. She denies any nausea, vomiting, fever, diarrhea or chills. PAST MEDICAL HISTORY: Cataracts, diabetes, hypertension, neuropathy. PAST SURGICAL HISTORY: Multiple amputations, right digits. SOCIAL HISTORY: Denies smoking, alcohol, illicit drugs. ALLERGIES: HYDROCODONE, SULFA, VANCOMYCIN. MEDICATIONS: Per chart. PHYSICAL EXAMINATION: DP and PT diminished. Right foot with prior amputations of the first ray and digit. The second and digits are dislocated and dorsiflexed. The right fifth digit is swollen and erythematous, but there is no discharge. Protective sensation grossly diminished. IMAGING DATA: X-rays, right foot, nonweightbearing, 3 views, on 07/15/2018 which indicated distal phalanx erosion of the fifth digit and there were some cortical irregularities. There is dislocation of the second and third digits at the MP joint as well too. ASSESSMENT: 1. Diabetes mellitus with neuropathy. 2. Right fifth digit osteomyelitis. PLAN: I had a long discussion with the patient regarding her present presentation. I discussed the benefits of a right transmetatarsal amputation. The patient is deferring this at this point in time given she has a trip to [place] in July 2018. She would like to be conservative or as minimally invasive as possible. I discussed with the patient that the least invasive would be a right fifth digit amputation versus IV antibiotics. She will need a vascular workup and a consult to clear the patient for the OR prior to any amputation. We will continue to follow the patient while in house. Es Mayes DPM SR/ellie/jack , 04:01 PM , 04:08 PM
[2018-07-18] MEDS: Gabapentin 300 MG Capsule PO SCH ×2 (08:44→21:56)
[2018-07-18] MEDS: Heparin - SQ 10,000 UNITS/ML Vial SQ SCH ×2 (08:44→21:55)
[2018-07-18] MEDS: Famotidine PF Inj 20 MG/2 ML Vial IV.PUSH SCH ×2 (08:45→22:02)
[2018-07-18] MEDS: Senna/Docusate Sodium 8.6/50 MG Tablet PO SCH ×2 (08:45→21:55)
[2018-07-18] MEDS: Lisinopril 20 MG Tablet PO SCH (08:45)
--- NOTE | 2018-07-18 09:57 | P.PNVS ---
Subjective Post Op Day #: 1 Procedure: R LE Angiogram Subjective/Hospital Course: 58/F s/p R LE revascularization Pt w/o complaints Groins S/NT Objective Vital Signs / I&O: Vital Signs 07/17/18 12:00 07/17/18 12:15 07/17/18 17:01 Temperature 98.8 F Pulse Rate 78 Respiratory Rate 18 Blood Pressure 189/88 H 158/80 H Pulse Oximetry 96 96 07/17/18 20:00 07/17/18 21:00 07/17/18 22:00 Temperature 99.1 F Pulse Rate 79 88 86 Respiratory Rate 18 21 18 Blood Pressure 184/79 H 179/82 H 182/84 H Pulse Oximetry 95 93 L 93 L 07/17/18 23:00 07/18/18 00:00 07/18/18 03:00 Temperature 98.9 F Pulse Rate 92 H 72 78 Respiratory Rate 20 18 20 Blood Pressure 184/84 H 123/59 L 123/59 L Pulse Oximetry 94 L 92 L 94 L 07/18/18 04:00 Temperature Pulse Rate 69 Respiratory Rate 22 Blood Pressure Pulse Oximetry 96 Intake & Output 07/17/18 07/18/18 07/18/18 18:59 06:59 18:59 Intake Total 50 / 50 100 / 100 1000 / 1000 Balance 50 / 50 100 / 100 1000 / 1000 Intake: IV 50 / 50 100 / 100 1000 / 1000 NS Inj 1,000 ML @ 100 mls/hr IV 1000 / 1000 .CONT .Q10H [facility] Rx#:[id number] Zosyn 3.375 GM Premix 50 ML @ 50 / 50 100 / 100 100 mls/hr IV.SIG Q6H [facility] Rx#: [id number] Other: Date of Last Bowel Movement 07/16/18 07/16/18 Exam: R LE warm w/ motor intact Strong palpable R DP 2+ Wound stable to R foot B groins S/NT Laboratory Results - last 24 hr 07/17/18 07/18/18 07/18/18 22:12 04:45 04:45 WBC 10.3 RBC 3.70 L Hgb 10.6 L Hct 31.4 L MCV 84.9 MCH 28.8 MCHC 33.9 RDW 13.5 Plt Count 292 MPV 7.5 Neut % (Auto) 78.3 H Lymph % (Auto) 13.8 [place] % (Auto) 5.5 Eos % (Auto) 2.0 Baso % (Auto) 0.4 Neut # (Auto) 8.1 H Lymph # (Auto) 1.4 [place] # (Auto) 0.6 Eos # (Auto) 0.2 Baso # (Auto) 0.0 WBC Differential . Differential Comment Auto diff final Sodium 137 Potassium 3.9 Chloride 103 Carbon Dioxide 26.4 Anion Gap 8 BUN 26 H Creatinine 1.25 H Estimated GFR 44 L POC Glucose 127 H Random Glucose 209 H Calcium 8.4 L Total Bilirubin 0.4 AST 9 L ALT 14 Alkaline Phosphatase 57 Total Protein 7.1 D Albumin 2.9 L 07/18/18 08:43 WBC RBC Hgb Hct MCV MCH MCHC RDW Plt Count MPV Neut % (Auto) Lymph % (Auto) [place] % (Auto) Eos % (Auto) Baso % (Auto) Neut # (Auto) Lymph # (Auto) [place] # (Auto) Eos # (Auto) Baso # (Auto) WBC Differential Differential Comment Sodium Potassium Chloride Carbon Dioxide Anion Gap BUN Creatinine Estimated GFR POC Glucose 144 H Random Glucose Calcium Total Bilirubin AST ALT Alkaline Phosphatase Total Protein Albumin Microbiology 07/15/18 02:15 Gram Stain - Final Abscess - Toe Wound Culture - Final Staphylococcus aureus Assessment and Plan - Plan 58/F S/P balloon angioplasty of the right popliteal artery using a 4 mm balloon followed by drug-coated balloon Pt w/o complaints doing well Successful R LE revascularization Pt now w/ palpable R DP Wound stable to R foot Plan Patient will need Plavix for 6 weeks - ON HOLD for surgical intervention this afternoon Discussed post operative f/u w/ pt Questions answered Pt clear for d/c from a vascular standpoint Arranged out pt f/u in a few weeks with a surveillance VALERIA Fatoumata Rodriguez NP [facility] [phone] Discharge Planning: Today from a vascular standpoint F/U arranged
[2018-07-18] MEDS ORDERED: Ketamine Inj 50 MG/5 ML Syringe IV.PUSH ONE (15:42)
[2018-07-18] MEDS ORDERED: Lidocaine 2% Inj 50 ML Vial ONE (16:31)
[2018-07-18] MEDS ORDERED: Bupivacaine PF 0.5% Inj 30 ML Vial ONE (16:31)
--- NOTE | 2018-07-18 17:41 | P.BOP ---
- Preoperative Diagnosis (1) Osteomyelitis of toe of right foot - Postoperative Diagnosis (1) Osteomyelitis of toe of right foot Date of procedure: 07/18/18 Procedure: 1. amputation right 5th toe with debridement of necrotic bone. Right 5th toe addressed and noted to have necrotic/fibrotic tissue to distal 2/ 3 of digit and exposed bone. Necrotic tissue debrided and toe disarticulated at level of right 5th metatarsophalangeal joint. Culture taken. Irrigation and closure with 2-0 nylon suture. Dressing with xeroform, 4x4, abd, cast padding, latasha. No tourniquet utilized. DISPOSITION: Weightbearing as tolerated right foot in surgical shoe (is weightbearing as tolerated in fracture boot left due to achilles tendon rupture being treated nonoperatively. Keep dressing clean, dry, intact. Continue IV antibiotics until culture results back. If negative for growth, will be OK with discharge home and follow up in my clinic in 1 week for dressing change. No further treatment planned at this time Anesthesia: MAC, local (10mL 0.5% marcaine plain) Surgeon: Susu Sahu DPM Geospatial Technician: staff Estimated blood loss (mL): 5 Pathology: other (1. culture right foot, 2. right 5th toe to pathology) Condition: stable Disposition: PACU
--- NOTE | 2018-07-18 18:42 | MP ---
cc: Susu Sahu DPM DATE OF OPERATION: 07/18/2018 INDICATIONS: The patient presented to the emergency room with worsening infection to the right fifth toe. She was seen and evaluated, with MRI showing findings consistent with osteomyelitis to the fifth digit. I discussed with the patient the risks, benefits, potential complications of surgery. She agreed to move forward with amputation of right fifth toe. The patient was seen in preop holding by myself, nursing staff and anesthesia where the correct patient, side, and site were all confirmed to be correct in the right foot. She was then taken to the surgical suite in supine position. The right foot was prepped and draped in normal sterile fashion. After a timeout per facility protocol, attention was directed to the right fifth toe where the necrotic tissue was noted to the distal 2/3 of the digit with exposed bone and significant fibronecrotic tissue. The necrotic tissue was debrided down to bone and the toe was actually disarticulated at the level of the right fifth metatarsophalangeal joint. The margins appear to be very healthy and bleeding at this area with no purulence or necrosis. I had a culture taken from the residual wound, followed by irrigation and closure with 2-0 nylon suture. Dressing consisting of Xeroform, 4 x 4's, ABD, cast padding and Mason bandage were applied to the right lower extremity. The patient will be weightbearing as tolerated to the right lower extremity in a surgical shoe and will follow up in clinic in 1 week for a dressing change. I do recommend that she stay in-house and await the culture results while continuing to receive IV antibiotics. No further surgery is planned at this time. SHORT OPERATIVE NOTE SURGEON: Susu Sahu DPM ENDBANDER: Staff. PREOPERATIVE DIAGNOSIS: Osteomyelitis, right fifth toe. POSTOPERATIVE DIAGNOSIS: Osteomyelitis, right fifth toe. PROCEDURE PERFORMED: Amputation, right fifth toe with debridement of necrotic bone, right fifth toe. PATHOLOGY: 1. Culture right foot. 2. Right fifth toe to pathology. ANESTHESIA: 1. IV Zosyn. ESTIMATED BLOOD LOSS: 5 mL. HEMOSTASIS: No tourniquet utilized. CONDITION: Stable to PACU. COMPLICATIONS: None. DISPOSITION: Weightbearing as tolerated, right foot in surgical shoe, and weightbearing as tolerated left in fracture boot due to an Achilles tendon rupture that is being treated nonoperatively. Keep dressing clean, dry and intact and continue IV antibiotics until the culture results are in. In if there is no growth, she may be discharged home and follow up in my clinic in 1 week for a dressing change and further evaluation. NATASHA Kang , 05:45 PM , 05:52 PM
--- NOTE | 2018-07-18 18:55 | XR ---
EXAM DATE: 07/18/2018 6:43 PM EST AGE/SEX: 58 years / Female INDICATIONS: Post op, surgery for osteomyelitis. CLINICAL DATA: This is the patient's initial encounter. Patient reports that signs and symptoms have been present for 1 day and indicates a pain score of 4/10. MEDICAL/SURGICAL HISTORY: . bilateral cataracts, diabetes, hypertension, peripheral neuropathy . right great toe amputation . [place] [facility] [place]. . FINDINGS: 3 films demonstrates the fifth toe has been removed. The third MTP joint remains dislocated. Mild spu rring of the calcaneus. No foreign Bodies are identified CONCLUSION: Surgery to the fifth toe. new baseline exam. Electronically signed by: John Lee MD 07/18/2018 6:53 PM EST
--- NOTE | 2018-07-18 20:31 | P.PNIM ---
Subjective Interval history: Patient in no acute distress. No current complaints from the patient. Physical Exam Vital signs: Vital Signs 07/17/18 21:00 07/17/18 22:00 07/17/18 23:00 Temperature Pulse Rate 88 86 92 H Respiratory Rate 21 18 20 Blood Pressure 179/82 H 182/84 H 184/84 H Pulse Oximetry 93 L 93 L 94 L 07/18/18 00:00 07/18/18 03:00 07/18/18 04:00 Temperature 98.9 F Pulse Rate 72 78 69 Respiratory Rate 18 20 22 Blood Pressure 123/59 L 123/59 L Pulse Oximetry 92 L 94 L 96 07/18/18 07:00 07/18/18 08:00 07/18/18 09:00 Temperature 98.5 F Pulse Rate 70 75 65 Respiratory Rate 22 Blood Pressure 118/58 L Pulse Oximetry 96 07/18/18 10:00 07/18/18 12:00 07/18/18 13:33 Temperature 98.4 F Pulse Rate 62 71 68 Respiratory Rate 18 Blood Pressure 144/70 H Pulse Oximetry 99 07/18/18 13:47 07/18/18 14:00 07/18/18 17:42 Temperature 97.4 F L Pulse Rate 66 74 Respiratory Rate 16 Blood Pressure 91/53 L Pulse Oximetry 96 95 07/18/18 17:45 07/18/18 18:00 07/18/18 18:01 Temperature Pulse Rate 74 71 71 Respiratory Rate 20 25 H 27 H Blood Pressure 113/55 L 163/70 H Pulse Oximetry 98 98 99 07/18/18 18:15 07/18/18 18:30 07/18/18 18:31 Temperature 97.5 F L Pulse Rate 77 69 69 Respiratory Rate 25 H 23 16 Blood Pressure 155/72 H 164/74 H Pulse Oximetry 96 97 99 Intake & Output 07/18/18 07/18/18 07/19/18 06:59 18:59 06:59 Intake Total 100 / 100 1500 / 1500 Output Total 5 / 5 Balance 100 / 100 1495 / 1495 Intake: IV 100 / 100 1100 / 1100 NS Inj 1,000 ML @ 100 mls/hr IV 1000 / 1000 .CONT .Q10H [facility] Rx#:[id number] Zosyn 3.375 GM Premix 50 ML @ 100 / 100 100 / 100 100 mls/hr IV.SIG Q6H [facility] Rx#: [id number] Oral 0 / 0 Anesthesia Amount 400 / 400 Output: Estimated Blood Loss 5 / 5 Other: # Voids 2 Date of Last Bowel Movement 07/16/18 # Bowel Movements 0 Narrative: Aler and oriented x 3 S1 S2 CTA B/L Right foot with bandage, s/p amputation of right 5th digit No neurological deficits Results - Labs CBC & Chem 7: 07/18/18 04:45 07/18/18 04:45 Laboratory Results - last 24 hr 07/17/18 07/18/18 07/18/18 22:12 04:45 04:45 WBC 10.3 RBC 3.70 L Hgb 10.6 L Hct 31.4 L MCV 84.9 MCH 28.8 MCHC 33.9 RDW 13.5 Plt Count 292 MPV 7.5 Neut % (Auto) 78.3 H Lymph % (Auto) 13.8 [place] % (Auto) 5.5 Eos % (Auto) 2.0 Baso % (Auto) 0.4 Neut # (Auto) 8.1 H Lymph # (Auto) 1.4 [place] # (Auto) 0.6 Eos # (Auto) 0.2 Baso # (Auto) 0.0 WBC Differential . Differential Comment Auto diff final Sodium 137 Potassium 3.9 Chloride 103 Carbon Dioxide 26.4 Anion Gap 8 BUN 26 H Creatinine 1.25 H Estimated GFR 44 L POC Glucose 127 H Random Glucose 209 H Calcium 8.4 L Total Bilirubin 0.4 AST 9 L ALT 14 Alkaline Phosphatase 57 Total Protein 7.1 D Albumin 2.9 L 07/18/18 07/18/18 08:43 12:25 WBC RBC Hgb Hct MCV MCH MCHC RDW Plt Count MPV Neut % (Auto) Lymph % (Auto) [place] % (Auto) Eos % (Auto) Baso % (Auto) Neut # (Auto) Lymph # (Auto) [place] # (Auto) Eos # (Auto) Baso # (Auto) WBC Differential Differential Comment Sodium Potassium Chloride Carbon Dioxide Anion Gap BUN Creatinine Estimated GFR POC Glucose 144 H 144 H Random Glucose Calcium Total Bilirubin AST ALT Alkaline Phosphatase Total Protein Albumin - Imaging Impressions Foot X-Ray 07/18/18 00:00 CONCLUSION: Surgery to the fifth toe. new baseline exam. Assessment and Plan - Plan Patient is a 58 y/o F with poorly controlled diabetes admitted for osteomyelitis of the right foot 5th digit. 1. Osteomyelitis of the right foot fifth digit Patient currently on iv antibiotics S/p amputation of the fifth digit on the right foot today. Patient tolerated the procedure well. Podiatry following. Vascular surgery also following. 2. Diabetes Mellitus 3. Diabetic neuropathy Continue Tresiba Continue low dose insulin sliding scale Will adjust her medications as needed. Continue gabapentin 4. Hypertension blood pressure elevated. Continue lisinopril. Will increase the dose of lisinopril. 5. Peripheral arterial disease, S/P balloon angioplasty of the right popliteal artery using a 4 mm balloon followed by drug-coated balloon Patient doing well as of today after the procedure. Continue plavix. DVT prophylaxix, pt on Heparin
[2018-07-18] MEDS ORDERED: amLODIPine 5 MG Tablet PO ONE (20:35)
[2018-07-19] MEDS: Insulin NovoLOG Aspart Correctional Sugar Inj SQ SCH ×3 (03:00→12:56)
[2018-07-19] MEDS: Piperacil/Tazo 3.375 GM Premix 50 ML IV.SIG SCH ×3 (03:35→16:38)
[2018-07-19 05:28] LABS: Calcium 8.5 mg/dL (8.5-10.1); Carbon Dioxide 28.7 meq/L (21.0-32.0); Magnesium 2.2 mg/dL (1.5-2.5); Potassium 3.6 meq/L (3.5-5.1)
[2018-07-19] MEDS: Sod Chloride 0.9% Inj 1,000 ML IV.CONT SCH ×2 (07:13→09:49)
--- NOTE | 2018-07-19 08:55 | P.DS ---
Date of admission: 07/15/18 03:37 Primary care physician: Buzz Mcleod MD Brief History from admission: 58-yo f with h/o DM with neuropathy,previous multiple toes amputated presented with pain in the right little toe with associated blister for 1 day. No associated fevers or chills. she denies any trauma to her foot. She recently had a surgery on her left achilles tendon which has made it difficult for her to put pressure on the right foot. DS: Medications - Discharge Medications Prescriptions: amlodipine [Norvasc] 5 mg PO DAILY #30 tab clopidogrel [Plavix] 75 mg PO DAILY #45 tab doxycycline hyclate [Vibramycin] 100 mg PO BID #14 cap DS: Summary Hospital Course: 1. Osteomyelitis of the right foot fifth digit 2. Peripheral arterial disease, S/P balloon angioplasty of the right popliteal artery using a 4 mm balloon followed by drug-coated balloon 58-yo f with h/o DM with neuropathy,previous multiple toes amputated presented with pain in the right little toe with associated blister for 1 day. No associated fevers or chills. she denies any trauma to her foot. She recently had a surgery on her left achilles tendon which has made it difficult for her to put pressure on the right foot. The patient was evaluated by Podiatry who recommended amputation of the 5th digit of the right foot. She was also found to have poor palpable the right foot and ended up having angioplasty and balloon dilation to the right popliteal artery. Cultures from the right foot grew staph aureus and the patient will be discharged with one more week of PO doxycycline. She will also need to be on plavix for 6 weeks as per Vascular surgery recommendations. The importance of medication compliance were discussed with the patient. Patient can follow up with her pcp in 1-2 weeks. She can also follow up with podiatry in 1 week for dressing changes and management of her right foot as well as her recent achilles tendon injury and surgery of her left foot. She is able to ambulate with a walker and will be given a front wheel walker on discharge. Patient currently without any pain. She can take over the counter pain meds as needed. 3. Diabetes Mellitus 4. Diabetic neuropathy Patient can continue her home medications for Diabetes. Continue gabapentin for neuropathy. 5. Hypertension Patient had elevated blood pressure during this visit. Norvasc will be added to her medications. Blood pressure now better controlled. 6. CKD Patient has a current GFR of 45. She can follow up outpatient with her pcp and should have evaluation by nephrology for management of her ckd. Avoid nephrotoxic agents. Avoid NSAIDS. Plan discussed with the patient. - Time Spent with Patient Total time spent providing and/or coordinating discharge services: Greater than 30 minutes - Quality: VTE Deep Vein Thrombosis/Pulmonary Embolism Present on Admission: No Exam Vital signs: Vital Signs 07/18/18 09:00 07/18/18 10:00 07/18/18 12:00 Temperature 98.4 F Pulse Rate 65 62 71 Respiratory Rate 18 Blood Pressure 144/70 H Pulse Oximetry 99 07/18/18 13:33 07/18/18 13:47 07/18/18 14:00 Temperature Pulse Rate 68 66 Respiratory Rate Blood Pressure Pulse Oximetry 96 07/18/18 17:42 07/18/18 17:45 07/18/18 18:00 Temperature 97.4 F L Pulse Rate 74 74 71 Respiratory Rate 16 20 25 H Blood Pressure 91/53 L 113/55 L Pulse Oximetry 95 98 98 07/18/18 18:01 07/18/18 18:15 07/18/18 18:30 Temperature Pulse Rate 71 77 69 Respiratory Rate 27 H 25 H 23 Blood Pressure 163/70 H 155/72 H Pulse Oximetry 99 96 97 07/18/18 18:31 07/18/18 19:00 07/18/18 20:00 Temperature 97.5 F L 97.5 F L Pulse Rate 69 65 79 Respiratory Rate 16 18 Blood Pressure 164/74 H 134/64 Pulse Oximetry 99 97 07/18/18 21:00 07/18/18 22:00 07/18/18 23:00 Temperature Pulse Rate 62 66 62 Respiratory Rate Blood Pressure Pulse Oximetry 07/19/18 00:00 07/19/18 01:00 07/19/18 02:00 Temperature 97.5 F L Pulse Rate 73 62 72 Respiratory Rate 18 Blood Pressure 114/54 L Pulse Oximetry 97 07/19/18 03:00 07/19/18 03:33 07/19/18 04:00 Temperature 98.3 F Pulse Rate 71 72 65 Respiratory Rate 16 Blood Pressure 116/55 L Pulse Oximetry 95 07/19/18 05:00 07/19/18 06:00 Temperature Pulse Rate 65 70 Respiratory Rate Blood Pressure Pulse Oximetry Intake & Output 07/18/18 07/19/18 07/19/18 18:59 06:59 18:59 Intake Total 1500 / 1500 340 / 340 1000 / 1000 Output Total 5 / 5 350 / 350 Balance 1495 / 1495 -10 / -10 1000 / 1000 Weight 110.5 kg Intake: IV 1100 / 1100 100 / 100 1000 / 1000 NS Inj 1,000 ML @ 100 mls/hr IV 1000 / 1000 1000 / 1000 .CONT .Q10H [facility] Rx#:[id number] Zosyn 3.375 GM Premix 50 ML @ 100 / 100 100 / 100 100 mls/hr IV.SIG Q6H [facility] Rx#: [id number] Oral 0 / 0 240 / 240 Anesthesia Amount 400 / 400 Output: Urine 350 / 350 Estimated Blood Loss 5 / 5 Other: # Voids 2 # Bowel Movements 0 Narrative: Alert and oriented x 3, no acute distress S1 S2 CTA B/L Right foot with bandage, s/p amputation of right 5th digit. Distal pulses intact No neurological deficits Results Procedures completed during hospitalization: amputation of right 5th digit of right foot. Balloon angioplasty and dilation of right popliteal artery. Pending studies at discharge: Pending at discharge 07/18/18 Surgical [PTH] Routine Labs on day of discharge: Labs from last 24 hours 07/19/18 07/19/18 07/19/18 07:43 04:28 03:31 Sodium 139 Potassium 3.6 Chloride 104 Carbon Dioxide 28.7 Anion Gap 6 BUN 24 H Creatinine 1.15 H Estimated GFR 48 L POC Glucose 152 H 134 H Random Glucose 149 H Calcium 8.5 Magnesium 2.2 07/18/18 07/18/18 21:58 12:25 Sodium Potassium Chloride Carbon Dioxide Anion Gap BUN Creatinine Estimated GFR POC Glucose 271 H 144 H Random Glucose Calcium Magnesium - Impressions ITS Impressions Toe X-Ray 07/15/18 02:06 CONCLUSION: Bone erosion at the distal phalanx fifth toe terminal tuft most characteristic of osteomyelitis with overlying soft tissue swelling. Dislocation at the second and third metatarsophalangeal joints with additional fracture at the third toe. Extremity Arterial Study 07/16/18 00:00 CONCLUSION: 1. Significantly diminished VALERIA and TBI on the right. 2. VALERIA on the left is within normal limits. TBI is mildly diminished. Foot MRI 07/17/18 00:00 CONCLUSION: 1. There is abnormal T2 signal in marrow enhancement involving the distal phalanx of the fifth digit concerning for osteomyelitis. 2. Previous amputations as above. 3. Diffuse soft tissue edema along the dorsal aspect of the foot. 4. No focal, drainable abscess identified. Foot X-Ray 07/18/18 00:00 CONCLUSION: Surgery to the fifth toe. new baseline exam. Discharge Plan - Discharge Disposition Patient Disposition: Discharge Home - Discharge Condition Condition: Good - Discharge Order Discharge Orders: Discharge Order (Routine); Ordered 07/19/18 Ordered By: Juju Pineda - Physicians Team Primary Care Provider: Buzz Mcleod Attending Provider: Juju Pineda Other Providers: Es Mayes DPM ; Félix Boudreaux MD
[2018-07-19] MEDS ORDERED: amLODIPine 5 MG Tablet PO SCH (09:00)
[2018-07-19] MEDS: Heparin - SQ 10,000 UNITS/ML Vial SQ SCH (09:13)
[2018-07-19] MEDS: Famotidine PF Inj 20 MG/2 ML Vial IV.PUSH SCH (09:14)
[2018-07-19] MEDS: Gabapentin 300 MG Capsule PO SCH (09:14)
[2018-07-19] MEDS: Lisinopril 20 MG Tablet PO SCH (09:14)
[2018-07-19] MEDS: Senna/Docusate Sodium 8.6/50 MG Tablet PO SCH (09:14)
--- NOTE | 2018-07-19 10:33 | ECG ---
Date Performed: 07/18/2018 Time Performed: 16:21:18 PTAGE: 58 years EKG: Sinus rhythm NORMAL ECG NO PREVIOUS TRACING DOCTOR: John Lamb Interpretating Date/Time 07/19/2018 10:31:32
== END 2018-07-19 16:34 | disposition home or self-care (01) ==
LOC: NEPE 00:20 → NEDA 03:37 → NEPGCP 05:29 → N07 07-17 14:41 → N03 07-17 17:32 → HCPC 07-17 17:52
PROVIDERS: ADMIT Hospitalist; ATTEND Hospitalist
PROC: ANGIOLE (2018-07-17 14:00)